=== PATIENT | male | born 1955 | race American Indian/Alaskan Native ===

== ENCOUNTER 2016-09-28 16:30 | Outpatient (CLI) | payer MEDICARE ==
[2016-09-28 16:58] LABS: BUN/Creatinine Ratio 14.61; Calcium 8.3 mg/dL (8.4-10.2); Chloride 103.4 mmol/L (98-107); Potassium 5.7 mmol/L (3.6-5.0)
== END 2016-09-28 16:31 | disposition home or self-care (01) ==
LOC: LAB 16:30
PROVIDERS: ATTEND Internal Medicine Nephrology
DX: I12.9 Hypertensive chronic kidney disease with stage 1 through stage 4 chronic kidney disease, or unspecified chronic kidney disease (principal); N18.3 Chronic kidney disease, stage 3 (moderate); E08.29 Diabetes mellitus due to underlying condition with other diabetic kidney complication; I50.9 Heart failure, unspecified; R94.4 Abnormal results of kidney function studies; R60.9 Edema, unspecified; R80.9 Proteinuria, unspecified
CPT/HCPCS: 36415; 80048

== ENCOUNTER 2016-10-05 16:53 | Outpatient (CLI) | payer MEDICARE ==
[2016-10-05 17:39] LABS: Bilirubin,Urine NEG (Negative); Blood,Urine NEG (Negative); Ketones,Urine NEG (Negative); Leukocyte Esterase,Urine NEG (Negative); Nitrite,Urine NEG (Negative); Protein,Urine >500 mg/dL (Negative); Urobilinogen,Urine < 2.0 mg/dL (<2.0)
[2016-10-05 17:50] LABS: Potassium, Urine 49.92 mEq/L
[2016-10-05 17:51] LABS: Albumin 3.6 g/dL (3.9-5); BUN/Creatinine Ratio 16.52; Calcium 8.6 mg/dL (8.4-10.2); Chloride 104.8 mmol/L (98-107); Phosphorous 3.9 mg/dL (2.5-4.5); Potassium 5.4 mmol/L (3.6-5.0)
== END 2016-10-05 16:54 | disposition home or self-care (01) ==
LOC: LAB 16:53
PROVIDERS: ATTEND Internal Medicine Nephrology
DX: N18.3 Chronic kidney disease, stage 3 (moderate) (principal)
CPT/HCPCS: 36415; 80048; 81001; 82040; 82436; 83930; 83935; 84100; 84133; 84300

== ENCOUNTER 2017-12-21 13:23 | Outpatient (CLI) | payer MEDICARE ==
[2017-12-21 13:01] LABS: Calcium 8.2 mg/dL (8.4-10.2)
== END 2017-12-21 13:24 | disposition home or self-care (01) ==
LOC: LAB 13:23
PROVIDERS: ATTEND Internal Medicine Nephrology
DX: I12.9 Hypertensive chronic kidney disease with stage 1 through stage 4 chronic kidney disease, or unspecified chronic kidney disease (principal); N18.4 Chronic kidney disease, stage 4 (severe); E11.22 Type 2 diabetes mellitus with diabetic chronic kidney disease; D63.1 Anemia in chronic kidney disease; E87.5 Hyperkalemia; I73.9 Peripheral vascular disease, unspecified; E87.2 Acidosis; Z79.899 Other long term (current) drug therapy
CPT/HCPCS: 36415; 80048

== ENCOUNTER 2019-03-11 17:28 | Inpatient (IN) | payer MEDICARE ==
[2019-03-11] MEDS ORDERED: PROTONIX IV ONE (17:53)
[2019-03-11] MEDS ORDERED: NACL 0.9% 500 ML 500 ML IV ONE (17:53)
[2019-03-11] MEDS ORDERED: ZOFRAN IV ONE (17:53)
--- NOTE | 2019-03-11 17:55 | Emergency Department Report ---
ED GI Bleed HPI - General Chief complaint: GI Bleed Stated complaint: GI BLEED Time Seen by Provider: 03/11/19 17:36 Source: patient, EMS (ems notes not available at time of chart dictation. Verbal report received from EMS), RN notes reviewed, old records reviewed Mode of arrival: Stretcher Limitations: Physical Limitation - History of Present Illness Initial comments: This is a pleasant 63-year-old gentleman. The patient is not known to this provider previously. Nephrology: Dr. Ez Reddy medical history: End-stage renal disease, on dialysis, reportedly Sunday, Sunday, Sunday, peripheral artery disease, left lower extremity below-knee a mputation, type 2 diabetes and hypertension. Patient takes heparin while receiving dialysis, otherwise, does not receive anticoagulation. Patient presents to the emergency room today with a complaint of nausea, vomiting 3, dark bloody stools, and 2 episodes of bloody emesis. Nausea started a few days ago, but he emesis and dark stool started today. Positive abdominal cramping, but no pain. Symptoms are constant, did not radiate anywhere, and worsens when he attempts to eat or drink. MD complaint: gross hematemesis, melena -: Gradual, days(s) Quality: cramping Consistency: intermittent Improves with: other Worsens with: other Context: blood thinners, other - Related Data Home Medications Medication Instructions Recorded Confirmed Last Taken B Complex W-C No.20/Folic Acid 1 mg PO QDAY 03/11/19 03/11/19 Unknown [Virt-Caps Softgel] Calcium Acetate [Phoslo] 667 mg PO TID 03/11/19 03/11/19 Unknown Furosemide [Lasix TAB] 80 mg PO QAM 03/11/19 03/11/19 Unknown Sevelamer Carbonate [Renvela] 800 mg PO TIDWM 03/11/19 03/11/19 Unknown cloNIDine [Catapres] 0.1 mg PO TID 03/11/19 03/11/19 Unknown Previous Rx's Medication Instructions Recorded Last Taken Type amLODIPine [Norvasc] 10 mg PO DAILY #30 tablet 02/14/17 Unknown Rx Allergies Allergy/AdvReac Type Severity Reaction Status Date / Time No Known Allergies Allergy Verified 02/09/17 17:59 ED Review of Systems ROS: Stated complaint: GI BLEED Other details as noted in HPI Constitutional: malaise. denies: fever Eyes: denies: eye discharge ENT: denies: epistaxis Respiratory: denies: cough Cardiovascular: denies: chest pain Gastrointestinal: nausea, hematemesis, melena. denies: hematochezia Genitourinary: as per HPI. denies: dysuria Musculoskeletal: denies: arthralgia Skin: denies: lesions Neurological: weakness Psychiatric: anxiety Hematological/Lymphatic: denies: easy bleeding ED Past Medical Hx - Past Medical History Previous Medical History?: Yes Hx Hypertension: Yes Hx Heart Attack/AMI: No Hx Congestive Heart Failure: No Hx Diabetes: Yes Hx Renal Disease: Yes (HD MWF) Hx Seizures: No Hx Asthma: No Hx COPD: No Additional medical history: NEUROPATHY - Surgical History Past Surgical History?: Yes Hx Appendectomy: Yes Additional Surgical History: LEFT BKA. TONSILLECTOMY - Social History Smoking Status: Never Smoker Substance Use Type: None - Medications Home Medications: Home Medications Medication Instructions Recorded Confirmed Last Taken Type amLODIPine [Norvasc] 10 mg PO DAILY #30 tablet 02/14/17 03/11/19 Unknown Rx B Complex W-C No.20/Folic Acid 1 mg PO QDAY 03/11/19 03/11/19 Unknown History [Virt-Caps Softgel] Calcium Acetate [Phoslo] 667 mg PO TID 03/11/19 03/11/19 Unknown History Furosemide [Lasix TAB] 80 mg PO QAM 03/11/19 03/11/19 Unknown History Sevelamer Carbonate [Renvela] 800 mg PO TIDWM 03/11/19 03/11/19 Unknown History cloNIDine [Catapres] 0.1 mg PO TID 03/11/19 03/11/19 Unknown History ED Physical Exam - General Limitations: Physical Limitation General appearance: alert, anxious - Head Head exam: Present: atraumatic, normocephalic - Eye Eye exam: Present: normal appearance, EOMI. Absent: nystagmus - ENT ENT exam: Present: normal orophraynx, mucous membranes moist, normal external ear exam - Neck Neck exam: Present: normal inspection, full ROM. Absent: tenderness, meningism us - Respiratory Respiratory exam: Present: normal lung sounds bilaterally. Absent: respiratory distress - Cardiovascular Cardiovascular Exam: Present: regular rate, normal rhythm, normal heart sounds. Absent: bradycardia, tachycardia, irregular rhythm, systolic murmur, diastolic murmur, rubs, gallop - GI/Abdominal GI/Abdominal exam: Present: soft. Absent: distended, tenderness, guarding, rebound, rigid, pulsatile mass - Rectal Rectal exam: Present: normal inspection, heme (+) stool, bloody stool, other (chaperoned by nurse Aziza Mccallum) - Extremities Exam Extremities exam: Present: normal inspection, full ROM, other (left lower extremity status post below-knee amputation, prosthesis is in place. 2+ pulses noted in the bilateral upper extremity. There is no point bony tenderness.) - Back Exam Back exam: Present: normal inspection, full ROM. Absent: tenderness, CVA tenderness (R), CVA tenderness (L), paraspinal tenderness, vertebral tenderness - Neurological Exam Neurological exam: Present: alert, oriented X3, other (Extraocular movements intact. Tongue midline. No facial droop. Facial sensation intact to light touch in the V1, V2, V3 distribution bilaterally. 5 and 5 strength in 4 extremities.. Sensation is intact to light touch in 4 extremities.). Absent: motor sensory deficit - Psychiatric Psychiatric exam: Present: normal affect, normal mood, anxious - Skin Skin exam: Present: warm, dry, intact, normal color, other (permacath noted to right hemithorax, with no redness, pus or streaking.). Absent: rash ED Course Vital Signs 03/11/19 03/11/19 03/11/19 17:38 17:40 17:46 Temperature 98.2 F Pulse Rate 89 88 88 Respiratory 18 15 17 Rate Blood Pressure 117/60 117/60 Blood Pressure [Right] O2 Sat by Pulse 100 100 97 Oximetry 03/11/19 03/11/19 03/11/19 18:00 18:10 18:20 Temperature Pulse Rate 88 79 84 Respiratory 17 12 14 Rate Blood Pressure 112/55 108/40 128/51 Blood Pressure [Right] O2 Sat by Pulse 97 89 98 Oximetry 03/11/19 03/11/19 03/11/19 18:30 18:40 18:50 Temperature Pulse Rate 87 84 82 Respiratory 15 12 13 Rate Blood Pressure 128/51 128/51 138/70 Blood Pressure [Right] O2 Sat by Pulse 98 95 95 Oximetry 03/11/19 03/11/19 03/11/19 18:52 19:00 19:10 Temperature Pulse Rate 92 H 92 H Respiratory 15 18 14 Rate Blood Pressure 135/63 135/63 Blood Pressure [Right] O2 Sat by Pulse 100 99 100 Oximetry 03/11/19 03/11/19 03/11/19 19:20 19:30 19:40 Temperature Pulse Rate 92 H 89 89 Respiratory 20 14 13 Rate Blood Pressure 133/64 133/64 113/52 Blood Pressure [Right] O2 Sat by Pulse 100 98 96 Oximetry 03/11/19 03/11/19 03/11/19 19:44 19:50 20:00 Temperature Pulse Rate 88 89 85 Respiratory 19 17 13 Rate Blood Pressure 135/63 125/53 Blood Pressure 113/52 [Right] O2 Sat by Pulse 99 99 98 Oximetry 03/11/19 03/11/19 03/11/19 20:10 20:20 20:30 Temperature Pulse Rate 85 86 91 H Respiratory 19 13 14 Rate Blood Pressure 125/53 117/48 117/48 Blood Pressure [Right] O2 Sat by Pulse 96 98 100 Oximetry 03/11/19 03/11/19 03/11/19 20:40 20:50 21:00 Temperature Pulse Rate 88 88 91 H Respiratory 14 17 20 Rate Blood Pressure 117/48 117/48 125/53 Blood Pressure [Right] O2 Sat by Pulse 99 98 100 Oximetry 03/11/19 03/11/19 03/11/19 21:10 21:20 21:30 Temperature Pulse Rate 89 88 88 Respiratory 19 14 14 Rate Blood Pressure 125/53 125/53 125/53 Blood Pressure [Right] O2 Sat by Pulse 99 96 97 Oximetry 03/11/19 03/11/19 03/11/19 21:40 21:50 22:00 Temperature Pulse Rate 87 88 90 Respiratory 12 14 14 Rate Blood Pressure 125/53 125/53 125/53 Blood Pressure [Right] O2 Sat by Pulse 98 97 97 Oximetry 03/11/19 03/11/19 03/11/19 22:01 22:10 22:20 Temperature Pulse Rate 88 87 87 Respiratory 16 13 13 Rate Blood Pressure 148/57 138/54 Blood Pressure 148/57 [Right] O2 Sat by Pulse 98 97 96 Oximetry 03/11/19 03/11/19 03/11/19 22:30 22:40 22:41 Temperature Pulse Rate 95 H 100 H 94 H Respiratory 24 23 20 Rate Blood Pressure 138/54 141/62 Blood Pressure 142/62 [Right] O2 Sat by Pulse 98 97 98 Oximetry 03/11/19 03/11/19 03/11/19 22:50 23:00 23:10 Temperature Pulse Rate 91 H 89 89 Respiratory 15 16 19 Rate Blood Pressure 163/67 168/70 168/70 Blood Pressure [Right] O2 Sat by Pulse 98 96 99 Oximetry 03/11/19 03/11/19 03/11/19 23:20 23:30 23:40 Temperature Pulse Rate 87 86 89 Respiratory 14 13 19 Rate Blood Pressure 168/58 164/53 142/58 Blood Pressure 142/58 [Right] O2 Sat by Pulse 99 98 99 Oximetry 03/11/19 03/12/19 23:50 00:00 Temperature Pulse Rate 94 H 89 Respiratory 25 H 14 Rate Blood Pressure 143/66 164/53 Blood Pressure [Right] O2 Sat by Pulse 98 97 Oximetry - Reevaluation(s) Reevaluation #1: 03/11/19 18:29 Differential diagnosis, including not limited to: GERD, gastritis, hiatal hernia, upper GI bleed, anemia, electrolyte derangement Assessment and plan: 63-year-old gentleman with probable upper GI bleed. He is afebrile with reassuring vital signs. He is adamant that he does not want it packed red blood cell transfusion. He is amenable to IV placement, laboratory studies, and medical management. He is amenable to hospitalization. We will treat him with intravenous desmopressin, proton pump inhibitor, and consult gastroenterology. Contacted his covering vehicle dynamics engineer, Dr. Avelar, who agrees to follow in consultation. Reevaluation #2: 03/11/19 18:58 Discussed with gastroenterology, Dr. Baldomero Vee, he agrees with plan for admission and agrees with management plan Reevaluation #3: 03/11/19 19:09 X-ray of the chest unremarkable. Multiple discussions had with family regarding desmopressin. Family is amenable to desmopressin, fluids, and Protonix. Hospital physician, Dr. Rha Elaine to admit patient Reevaluation #4: 03/11/19 19:54 Laboratory studies have been checked by myself repeatedly. So far, potassium has not resulted. I will defer to the inpatient team to follow this up. - EJ/Peripheral Line Neck L Time Out Performed: Yes Indications: nurses unable to establis Skin Cleansed in Sterile Fashion: Yes Size: 20 Dressing Placed: Tegaderm Patient Tolerated Procedure: well ED Medical Decision Making - Lab Data Result diagrams: 03/12/19 05:24 03/12/19 05:24 Vital Signs 03/11/19 17:40 Temperature 98.2 F Pulse Rate 88 Respiratory 15 Rate Blood Pressure 117/60 O2 Sat by Pulse 100 Oximetry - EKG Data -: EKG Interpreted by Me EKG shows normal: sinus rhythm Rate: normal - EKG Data 03/11/19 18:44 This is a sinus rhythm, 82 beats per minute, rightward axis, QTC is prolonged, interventricular conduction delay, right bundle branch block, low voltage, abnormal EKG, not consistent with ST elevation myocardial infarction, unchanged from prior EKG from 2015. - Radiology Data Radiology results: pending Critical Care Time: Yes Critical care time in (mins) excluding proc time.: 35 Critical care attestation.: If time is entered above; I have spent that time in minutes in the direct care of this critically ill patient, excluding procedure time. ED Disposition Clinical Impression: GI bleed, ESRD (end stage renal disease) Disposition: DC-[id number] OP ADMIT IP TO THIS HOSP Is pt being admited?: Yes Condition: Serious
[2019-03-11] MEDS ORDERED: DDAVP 30 MCG in NACL 0.9% 50 ML IV ONE (18:30)
[2019-03-11 19:05] LABS: Basophils % (Auto) 0.6 % (0.0-1.8); Eosinophils # (Auto) 0.1 K/mm3 (0.0-0.4); Eosinophils % (Auto) 0.8 % (0.0-4.3); Hematocrit 26.5 % (35.5-45.6); Hemoglobin 9.3 gm/dl (11.8-15.2); Lymphocytes # (Auto) 0.6 K/mm3 (1.2-5.4); Lymphocytes % (Auto) 9.1 % (13.4-35.0); Mean Corpuscular HGB Conc 35 % (32-34); Mean Corpuscular Volume 87 fl (84-94); Monocytes # (Auto) 0.5 K/mm3 (0.0-0.8); Monocytes % (Auto) 6.8 % (0.0-7.3); Platelet Count 161 K/mm3 (140-440); Red Blood Count 3.05 M/mm3 (3.65-5.03); Red Cell Distribution Width 15.8 % (13.2-15.2)
--- NOTE | 2019-03-11 19:13 | XRay Report ---
CHEST 1 VIEW 6:36 PM INDICATION / CLINICAL INFORMATION: GI Bleed. Weakness for 3 days. COMPARISON: None available. FINDINGS: SUPPORT DEVICES: There is a right jugular permacath with the tip overlying the upper right atrium. HEART / MEDIASTINUM: The heart size and pulmonary vasculature are normal. LUNGS / PLEURA: No significant pulmonary or pleural abnormality. No pneumothorax. ADDITIONAL FINDINGS: No significant additional findings. IMPRESSION: No acute findings. Signer Name: Vito Richard MD Signed: 03/11/2019 6:08 PM Workstation Name: [id number]
[2019-03-11 19:17] LABS: INR 1.2 (0.87-1.13)
[2019-03-11 19:18] LABS: Calcium 10.6 mg/dL (8.4-10.2)
[2019-03-11] MEDS ORDERED: ZOFRAN IV PRN (19:41)
[2019-03-11] MEDS ORDERED: SODIUM CHLORIDE FLUSH SYRINGE 10 ML IV PRN (19:41)
[2019-03-11] MEDS ORDERED: TYLENOL PO PRN (19:41)
[2019-03-11] MEDS ORDERED: D50W (25GM) Syringe IV PRN (19:44)
[2019-03-11] MEDS ORDERED: NACL 0.9% IV SCH (20:00)
[2019-03-11] MEDS ORDERED: NACL 0.9% 1000 ML 1,000 ML IV SCH (20:00)
[2019-03-11] MEDS ORDERED: DDAVP IV SCH (20:00)
[2019-03-11] MEDS: PROTONIX 80 MG in NACL 0.9% 100 ML IV SCH (20:05)
--- NOTE | 2019-03-11 20:10 | History and Physical Report ---
<YUNIOR WILLSON - Last Filed: 03/11/19 21:24> History of Present Illness Date of examination: 03/11/19 Date of admission: 03/11/19 19:10 Chief complaint: Nausea, emesis, dark bloody stools History of present illness: 63-year-old -Vietnamese male with history of ESRD on HD M/W/F, DM2 with neuropathy, HTN, left BKA presents to [facility] ED with complaints of nausea, vomiting, hematemesis, and dark bloody stools. Patient states that he has been experiencing nausea and vomiting for the past 2 days. He developed dark bloody stools and hematemesis one day ago. His last HD was yesterday and he received heparin during the HD session. Patient states that he took ibuprofen 1600mg daily x4 days for pain associated with diabetic neuropathy. He is unsure whether the ibuprofen is contributing to his current symptoms. He admits to dif fuse abdominal cramping but denies pain. Past History Past Medical History: diabetes (DM2), ESRD (on HD M/W/F), hypertension, other Past Surgical History: appendectomy, tonsillectomy, Other (left BKA). denies: total hip replacement (neuropathy) Social history: Family history: no significant family history Medications and Allergies Allergies Allergy/AdvReac Type Severity Reaction Status Date / Time No Known Allergies Allergy Verified 02/09/17 17:59 Home Medications Medication Instructions Recorded Confirmed Last Taken Type amLODIPine [Norvasc] 10 mg PO DAILY #30 tablet 02/14/17 03/11/19 Unknown Rx B Complex W-C No.20/Folic Acid 1 mg PO QDAY 03/11/19 03/11/19 Unknown History [Virt-Caps Softgel] Calcium Acetate [Phoslo] 667 mg PO TID 03/11/19 03/11/19 Unknown History Furosemide [Lasix TAB] 80 mg PO QAM 03/11/19 03/11/19 Unknown History Sevelamer Carbonate [Renvela] 800 mg PO TIDWM 03/11/19 03/11/19 Unknown History cloNIDine [Catapres] 0.1 mg PO TID 03/11/19 03/11/19 Unknown History Active Meds: Active Medications Acetaminophen (Tylenol) 650 mg PO Q4H PRN PRN Reason: Pain MILD(1-3)/Fever >100.5/RUIZ Dextrose (D50w (25gm) Syringe) 50 ml IV PRN PRN PRN Reason: Hypoglycemia Pantoprazole Sodium 80 mg/ (Sodium Chloride) 100 mls @ 10 mls/hr IV DIRECT [place] Sodium Chloride (Nacl 0.9% 1000 Ml) 1,000 mls @ 42 mls/hr IV DIRECT [place] Desmopressin Acetate 8.1 mcg/ (Sodium Chloride) 52.025 mls @ 100 mls/hr IV Q8H [place] Stop: 03/12/19 04:32 Insulin Human Regular (Humulin R) 0 units SUB-Q Q6HR [place]; Protocol Ondansetron HCl (Zofran) 4 mg IV Q8H PRN PRN Reason: Nausea And Vomiting Sodium Chloride (Sodium Chloride Flush Syringe 10 Ml) 10 ml IV BID [place] Sodium Chloride (Sodium Chloride Flush Syringe 10 Ml) 10 ml IV PRN PRN PRN Reason: LINE FLUSH Review of Systems All systems: negative (reviewed and no additional multiple complaints except as noted below) Gastrointestinal: nausea, vomiting, hematochezia Exam - Physical Exam Narrative exam: Physical exam General appearance: Present: No acute distress, alert and oriented 3, pleasant, well-developed -Vietnamese male - EENT Eyes: Present: PERRL, EOM intact ENT: hearing intact, normal dentition - Neck Neck: Present: supple, normal ROM - Respiratory Respiratory effort: Non-labored Respiratory: bilateral: diminished (bases) - Cardiovascular Heart rate: 88 (bpm) Rhythm: Sinus rhythm Heart Sounds: Present: S1 & S2. Absent: rub, click - Extremities Extremities: no ischemia, pulses intact, abnormal (BKA, right foot: second toe and fourth toe wound) - Peripheral Assessment Peripheral Pulses: within normal limits - Abdominal General gastrointestinal: soft, non-tender, normal bowel sounds - Integumentary Integumentary: Present: warm, dry - Musculoskeletal Musculoskeletal: Able to move all extremities -Neurological Neurological: CN II-XII intact - Psychiatric Psychiatric: cooperative - Constitutional Vitals: Temp Pulse Resp BP Pulse Ox 98.2 F 88 19 113/52 99 03/11/19 17:40 03/11/19 19:44 03/11/19 19:44 03/11/19 19:44 03/11/19 19:44 Results - Labs CBC & Chem 7: 07/02/19 18:23 03/11/19 18:23 Labs: Laboratory Last Values WBC 6.9 K/mm3 (4.5-11.0) 03/11/19 18:23 RBC 3.05 M/mm3 (3.65-5.03) L 03/11/19 18:23 Hgb 9.3 gm/dl (11.8-15.2) L 03/11/19 18:23 Hct 26.5 % (35.5-45.6) L 03/11/19 18:23 MCV 87 fl (84-94) 03/11/19 18:23 MCH 31 pg (28-32) 03/11/19 18: MCHC 35 % (32-34) H 03/11/19 18: RDW 15.8 % (13.2-15.2) H 03/11/19 18:23 Plt Count 161 K/mm3 (140-440) 03/11/19 18:23 Lymph % (Auto) 9.1 % (13.4-35.0) L 03/11/19 18:23 [place] % (Auto) 6.8 % (0.0-7.3) 03/11/19 18:23 Eos % (Auto) 0.8 % (0.0-4.3) 03/11/19 18:23 Baso % (Auto) 0.6 % (0.0-1.8) 03/11/19 18:23 Lymph # 0.6 K/mm3 (1.2-5.4) L 03/11/19 18:23 [place] # 0.5 K/mm3 (0.0-0.8) 03/11/19 18:23 Eos # 0.1 K/mm3 (0.0-0.4) 03/11/19 18:23 Baso # 0.0 K/mm3 (0.0-0.1) 03/11/19 18:23 Seg Neutrophils % 82.7 % (40.0-70.0) H 03/11/19 18:23 Seg Neutrophils # 5.7 K/mm3 (1.8-7.7) 03/11/19 18:23 PT 14.9 Sec. (12.2-14.9) 03/11/19 18:23 INR 1.20 (0.87-1.13) H 03/11/19 18:23 Sodium 135 mmol/L (137-145) L 03/11/19 18:23 Chloride 91.0 mmol/L (98-107) L 03/11/19 18:23 Carbon Dioxide 25 mmol/L (22-30) 03/11/19 18:23 25 mmol/L 03/11/19 18:23 BUN 76 mg/dL (9-20) H 03/11/19 18:23 11.4 mg/dL (0.8-1.5) H 03/11/19 18:23 Estimated GFR 6 ml/min 03/11/19 18:23 7 % 03/11/19 18:23 Glucose 319 mg/dL (75-100) H 03/11/19 18:23 Calcium 10.6 mg/dL (8.4-10.2) H 03/11/19 18:23 Magnesium 2.70 mg/dL (1.7-2.3) H 03/11/19 18:23 Magnesium 2.70 mg/dL (1.7-2.3) H 03/11/19 18:23 62 units/L (55-170) 03/11/19 18:23 42 units/L (13-60) 03/11/19 18:23 Blood Type O POSITIVE 03/11/19 18:23 - Imaging and Cardiology Chest x-ray: report reviewed (No significant pulmonary or pleural abnormality. No pneumothorax. ), image reviewed Assessment and Plan Assessment and plan: 63-year-old -Vietnamese male with history of ESRD on HD M/W/F, DM2 with neuropathy, HTN, left BKA presents to [facility] ED with complaints of nausea, vomiting, hematemesis, and dark bloody stools. CXR did not show any acute cardiopulmonary abnormalities. He was found to be anemic with hemoglobin of 9.3. Will admit to surgical floor. Upper GI Bleed ESRD on HD M/W/F Acute on chronic Anemia Hyperkalemia Mild hyponatremia HTN Right foot ( 2nd and 4th toe) wound Plan: Continue supportive care Nothing by mouth Start Protonix gtt Gentle hydration with NS @ 42ml/hr Monitor hemoglobin; patient is Restorationist and refuses transfusion IV Desmopressin 0.3mcg/kg q 8hrs x2 Monitor electrolytes Potassium on admission 6.2 kg, Order:1 amp D50, 6 units regular insulin, 1 amp of sodium bicarbonate, calcium gluconate 2 g Nephrology following for HD mgmt GI consulted GI consult for right foot wound, patient follows [place] [facility] as outpatient DVT PPX SCD hold off of systemic AC Advance Directives: No VTE prophylaxis?: Mechanical Plan of care discussed with patient/family: Yes <RAMILA PIZARRO - Last Filed: 03/12/19 05:02> History of Present Illness Date of admission: 03/11/19 19:10 Medications and Allergies Active Meds: Active Medications Acetaminophen (Tylenol) 650 mg PO Q4H PRN PRN Reason: Pain MILD(1-3)/Fever >100.5/RUIZ Dextrose (D50w (25gm) Syringe) 50 ml IV PRN PRN PRN Reason: Hypoglycemia Pantoprazole Sodium 80 mg/ (Sodium Chloride) 100 mls @ 10 mls/hr IV DIRECT [place] Last Admin: 03/11/19 20:05 Dose: 8 mg/hr, 10 mls/hr Documented by: Sodium Chloride (Nacl 0.9% 1000 Ml) 1,000 mls @ 42 mls/hr IV DIRECT [place] Last Admin: 03/11/19 21:00 Dose: 42 mls/hr Documented by: Insulin Human Regular (Humulin R) 0 units SUB-Q Q6HR [facility]; Protocol Last Admin: 03/12/19 01:40 Dose: 3 units Documented by: Ondansetron HCl (Zofran) 4 mg IV Q8H PRN PRN Reason: Nausea And Vomiting Sodium Chloride (Sodium Chloride Flush Syringe 10 Ml) 10 ml IV BID [facility] Last Admin: 03/11/19 21:59 Dose: 10 ml Documented by: Sodium Chloride (Sodium Chloride Flush Syringe 10 Ml) 10 ml IV PRN PRN PRN Reason: LINE FLUSH Exam - Constitutional Vitals: Temp Pulse Resp BP Pulse Ox 98.9 F 89 16 148/55 98 03/12/19 04:02 03/12/19 04:50 03/12/19 04:50 03/12/19 04:50 03/12/19 04:50 Results - Labs CBC & Chem 7: 03/11/19 18:23 03/11/19 18:23 Labs: Laboratory Last Values WBC 6.9 K/mm3 (4.5-11.0) 03/11/19 18:23 RBC 3.05 M/mm3 (3.65-5.03) L 03/11/19 18:23 Hgb 9.3 gm/dl (11.8-15.2) L 03/11/19 18:23 Hct 26.5 % (35.5-45.6) L 03/11/19 18:23 MCV 87 fl (84-94) 03/11/19 18:23 MCH 31 pg (28-32) 03/11/19 18: MCHC 35 % (32-34) H 03/11/19 18:23 RDW 15.8 % (13.2-15.2) H 03/11/19 18: Plt Count 161 K/mm3 (140-440) 03/11/19 18:23 Lymph % (Auto) 9.1 % (13.4-35.0) L 03/11/19 18:23 [place] % (Auto) 6.8 % (0.0-7.3) 03/11/19 18:23 Eos % (Auto) 0.8 % (0.0-4.3) 03/11/19 18:23 Baso % (Auto) 0.6 % (0.0-1.8) 03/11/19 18:23 Lymph # 0.6 K/mm3 (1.2-5.4) L 03/11/19 18:23 [place] # 0.5 K/mm3 (0.0-0.8) 03/11/19 18:23 Eos # 0.1 K/mm3 (0.0-0.4) 03/11/19 18:23 Baso # 0.0 K/mm3 (0.0-0.1) 03/11/19 18:23 Seg Neutrophils % 82.7 % (40.0-70.0) H 03/11/19 18: Seg Neutrophils # 5.7 K/mm3 (1.8-7.7) 03/11/19 18:23 PT 14.9 Sec. (12.2-14.9) 03/11/19 18:23 INR 1.20 (0.87-1.13) H 03/11/19 18:23 Sodium 135 mmol/L (137-145) L 03/11/19 18:23 Potassium 6.2 mmol/L (3.6-5.0) H* 03/11/19 18:23 Chloride 91.0 mmol/L (98-107) L 03/11/19 18:23 Carbon Dioxide 25 mmol/L (22-30) 03/11/19 18:23 25 mmol/L 03/11/19 18:23 BUN 76 mg/dL (9-20) H 03/11/19 18:23 11.4 mg/dL (0.8-1.5) H 03/11/19 18:23 Estimated GFR 6 ml/min 03/11/19 18:23 7 % 03/11/19 18:23 Glucose 319 mg/dL (75-100) H 03/11/19 18:23 POC Glucose 238 (70-105) H 03/12/19 00:22 8.0 % (4-6) H 03/11/19 Unknown Calcium 10.6 mg/dL (8.4-10.2) H 03/11/19 18:23 Magnesium 2.70 mg/dL (1.7-2.3) H 03/11/19 18:23 Magnesium 2.70 mg/dL (1.7-2.3) H 03/11/19 18:23 62 units/L (55-170) 03/11/19 18:23 42 units/L (13-60) 03/11/19 18:23 Blood Type O POSITIVE 03/11/19 18:23 Antibody Screen Negative 03/11/19 18:23 Assessment and Plan Assessment and plan: Wound care consult for Rt foot wound---Typo GI consult corrected
[2019-03-11] MEDS ORDERED: D50W (25GM) Syringe IV ONE (20:25)
[2019-03-11] MEDS ORDERED: HumuLIN R SUB-Q ONE (20:30)
[2019-03-11] MEDS ORDERED: CALCIUM GLUCONATE 2,000 MG in NACL 0.9% 100 ML IV ONE (20:37)
[2019-03-11] MEDS ORDERED: HumuLIN R ONE (21:23)
[2019-03-11] MEDS ORDERED: NACL 0.9% 1000 ML 1,000 ML ONE (21:39)
[2019-03-11] MEDS: SODIUM CHLORIDE FLUSH SYRINGE 10 ML IV SCH (21:59)
[2019-03-12] MEDS: HumuLIN R SUB-Q SCH ×4 (01:40→18:39)
[2019-03-12] MEDS ORDERED: DDAVP 30 MCG in NACL 0.9% 50 ML IV ONE (03:00)
[2019-03-12 05:39] LABS: Basophils % (Auto) 0.2 % (0.0-1.8); Eosinophils % (Auto) 0.4 % (0.0-4.3); Hematocrit 22.9 % (35.5-45.6); Hemoglobin 7.7 gm/dl (11.8-15.2); Lymphocytes # (Auto) 0.9 K/mm3 (1.2-5.4); Mean Corpuscular HGB Conc 34 % (32-34); Mean Corpuscular Volume 89 fl (84-94); Monocytes # (Auto) 0.9 K/mm3 (0.0-0.8); Monocytes % (Auto) 13.4 % (0.0-7.3); Platelet Count 138 K/mm3 (140-440); Red Blood Count 2.57 M/mm3 (3.65-5.03)
[2019-03-12 05:59] LABS: Calcium 10.9 mg/dL (8.4-10.2)
[2019-03-12] MEDS: PROTONIX 80 MG in NACL 0.9% 100 ML IV SCH ×2 (07:34→22:50)
[2019-03-12] MEDS ORDERED: NACL 0.9% 100 ML IV PRN (09:11)
--- NOTE | 2019-03-12 10:43 | Gastroenterology Consultation ---
History of Present Illness - Reason for Consult Consult date: 03/12/19 GI bleed Requesting physician: YARITZA SANDOVAL - History of Present Illness Patient is a 63 y/o male with PMH of ESRD on HD, DM with neuropathy, HTN, s/p left BKA, and chronic anemia who presented to ED with c/o vomiting blood and dark bloody stools to which GI has been consulted. This morning patient was resting in bed w/o acute distress. Reports N/V with dark black emesis and BM with dark stool yesterday. No hematemesis, hematochezia, or active signs of bleeding this am. No hx of previous GI bleeding, PUD, or liver disease. Admits to recent heavy use of Ibuprofen x past 4 days for lower extremity pain. No alcohol use. Denies fever, wt loss, CP, SOB, abdominal pain, diarrhea or constipation. Past History Past Medical History: diabetes (DM2), ESRD (on HD M/W/F), hypertension, other Past Surgical History: appendectomy, tonsillectomy, Other (left BKA). denies: total hip replacement (neuropathy) Social history: Family history: no significant family history Medications and Allergies Allergies Allergy/AdvReac Type Severity Reaction Status Date / Time No Known Allergies Allergy Verified 02/09/17 17:59 Home Medications Medication Instructions Recorded Confirmed Last Taken Type amLODIPine [Norvasc] 10 mg PO DAILY #30 tablet 02/14/17 03/11/19 Unknown Rx B Complex W-C No.20/Folic Acid 1 mg PO QDAY 03/11/19 03/11/19 Unknown History [Virt-Caps Softgel] Calcium Acetate [Phoslo] 667 mg PO TID 03/11/19 03/11/19 Unknown History Furosemide [Lasix TAB] 80 mg PO QAM 03/11/19 03/11/19 Unknown History Sevelamer Carbonate [Renvela] 800 mg PO TIDWM 03/11/19 03/11/19 Unknown History cloNIDine [Catapres] 0.1 mg PO TID 03/11/19 03/11/19 Unknown History Active Meds: Active Medications Acetaminophen (Tylenol) 650 mg PO Q4H PRN PRN Reason: Pain MILD(1-3)/Fever >100.5/RUIZ Dextrose (D50w (25gm) Syringe) 50 ml IV PRN PRN PRN Reason: Hypoglycemia Pantoprazole Sodium 80 mg/ (Sodium Chloride) 100 mls @ 10 mls/hr IV DIRECT WINSTON Last Admin: 03/12/19 07:34 Dose: 8 mg/hr, 10 mls/hr Documented by: Sodium Chloride (Nacl 0.9% 1000 Ml) 1,000 mls @ 42 mls/hr IV DIRECT WINSTON Last Admin: 03/11/19 21:00 Dose: 42 mls/hr Documented by: Sodium Chloride (Nacl 0.9%) 100 mls @ 999 mls/hr IV MANINDER PRN PRN Reason: Hypotension Insulin Human Regular (Humulin R) 0 units SUB-Q Q6HR WINSTON; Protocol Last Admin: 03/12/19 01:40 Dose: 3 units Documented by: Ondansetron HCl (Zofran) 4 mg IV Q8H PRN PRN Reason: Nausea And Vomiting Sodium Chloride (Sodium Chloride Flush Syringe 10 Ml) 10 ml IV BID WINSTON Last Admin: 03/11/19 21:59 Dose: 10 ml Documented by: Sodium Chloride (Sodium Chloride Flush Syringe 10 Ml) 10 ml IV PRN PRN PRN Reason: LINE FLUSH medications reviewed/updated as required Review of Systems - Review of Systems All systems: negative Gastrointestinal: coffee ground emesis, melena Exam - Constitutional Vital Signs: Temp Pulse Resp BP Pulse Ox 98.5 F 91 H 10 L 128/28 97 03/12/19 08:00 03/12/19 10:10 03/12/19 10:10 03/12/19 10:10 03/12/19 10:10 General appearance: no acute distress - EENT Eyes: PERRL, EOM intact ENT: hearing intact - Respiratory Respiratory effort: normal - Cardiovascular Rhythm: regular - Gastrointestinal General gastrointestinal: Present: soft, non-tender, non-distended, normal bowel sounds - Musculoskeletal Musculoskeletal: other (left BKA) - Neurologic Neurological: alert and oriented x3 - Labs CBC & Chem 7: 03/12/19 05:24 03/12/19 05:24 Lab Results: Laboratory Results - last 24 hr 03/11/19 03/11/19 03/11/19 18:23 18:23 18:23 WBC 6.9 RBC 3.05 L Hgb 9.3 L Hct 26.5 L MCV 87 MCH 31 MCHC 35 H RDW 15.8 H Plt Count 161 Lymph % (Auto) 9.1 L [place] % (Auto) 6.8 Eos % (Auto) 0.8 Baso % (Auto) 0.6 Lymph # 0.6 L [place] # 0.5 Eos # 0.1 Baso # 0.0 Seg Neutrophils % 82.7 H Seg Neutrophils # 5.7 PT 14.9 INR 1.20 H Sodium 135 L Potassium 6.2 H* Chloride 91.0 L Carbon Dioxide 25 Anion Gap 25 BUN 76 H Creatinine 11.4 H Estimated GFR 6 BUN/Creatinine Ratio 7 Glucose 319 H POC Glucose Hemoglobin A1c Calcium 10.6 H Magnesium 2.70 H Total Creatine Kinase Lipase 42 Blood Type Antibody Screen 03/11/19 03/11/19 03/11/19 18:23 18:23 Unknown WBC RBC Hgb Hct MCV MCH MCHC RDW Plt Count Lymph % (Auto) [place] % (Auto) Eos % (Auto) Baso % (Auto) Lymph # T[place] # Eos # Baso # Seg Neutrophils % Seg Neutrophils # PT INR Sodium Potassium Chloride Carbon Dioxide Anion Gap BUN Creatinine Estimated GFR BUN/Creatinine Ratio Glucose POC Glucose Hemoglobin A1c 8.0 H Calcium Magnesium 2.70 H Total Creatine Kinase 62 Lipase Blood Type O POSITIVE Antibody Screen Negative 03/12/19 03/12/19 03/12/19 00:22 05:24 05:24 WBC 6.7 RBC 2.57 L Hgb 7.7 L Hct 22.9 L MCV 89 MCH 30 MCHC 34 RDW 16.0 H Plt Count 138 L Lymph % (Auto) 13.0 L [place] % (Auto) 13.4 H Eos % (Auto) 0.4 Baso % (Auto) 0.2 Lymph # 0.9 L [place]itus # 0.9 H Eos # 0.0 Baso # 0.0 Seg Neutrophils % 73.0 H Seg Neutrophils # 4.9 PT INR Sodium 140 Potassium 5.4 H Chloride 95.4 L Carbon Dioxide 24 Anion Gap 26 BUN 90 H Creatinine 12.6 H Estimated GFR 5 BUN/Creatinine Ratio 7 Glucose 180 H POC Glucose 238 H Hemoglobin A1c Calcium 10.9 H Magnesium Total Creatine Kinase Lipase Blood Type Antibody Screen 03/12/19 05:56 WBC RBC Hgb Hct MCV MCH MCHC RDW Plt Count Lymph % (Auto) [place] % (Auto) Eos % (Auto) Baso % (Auto) Lymph # [place] # Eos # Baso # Seg Neutrophils % Seg Neutrophils # PT INR Sodium Potassium Chloride Carbon Dioxide Anion Gap BUN Creatinine Estimated GFR BUN/Creatinine Ratio Glucose POC Glucose 211 H Hemoglobin A1c Calcium Magnesium Total Creatine Kinase Lipase Blood Type Antibody Screen Assessment and Plan 1.UGIB 2.coffee-ground emesis 3.melena 4.acute on chronic anemia 5.ESRD on HD -H/H 7./.-trending down- hold blood thinning medications -continue to monitor H/H- patient is a Denominational and refuses transfusion- risks discussed with patient with understanding confirmed -no active signs of bleeding this am- currently HD stable -etiology- possible ulcer given recent heavy NSAID use vs other -will schedule for EGD today for further evaluation -Keep NPO -continue protonix drip -continue supportive care -will follow
--- NOTE | 2019-03-12 14:19 | Progress Note ---
Assessment and Plan Assessment and plan: Patient is 63-year-old -[place] man who is a Jehovah Witness with a history of ESRD on HD M/W/F, DM2 with neuropathy, HTN and left BKA who presents to [facility] ED with nausea, vomiting, hematemesis, and dark bloody stools. CXR did not show any acute cardiopulmonary abnormalities. He was found to be anemic with hemoglobin of 9.3. Acute GI hemorrhage, with drop in HCT: EGD pending, treat with protonix IV ESRD on HD M/W/F: Nephrology consulted, input noted Acute on chronic Anemia Hyperkalemia: need HD Mild hyponatremia HTN Right foot ( 2nd and 4th toe) wound: wound care consulted, 2nd right toe looks like dry gangrene Jehovah Witness, refuses blood transfusion. History Interval history: Patient was seen and examined. Follow-up on current diagnosis AGIB. No overnight events reported to me. Patient denies any chest pain, shortness breath, or severe headaches. Imaging, nursing note, chart, labs and old chart reviewed. Di scussed with patient. at bedside. Hospitalist Physical - Physical exam Narrative exam: Gen: WDWN, NAD, Awake, Alert, Orientated HEENT: NCAT, EOMI, PERRL, OP Clear Neck: supple, no adenopathy, no thyromegaly, no JVD CVS/Heart: RRR, normal S1S2, pulses present bilaterally Chest/Lungs: CTA B, Symmetrical chest expansion, good air entry bilaterally GI/Abdomen: soft, NTND, good bowel sounds, no guarding or rebound /Bladder: no suprapubic tenderness, no CVA or paraspinal tenderness Extermity/Skin: no c/c/e, no obvious rash MSK: FROM x 4 Neuro: CN 2-12 grossly intact, no new focal deficits Psych: calm - Constitutional Vitals: Temp Pulse Resp BP Pulse Ox 98.5 F 89 16 160/70 96 03/12/19 08:00 03/12/19 10:30 03/12/19 10:30 03/12/19 11:10 03/12/19 11:10 Results - Labs CBC & Chem 7: 03/12/19 05:24 03/12/19 05:24 Labs: Laboratory Last Values WBC 6.7 K/mm3 (4.5-11.0) 03/12/19 05:24 RBC 2.57 M/mm3 (3.65-5.03) L 03/12/19 05:24 Hgb 7.7 gm/dl (11.8-15.2) L 03/12/19 05:24 Hct 22.9 % (35.5-45.6) L 03/12/19 05:24 MCV 89 fl (84-94) 03/12/19 05:24 MCH 30 pg (28-32) 03/12/19 05:24 MCHC 34 % (32-34) 03/12/19 05:24 RDW 16.0 % (13.2-15.2) H 03/12/19 05:24 Plt Count 138 K/mm3 (140-440) L 03/12/19 05:24 Lymph % (Auto) 13.0 % (13.4-35.0) L 03/12/19 05:24 [place] % (Auto) 13.4 % (0.0-7.3) H 03/12/19 05:24 Eos % (Auto) 0.4 % (0.0-4.3) 03/12/19 05:24 Baso % (Auto) 0.2 % (0.0-1.8) 03/12/19 05:24 Lymph # 0.9 K/mm3 (1.2-5.4) L 03/12/19 05:24 [place] # 0.9 K/mm3 (0.0-0.8) H 03/12/19 05:24 Eos # 0.0 K/mm3 (0.0-0.4) 03/12/19 05:24 Baso # 0.0 K/mm3 (0.0-0.1) 03/12/19 05:24 Seg Neutrophils % 73.0 % (40.0-70.0) H 03/12/19 05:24 Seg Neutrophils # 4.9 K/mm3 (1.8-7.7) 03/12/19 05:24 PT 14.9 Sec. (12.2-14.9) 03/11/19 18:23 INR 1.20 (0.87-1.13) H 03/11/19 18:23 Sodium 140 mmol/L (137-145) 03/12/19 05:24 Potassium 5.4 mmol/L (3.6-5.0) H 03/12/19 05:24 Chloride 95.4 mmol/L (98-107) L 03/12/19 05:24 Carbon Dioxide 24 mmol/L (22-30) 03/12/19 05:24 26 mmol/L 03/12/19 05:24 BUN 90 mg/dL (9-20) H 03/12/19 05:24 12.6 mg/dL (0.8-1.5) H 03/12/19 05:24 Estimated GFR 5 ml/min 03/12/19 05:24 7 % 03/12/19 05:24 Glucose 180 mg/dL (75-100) H 03/12/19 05:24 POC Glucose 214 (70-105) H 03/12/19 12:53 8.0 % (4-6) H 03/11/19 Unknown Calcium 10.9 mg/dL (8.4-10.2) H 03/12/19 05:24 Magnesium 2.70 mg/dL (1.7-2.3) H 03/11/19 18:23 Magnesium 2.70 mg/dL (1.7-2.3) H 03/11/19 18:23 62 units/L (55-170) 03/11/19 18:23 42 units/L (13-60) 03/11/19 18:23 Blood Type O POSITIVE 03/11/19 18:23 Antibody Screen Negative 03/11/19 18:23 Active Medications - Current Medications Current Medications: Generic Name Dose Route Start Last Admin Trade Name Chery PRN Reason Stop Dose Admin Acetaminophen 650 mg 03/11/19 19:41 Tylenol PO Q4H PRN Pain MILD(1-3)/Fever >100.5/RUIZ Dextrose 50 ml 03/11/19 19:44 D50w (25gm) Syringe IV PRN PRN Hypoglycemia Pantoprazole Sodium 80 mg/ 100 mls @ 10 mls/hr 03/11/19 20:00 03/12/19 07:34 Sodium Chloride IV 8 mg/hr DIRECT WINSTON 10 mls/hr Administration 8 MG/HR Sodium Chloride 100 mls @ 999 mls/hr 03/12/19 09:11 Nacl 0.9% IV MANINDER PRN Hypotension Sodium Chloride 1,000 mls @ 50 mls/hr 03/12/19 13:00 Nacl 0.9% 1000 Ml IV DIRECT WINSTON Insulin Human Regular 0 units 03/12/19 00:00 03/12/19 13:04 Humulin R SUB-Q 3 units Q6HR WINSTON Administration Protocol Ondansetron HCl 4 mg 03/11/19 19:41 Zofran IV Q8H PRN Nausea And Vomiting Sodium Chloride 10 ml 03/11/19 22:00 03/11/19 21:59 Sodium Chloride Flush Syringe 10 Ml IV 10 ml BID WINSTON Administration Sodium Chloride 10 ml 03/11/19 19:41 Sodium Chloride Flush Syringe 10 Ml IV PRN PRN LINE FLUSH
[2019-03-12] MEDS ORDERED: XYLOCAINE MPF 2% ONE (15:00)
[2019-03-12] MEDS ORDERED: DIPRIVAN 10 MG/ML IV ONE ×2 (15:44)
[2019-03-12] MEDS ORDERED: VERSED ONE (15:51)
[2019-03-12] MEDS ORDERED: SUBLIMAZE ONE (15:51)
[2019-03-12] MEDS ORDERED: ADRENALIN INTRAOSSEO ONE (15:59)
[2019-03-12] MEDS ORDERED: ADRENALIN ONE (15:59)
[2019-03-12] MEDS ORDERED: ADRENALINE P/F ONE (16:00)
--- NOTE | 2019-03-12 16:16 | Operative Report ---
Operative Report Operative Report: Date of procedure: 03/12/2019 Procedure: EGD Preprocedure diagnosis: melena, hematemesis, Post procedure diagnosis: gastric antral ulcers Endoscopist: Dr. Jaycob Moreno Anesthesia: Monitored anesthesia care per anesthesia department Medications: MAC, per anesthesia records Estimated blood loss: minimal After careful discussion of the nature and purpose of the procedure as well as details the technique risks benefits and alternatives consent was obtained. The patient was placed in the left lateral decubitus position and medicated per anesthesia. The tip of the Olympus video scope was passed per orum under direct vision into the esophagus and advanced into the stomach and descending duodenum. The descending duodenum the duodenal bulb and pylorus were symmetrical and normal. The scope was withdrawn into the stomach and the stomach then gently insufflated with air. The antrum showed two nonbleeding ulcers. One larger ulcer about 1 cm showed a red spot. A mixture of epinephrine 1:10,000 was injected around the ulcer and red spot treated with gold probe. The stomach was further insufflated and the scope was then retroflexed and partially withdrawn. The cardia, fundus, and body of the stomach were examined and showed gastritis in the upper body but no other findings for bleeding. The scope was then withdrawn in the forward position. The esophagogastric junction was at 45 cm. The esophageal body was normal throughout. The procedure was was well tolerated and the patient was observed in recovery. Impressions: 1. Two nonbleeding gastric antral ulcer. One of them had a red spot and treated with epinephrine injection and gold probe. 2. Gastritis in the gastric body. 3. No signs of active bleeding. Plan: 1. Resume clear liquid diet. 2. Monitor H/H serially and for signs of recurrent bleeding. 3. Continue with PPI IV. 4. Will follow. Electronically signed: Jaycob Moreno MD
[2019-03-12] MEDS ORDERED: NACL 0.9% 1000 ML 1,000 ML IV SCH (18:00)
--- NOTE | 2019-03-12 20:46 | Consultation ---
History of Present Illness - Reason for Consult Consult date: 03/12/19 end stage renal disease, hyperkalemia - History of Present Illness Mr. Hays is a 63yo with ESRD on HD MWF who presented to the ED w/ c/o hemetemesis. He reports that he was in usual state of health until yesterday when he began experiencing abominal pain, hemetemesis and dark stools. He reports over the past 4-5 days, he has been taking Ibuprofen 800mg (two at a time) for stump pain. He denies SOB. He reports generalized weakness. Past History Past Medical History: diabetes (DM2), ESRD (on HD M/W/F), hypertension, other Past Surgical History: appendectomy, tonsillectomy, Other (left BKA). denies: total hip replacement (neuropathy) Social history: Family history: no significant family history Medications and Allergies Allergies Allergy/AdvReac Type Severity Reaction Status Date / Time No Known Allergies Allergy Verified 02/09/17 17:59 Home Medications Medication Instructions Recorded Confirmed Last Taken Type amLODIPine [Norvasc] 10 mg PO DAILY #30 tablet 02/14/17 03/11/19 Unknown Rx B Complex W-C No.20/Folic Acid 1 mg PO QDAY 03/11/19 03/11/19 Unknown History [Virt-Caps Softgel] Calcium Acetate [Phoslo] 667 mg PO TID 03/11/19 03/11/19 Unknown History Furosemide [Lasix TAB] 80 mg PO QAM 03/11/19 03/11/19 Unknown History Sevelamer Carbonate [Renvela] 800 mg PO TIDWM 03/11/19 03/11/19 Unknown History cloNIDine [Catapres] 0.1 mg PO TID 03/11/19 03/11/19 Unknown History Active Meds: Active Medications Acetaminophen (Tylenol) 650 mg PO Q4H PRN PRN Reason: Pain MILD(1-3)/Fever >100.5/RUIZ Dextrose (D50w (25gm) Syringe) 50 ml IV PRN PRN PRN Reason: Hypoglycemia Pantoprazole Sodium 80 mg/ (Sodium Chloride) 100 mls @ 10 mls/hr IV DIRECT WINSTON Last Admin: 03/12/19 07:34 Dose: 8 mg/hr, 10 mls/hr Documented by: Sodium Chloride (Nacl 0.9%) 100 mls @ 999 mls/hr IV MANINDER PRN PRN Reason: Hypotension Sodium Chloride (Nacl 0.9% 1000 Ml) 1,000 mls @ 50 mls/hr IV DIRECT WINSTON Sodium Chloride (Nacl 0.9% 1000 Ml) 1,000 mls @ 50 mls/hr IV DIRECT WINSTON Insulin Human Regular (Humulin R) 0 units SUB-Q Q6HR WINSTON; Protocol Last Admin: 03/12/19 18:39 Dose: 3 units Documented by: Ondansetron HCl (Zofran) 4 mg IV Q8H PRN PRN Reason: Nausea And Vomiting Sodium Chloride (Sodium Chloride Flush Syringe 10 Ml) 10 ml IV BID WINSTON Last Admin: 03/11/19 21:59 Dose: 10 ml Documented by: Sodium Chloride (Sodium Chloride Flush Syringe 10 Ml) 10 ml IV PRN PRN PRN Reason: LINE FLUSH Review of Systems All systems: negative Exam - Vital Signs Vital signs: Vital Signs Pulse Resp Pulse Ox 89 18 100 03/11/19 17:38 03/11/19 17:38 03/11/19 17:38 - General Appearance General appearance: well-developed, well-nourished EENT: ATNC Respiratory: Clear to Ascultation Heart: regular, S1S2 Gastrointestinal: Absent: tenderness Integumentary: no rash, warm and dry Neurologic: no focal deficit, alert and oriented x3 Musculoskeletal: Present: other (Left BKA) Psychiatric: mood/affect appropriate, cooperative Results - Lab Results 03/12/19 05:24 03/12/19 05:24 Most recent lab results Calcium 10.9 mg/dL (8.4-10.2) H 03/12/19 05:24 Magnesium 2.70 mg/dL (1.7-2.3) H 03/11/19 18:23 Magnesium 2.70 mg/dL (1.7-2.3) H 03/11/19 18:23 Assessment and Plan Impression: * End stage renal disease * GI bleed * Anemia secondary to ABL * Hyperkalemia * Hypertension Plan: * Hemodiaysis today; continue outpatient MWF schedule * UF as tolerated * Transfuse pRBC prn * GI consultation pending * Diet per GI
[2019-03-12 21:44] LABS: Hepatitis C Virus Antibody Non-Reactive (NonReactive)
[2019-03-12 22:20] LABS: Hepatitis B Surface Antigen Nonreactive (Negative)
[2019-03-12] MEDS: SODIUM CHLORIDE FLUSH SYRINGE 10 ML IV SCH (22:51)
[2019-03-12] MEDS: NACL 0.9% 1000 ML 1,000 ML IV SCH (22:52)
[2019-03-12 23:54] LABS: Hematocrit 20.3 % (35.5-45.6); Hemoglobin 7.1 gm/dl (11.8-15.2)
[2019-03-13] MEDS: HumuLIN R SUB-Q SCH ×3 (06:00→18:14)
--- NOTE | 2019-03-13 09:19 | Progress Note ---
Assessment and Plan Assessment and plan: Patient is 63-year-old -[place]og[place] man who is a Jehovah Witness with a history of ESRD on HD M/W/, DM2 with neuropathy, HTN and left BKA who presents to [facility] ED with nausea, vomiting, hematemesis, and dark bloody stools. CXR did not show any acute cardiopulmonary abnormalities. He was found to be anemic with hemoglobin of 9.3. Acute GI hemorrhage, with drop in HCT: EGD done and revealed gastric ulcers, treated with Epiephrine injection, continue PPI, GI is following, advance diet per GI Gastric Ulcers s/p epi: treat with PPI ESRD on HD M/W/F: Nephrology consulted, input noted Acute on chronic Anemia: monitor H/H closely, possibly EPO with Hemodialysis Hyperkalemia: need HD, monitor BMP closely Mild hyponatremia, resolved HTN stable: monitor sodium intake Right foot ( 2nd and 4th toe) wound: wound care consulted, 2nd right toe looks like dry gangrene Jehovah Witness, refuses blood transfusion. possibly transfer out of ICU if H/H stable I ordered stat CBC and BMP, called lab and spoke with Kristen Anderson, and she will call someone to come History Interval history: Patient was seen and examined. Follow-up on current diagnosis AGIB. No overnight events reported to me. Patient denies any chest pain, shortness breath, or severe headaches. Imaging, nursing note, chart, labs and old chart reviewed. Discussed with patient. at bedside. Hospitalist Physical - Physical exam Narrative exam: Gen: WDWN, NAD, Awake, Alert, Orientated HEENT: NCAT, EOMI, PERRL, OP Clear Neck: supple, no adenopathy, no thyromegaly, no JVD CVS/Heart: RRR, normal S1S2, pulses present bilaterally Chest/Lungs: CTA B, Symmetrical chest expansion, good air entry bilaterally GI/Abdomen: soft, NTND, good bowel sounds, no guarding or rebound /Bladder: no suprapubic tenderness, no CVA or paraspinal tenderness Extermity/Skin: no c/c/e, no obvious rash MSK: FROM x 4 Neuro: CN 2-12 grossly intact, no new focal deficits Psych: calm - Constitutional Vitals: Temp Pulse Resp BP Pulse Ox 98.2 F 88 14 128/51 99 07/04/19 08:00 03/13/19 08:00 03/13/19 08:00 03/13/19 08:00 03/13/19 08:00 Results - Labs CBC & Chem 7: 03/12/19 23:25 03/12/19 05:24 Labs: Laboratory Last Values WBC 6.7 K/mm3 (4.5-11.0) 03/12/19 05:24 RBC 2.57 M/mm3 (3.65-5.03) L 03/12/19 05:24 Hgb 7.1 gm/dl (11.8-15.2) L 03/12/19 23:25 Hct 20.3 % (35.5-45.6) L 03/12/19 23:25 MCV 89 fl (84-94) 03/12/19 05:24 MCH 30 pg (28-32) 03/12/19 05:24 MCHC 34 % (32-34) 03/12/19 05:24 RDW 16.0 % (13.2-15.2) H 03/12/19 05:24 Plt Count 138 K/mm3 (140-440) L 03/12/19 05:24 Lymph % (Auto) 13.0 % (13.4-35.0) L 03/12/19 05:24 [place] % (Auto) 13.4 % (0.0-7.3) H 03/12/19 05:24 Eos % (Auto) 0.4 % (0.0-4.3) 03/12/19 05:24 Baso % (Auto) 0.2 % (0.0-1.8) 03/12/19 05:24 Lymph # 0.9 K/mm3 (1.2-5.4) L 03/12/19 05:24 [place] # 0.9 K/mm3 (0.0-0.8) H 03/12/19 05:24 Eos # 0.0 K/mm3 (0.0-0.4) 03/12/19 05:24 Baso # 0.0 K/mm3 (0.0-0.1) 03/12/19 05:24 Seg Neutrophils % 73.0 % (40.0-70.0) H 03/12/19 05:24 Seg Neutrophils # 4.9 K/mm3 (1.8-7.7) 03/12/19 05:24 PT 14.9 Sec. (12.2-14.9) 03/11/19 18:23 INR 1.20 (0.87-1.13) H 03/11/19 18:23 Sodium 140 mmol/L (137-145) 03/12/19 05:24 Potassium 5.4 mmol/L (3.6-5.0) H 03/12/19 05:24 Chloride 95.4 mmol/L (98-107) L 03/12/19 05:24 Carbon Dioxide 24 mmol/L (22-30) 03/12/19 05:24 26 mmol/L 03/12/19 05:24 BUN 90 mg/dL (9-20) H 03/12/19 05:24 12.6 mg/dL (0.8-1.5) H 03/12/19 05:24 Estimated GFR 5 ml/min 03/12/19 05:24 7 % 03/12/19 05:24 Glucose 180 mg/dL (75-100) H 03/12/19 05:24 POC Glucose 155 (70-105) H 03/13/19 06:47 8.0 % (4-6) H 03/11/19 Unknown Calcium 10.9 mg/dL (8.4-10.2) H 03/12/19 05:24 Magnesium 2.70 mg/dL (1.7-2.3) H 03/11/19 18:23 Magnesium 2.70 mg/dL (1.7-2.3) H 03/11/19 18:23 62 units/L (55-170) 03/11/19 18:23 42 units/L (13-60) 03/11/19 18:23 Hepatitis A IgM Ab Non-reactive (NonReactive) 03/12/19 20:07 Hep Bs Antigen Non-reactive (Negative) 03/12/19 20:07 Hep Bs Antigen Nonreactive (Negative) 03/12/19 20:07 Hep B Core IgM Ab Non-reactive (NonReactive) 03/12/19 20:07 Non-reactive (NonReactive) 03/12/19 20:07 Non-reactive (NonReactive) 03/12/19 20:07 Blood Type O POSITIVE 03/11/19 18:23 Antibody Screen Negative 03/11/19 18:23 Active Medications - Current Medications Current Medications: Generic Name Dose Route Start Last Admin Trade Name Gavinq PRN Reason Stop Dose Admin Acetaminophen 650 mg 03/11/19 19:41 Tylenol PO Q4H PRN Pain MILD(1-3)/Fever >100.5/RUIZ Dextrose 50 ml 03/11/19 19:44 D50w (25gm) Syringe IV PRN PRN Hypoglycemia Pantoprazole Sodium 80 mg/ 100 mls @ 10 mls/hr 03/11/19 20:00 03/12/19 22:50 Sodium Chloride IV 8 mg/hr DIRECT WINSTON 10 mls/hr Administration 8 MG/HR Sodium Chloride 100 mls @ 999 mls/hr 03/12/19 09:11 Nacl 0.9% IV MANINDER PRN Hypotension Sodium Chloride 1,000 mls @ 50 mls/hr 03/12/19 13:00 03/12/19 22:52 Nacl 0.9% 1000 Ml IV 50 mls/hr DIRECT WINSTON Administration Sodium Chloride 1,000 mls @ 50 mls/hr 03/12/19 18:00 Nacl 0.9% 1000 Ml IV DIRECT WINSTON Insulin Human Regular 0 units 03/12/19 00:00 03/13/19 06:00 Humulin R SUB-Q 2 units Q6HR WINSTON Administration Protocol Ondansetron HCl 4 mg 03/11/19 19:41 Zofran IV Q8H PRN Nausea And Vomiting Sodium Chloride 10 ml 03/11/19 22:00 03/12/19 22:51 Sodium Chloride Flush Syringe 10 Ml IV 10 ml BID WINSTON Administration Sodium Chloride 10 ml 03/11/19 19:41 Sodium Chloride Flush Syringe 10 Ml IV PRN PRN LINE FLUSH
[2019-03-13] MEDS: PROTONIX 80 MG in NACL 0.9% 100 ML IV SCH ×2 (10:06→23:01)
[2019-03-13] MEDS: SODIUM CHLORIDE FLUSH SYRINGE 10 ML IV SCH ×2 (10:06→21:35)
[2019-03-13] MEDS ORDERED: NACL 0.9% 100 ML IV PRN (11:32)
[2019-03-13] MEDS ORDERED: FERRLECIT 250 MG in NACL 0.9% 100 ML IV ONE (11:33)
--- NOTE | 2019-03-13 11:34 | Progress Note ---
Subjective Interval history: Patient was seen today for follow-up on multiple renal related issues Events of this hospitalization noted His his ear at the bedside Patient is a Jehovah witness He was taking ibuprofen in outpatient setting resulting in GI bleed Patient denies having any chest pain pressure or shortness of breath Vitals labs intake output medications were reviewed Social history: Reviewed Allergies: Reviewed Family history: Reviewed Physical examination HEENT: Oral mucosa moist no pallor or icterus Neck: Supple no JVD Chest: Clear to auscultation anteriorly CVS: Regular rate and rhythm S1 and S2 heard Abdomen: Soft nontender no suprapubic masses no organomegaly appreciable Extremity: Dry skin less than 1+ peripheral edema Musculoskeletal: No joint effusion noted in knees and ankle Status post amputation one leg Neurological: Alert awake Dermatology: No petechial rashes Psychiatry: No evidence of any agitation and aggression noted Assessment and plan; End-stage renal disease: Patient will continue with hemodialysis on Sunday and Sunday schedule while here, 3 hour 45 minutes Patient was adequately [place] educated regarding dialysis time Peptic ulcer disease: Patient needs to avoid any binders such as Renvela or Renagel altogether He was taking ibuprofen and instructed him to avoid NSAIDs altogether Secondary hyperparathyroidism: Monitor phosphorus and PTH level Anemia: Patient is a Jehovah witness, complicated by GI bleed Secondary hyperparathyroidism periodically check phosphorus and PTH level, goal phosphorus less than 5.5 PTH less than 600, educated about renal osteodystrophy Hypertension and volume: , Adjust medications as needed, ultrafiltration as tolerated keep systolic blood pressure above 100 Malnutrition risk: High please consider high protein diet as well as nutrition follow-up, patient needs at least 1.5 g protein per KG body weight Dialysis access: Currently working well, discussed about monitoring Dietary counseling and education: Done at length to improve outcome with end- stage renal disease Patient was also educated about the hospital related comorbidities Overall prognosis appears to be guarded due to end-stage renal disease, dialysis status and other comorbidities Patient was adequately counseled and educated regarding multiple renal related issues Pertinent lab findings were discussed with patient and patient does exhibit good understanding of renal issues. We'll continue to follow and make recommendation from renal standpoint Objective - Vital Signs Vital signs: Vital Signs - 12hr 03/12/19 03/13/19 03/13/19 23:46 00:00 00:16 Temperature 98.2 F Pulse Rate 85 77 75 Respiratory 20 Rate Blood Pressure 117/44 130/48 130/48 O2 Sat by Pulse 98 96 95 Oximetry 03/13/19 03/13/19 03/13/19 00:18 00:30 00:46 Temperature Pulse Rate 76 75 76 Respiratory Rate Blood Pressure 130/48 116/43 116/43 O2 Sat by Pulse 96 96 96 Oximetry 03/13/19 03/13/19 03/13/19 01:00 01:16 01:30 Temperature Pulse Rate 74 86 78 Respiratory 14 Rate Blood Pressure 114/41 114/41 121/51 O2 Sat by Pulse 97 98 99 Oximetry 03/13/19 03/13/19 03/13/19 01:46 02:00 02:16 Temperature Pulse Rate 82 81 80 Respiratory 14 19 17 Rate Blood Pressure 121/51 125/46 125/46 O2 Sat by Pulse 98 97 96 Oximetry 03/13/19 03/13/19 03/13/19 02:30 02:46 03:00 Temperature Pulse Rate 86 80 80 Respiratory 14 15 22 Rate Blood Pressure 122/54 125/46 121/47 O2 Sat by Pulse 96 95 97 Oximetry 03/13/19 03/13/19 03/13/19 03:16 03:30 03:46 Temperature Pulse Rate 79 91 H 78 Respiratory 19 9 L 22 Rate Blood Pressure 122/54 115/52 121/47 O2 Sat by Pulse 96 96 93 Oximetry 03/13/19 03/13/19 03/13/19 04:00 04:16 04:30 Temperature 98.7 F Pulse Rate 84 85 84 Respiratory 17 12 8 L Rate Blood Pressure 107/36 107/36 122/49 O2 Sat by Pulse 96 95 98 Oximetry 03/13/19 03/13/19 03/13/19 04:46 05:00 05:16 Temperature Pulse Rate 86 88 87 Respiratory 13 15 12 Rate Blood Pressure 107/36 107/36 122/49 O2 Sat by Pulse 97 98 98 Oximetry 03/13/19 03/13/19 03/13/19 05:30 05:46 06:00 Temperature Pulse Rate 86 86 88 Respiratory 17 13 13 Rate Blood Pressure 122/50 122/50 122/50 O2 Sat by Pulse 95 96 99 Oximetry 03/13/19 03/13/19 03/13/19 07:00 08:00 09:00 Temperature 98.2 F Pulse Rate 88 86 Respiratory 13 12 Rate Blood Pressure 137/63 128/51 113/59 O2 Sat by Pulse 95 97 98 Oximetry 03/13/19 03/13/19 10:00 11:00 Temperature Pulse Rate 85 84 Respiratory 10 L 20 Rate Blood Pressure 120/86 133/50 O2 Sat by Pulse 98 97 Oximetry - Lab 03/15/19 04:33 03/15/19 04:33 Most recent lab results Calcium 10.9 mg/dL (8.4-10.2) H 03/12/19 05:24 Magnesium 2.70 mg/dL (1.7-2.3) H 03/11/19 18:23 Magnesium 2.70 mg/dL (1.7-2.3) H 03/11/19 18:23 Medications & Allergies - Medications Allergies/Adverse Reactions: Allergies No Known Allergies Allergy (Verified 02/09/17 17:59) Home Medications: Home Medications Medication Instructions Recorded Confirmed Last Taken Type amLODIPine [Norvasc] 10 mg PO DAILY #30 tablet 02/14/17 03/11/19 Unknown Rx B Complex W-C No.20/Folic Acid 1 mg PO QDAY 03/11/19 03/11/19 Unknown History [Virt-Caps Softgel] Calcium Acetate [Phoslo] 667 mg PO TID 03/11/19 03/11/19 Unknown History Furosemide [Lasix TAB] 80 mg PO QAM 03/11/19 03/11/19 Unknown History Sevelamer Carbonate [Renvela] 800 mg PO TIDWM 03/11/19 03/11/19 Unknown History cloNIDine [Catapres] 0.1 mg PO TID 03/11/19 03/11/19 Unknown History Active Medications: Generic Name Dose Route Start Last Admin Trade Name Freq PRN Reason Stop Dose Admin Acetaminophen 650 mg 03/11/19 19:41 Tylenol PO Q4H PRN Pain MILD(1-3)/Fever >100.5/RUIZ Dextrose 50 ml 03/11/19 19:44 D50w (25gm) Syringe IV PRN PRN Hypoglycemia Pantoprazole Sodium 80 mg/ 100 mls @ 10 mls/hr 03/11/19 20:00 03/13/19 10:06 Sodium Chloride IV 8 mg/hr DIRECT WINSTON 10 mls/hr Administration 8 MG/HR Sodium Chloride 100 mls @ 999 mls/hr 03/12/19 09:11 Nacl 0.9% IV MANINDER PRN Hypotension Sodium Chloride 1,000 mls @ 50 mls/hr 03/12/19 13:00 03/12/19 22:52 Nacl 0.9% 1000 Ml IV 50 mls/hr DIRECT WINSTON Administration Sodium Chloride 1,000 mls @ 50 mls/hr 03/12/19 18:00 Nacl 0.9% 1000 Ml IV DIRECT WINSTON Insulin Human Regular 0 units 03/12/19 00:00 03/13/19 06:00 Humulin R SUB-Q 2 units Q6HR WINSTON Administration Protocol Ondansetron HCl 4 mg 03/11/19 19:41 Zofran IV Q8H PRN Nausea And Vomiting Sodium Chloride 10 ml 03/11/19 22:00 03/13/19 10:06 Sodium Chloride Flush Syringe 10 Ml IV 10 ml BID WINSTON Administration Sodium Chloride 10 ml 03/11/19 19:41 Sodium Chloride Flush Syringe 10 Ml IV PRN PRN LINE FLUSH
[2019-03-13] MEDS ORDERED: PROCRIT IV ONE ×2 (12:00)
[2019-03-13] MEDS ORDERED: PROCRIT SUB-Q ONE ×2 (12:00)
[2019-03-13 13:22] LABS: Hemoglobin 6.2 gm/dl (11.8-15.2); Mean Corpuscular HGB Conc 34 % (32-34); Mean Corpuscular Volume 88 fl (84-94); Platelet Count 104 K/mm3 (140-440); Red Blood Count 2.07 M/mm3 (3.65-5.03); Red Cell Distribution Width 16.2 % (13.2-15.2)
[2019-03-13 13:27] LABS: Hematocrit 18.2 % (35.5-45.6)
[2019-03-13 13:35] LABS: Calcium 9.2 mg/dL (8.4-10.2)
--- NOTE | 2019-03-13 18:00 | Progress Note ---
Assessment and Plan 1. Anemia - acute blood loss, due to PUD. Pt has underlying chronic anemia, with baseline Hgb from 8-9, likely contributed to by ESRD. Hgb today down to 6.2, likely dilutional. No evidence of active ongoing GI bleed. - please note that pt is a [employer] - continue PPI - adv diet in AM - if H/H stable in AM, can D/C home - if H/H declines further, may need Hematology input for EPO and IV iron 2. PUD - due to NSAIDs. S/p EGD/cautery for stigmata. - continue PPI Subjective Date of service: 03/13/19 Interval history: Pt feels great. No BMs. No abd pain, N/V. No GI bleed. Objective - Constitutional Vitals: Vital Signs - 12hr 03/13/19 03/13/19 03/13/19 06:00 07:00 08:00 Temperature 98.2 F Pulse Rate 88 88 Respiratory 13 13 Rate Blood Pressure 122/50 137/63 128/51 O2 Sat by Pulse 99 95 97 Oximetry 03/13/19 03/13/19 03/13/19 09:00 10:00 11:00 Temperature Pulse Rate 86 85 84 Respiratory 12 10 L 20 Rate Blood Pressure 113/59 120/86 133/50 O2 Sat by Pulse 98 98 97 Oximetry 03/13/19 03/13/19 03/13/19 12:00 13:00 14:00 Temperature 98.7 F Pulse Rate 87 81 82 Respiratory 15 12 12 Rate Blood Pressure 126/49 121/44 103/43 O2 Sat by Pulse 98 98 98 Oximetry 03/13/19 03/13/19 03/13/19 15:00 16:00 17:00 Temperature 98.4 F Pulse Rate 78 81 89 Respiratory 11 L 21 11 L Rate Blood Pressure 102/50 104/52 108/49 O2 Sat by Pulse 99 98 94 Oximetry General appearance: Present: no acute distress - EENT Eyes: PERRL, EOM intact ENT: hearing intact - Respiratory Respiratory effort: normal - Gastrointestinal General gastrointestinal: Present: soft, non-tender - Labs CBC & Chem 7: 03/13/19 12:59 03/13/19 12:59 Labs: Abnormal lab results 07/03/19 07/03/19 07/03/19 Range/Units 18:11 23:25 23:32 WBC (4.5-11.0) K/mm3 RBC (3.65-5.03) M/mm3 Hgb 7.1 L (11.8-15.2) gm/dl Hct 20.3 L (35.5-45.6) % RDW (13.2-15.2) % Plt Count (140-440) K/mm3 BUN (9-20) mg/dL Creatinine (0.8-1.5) mg/dL Glucose (75-100) mg/dL POC Glucose 220 H 260 H (70-105) 03/13/19 03/13/19 03/13/19 Range/Units 06:47 11:43 12:59 WBC 3.6 L (4.5-11.0) K/mm3 RBC 2.07 L (3.65-5.03) M/mm3 Hgb 6.2 L (11.8-15.2) gm/dl Hct 18.2 L* (35.5-45.6) % RDW 16.2 H (13.2-15.2) % Plt Count 104 L (140-440) K/mm3 BUN (9-20) mg/dL Creatinine (0.8-1.5) mg/dL Glucose (75-100) mg/dL POC Glucose 155 H 237 H (70-105) 03/13/19 03/13/19 Range/Units 12:59 17:09 WBC (4.5-11.0) K/mm3 RBC (3.65-5.03) M/mm3 Hgb (11.8-15.2) gm/dl Hct (35.5-45.6) % RDW (13.2-15.2) % Plt Count (140-440) K/mm3 BUN 51 H (9-20) mg/dL Creatinine 8.9 H (0.8-1.5) mg/dL Glucose 264 H (75-100) mg/dL POC Glucose 208 H (70-105) Medications & Allergies - Medications Allergies/Adverse Reactions: Allergies No Known Allergies Allergy (Verified 02/09/17 17:59) Home Medications: Home Medications Medication Instructions Recorded Confirmed Last Taken Type amLODIPine [Norvasc] 10 mg PO DAILY #30 tablet 02/14/17 03/11/19 Unknown Rx B Complex W-C No.20/Folic Acid 1 mg PO QDAY 03/11/19 03/11/19 Unknown History [Virt-Caps Softgel] Calcium Acetate [Phoslo] 667 mg PO TID 03/11/19 03/11/19 Unknown History Furosemide [Lasix TAB] 80 mg PO QAM 03/11/19 03/11/19 Unknown History Sevelamer Carbonate [Renvela] 800 mg PO TIDWM 03/11/19 03/11/19 Unknown History cloNIDine [Catapres] 0.1 mg PO TID 03/11/19 03/11/19 Unknown History Active Medications: Generic Name Dose Route Start Last Admin Trade Name Freq PRN Reason Stop Dose Admin Acetaminophen 650 mg 03/11/19 19:41 Tylenol PO Q4H PRN Pain MILD(1-3)/Fever >100.5/RUIZ Dextrose 50 ml 03/11/19 19:44 D50w (25gm) Syringe IV PRN PRN Hypoglycemia Pantoprazole Sodium 80 mg/ 100 mls @ 10 mls/hr 03/11/19 20:00 03/13/19 10:06 Sodium Chloride IV 8 mg/hr DIRECT WINSTON 10 mls/hr Administration 8 MG/HR Sodium Chloride 100 mls @ 999 mls/hr 03/12/19 09:11 Nacl 0.9% IV MANINDER PRN Hypotension Sodium Chloride 1,000 mls @ 50 mls/hr 03/12/19 13:00 03/12/19 22:52 Nacl 0.9% 1000 Ml IV 50 mls/hr DIRECT WINSTON Administration Sodium Chloride 1,000 mls @ 50 mls/hr 03/12/19 18:00 Nacl 0.9% 1000 Ml IV DIRECT WINSTON Sodium Chloride 100 mls @ 999 mls/hr 03/13/19 11:32 Nacl 0.9% IV MANINDER PRN Hypotension Insulin Human Regular 0 units 03/12/19 00:00 03/13/19 06:00 Humulin R SUB-Q 2 units Q6HR WINSTON Administration Protocol Ondansetron HCl 4 mg 03/11/19 19:41 Zofran IV Q8H PRN Nausea And Vomiting Sodium Chloride 10 ml 03/11/19 22:00 03/13/19 10:06 Sodium Chloride Flush Syringe 10 Ml IV 10 ml BID WINSTON Administration Sodium Chloride 10 ml 03/11/19 19:41 Sodium Chloride Flush Syringe 10 Ml IV PRN PRN LINE FLUSH
[2019-03-13] MEDS: NACL 0.9% 1000 ML 1,000 ML IV SCH (21:31)
[2019-03-13] MEDS ORDERED: NACL 0.9% 1000 ML 1,000 ML ONE (21:32)
[2019-03-13] MEDS ORDERED: NACL 0.9 (PRIMING MACHINE ONLY DIALYSIS) MC ONE (23:41)
[2019-03-14 05:51] LABS: Calcium 8.7 mg/dL (8.4-10.2)
[2019-03-14 06:00] LABS: Hemoglobin 6.3 gm/dl (11.8-15.2); Mean Corpuscular HGB Conc 33 % (32-34); Mean Corpuscular Volume 91 fl (84-94); Platelet Count 114 K/mm3 (140-440); Red Blood Count 2.13 M/mm3 (3.65-5.03); Red Cell Distribution Width 16.2 % (13.2-15.2)
[2019-03-14] MEDS ORDERED: NACL 0.9 (PRIMING MACHINE ONLY DIALYSIS) MC ONE (06:38)
[2019-03-14] MEDS: HumuLIN R SUB-Q SCH ×5 (06:40→21:54)
--- NOTE | 2019-03-14 07:51 | Progress Note ---
Assessment and Plan Assessment and plan: Patient is 63-year-old -[place] man who is a Jehovah Witness with a history of ESRD on HD M/W/, DM2 with neuropathy, HTN and left BKA who presents to [facility] ED with nausea, vomiting, hematemesis, and dark bloody stools. CXR did not show any acute cardiopulmonary abnormalities. He was found to be anemic with hemoglobin of 9.3. Drop in Hemoglobin from 9.3 on admission to 6.2, treated with iron infusion and EPO, now hemoglobin 6.3: continue to monitor h/h closely, consulted Heme/Onc Acute GI hemorrhage: EGD done and revealed gastric ulcers, treated with Epiephrine injection, continue PPI, GI is following, advance diet per GI Gastric Ulcers s/p epi: treat with PPI ESRD on HD M/W/F: Nephrology consulted, input noted Acute on chronic Anemia: monitor H/H closely, possibly EPO with Hemodialysis Hyperkalemia: need HD, monitor BMP closely Mild hyponatremia, resolved HTN stable: monitor sodium intake Decubitus ulcers, poa with Right 2nd and 3th toe, dry gangrene : wound care consulted, input noted Jehovah Witness, refuses blood transfusion. possibly transfer out of ICU History Interval history: Patient was seen and examined. Follow-up on current diagnosis AGIB. No overnight events reported to me. Patient denies any chest pain, shortness breath, or severe headaches. Imaging, nursing note, chart, labs and old chart reviewed. Discussed with patient. at bedside. Hospitalist Physical - Physical exam Narrative exam: Gen: WDWN, NAD, Awake, Alert, Orientated HEENT: NCAT, EOMI, PERRL, OP Clear Neck: supple, no adenopathy, no thyromegaly, no JVD CVS/Heart: RRR, normal S1S2, pulses present bilaterally Chest/Lungs: CTA B, Symmetrical chest expansion, good air entry bilaterally GI/Abdomen: soft, NTND, good bowel sounds, no guarding or rebound /Bladder: no suprapubic tenderness, no CVA or paraspinal tenderness Extermity/Skin: right 2nd and 3rd toe dry gangrene and dry pressure ulcer on left stump MSK: FROM x 3,s/p old left BKA Neuro: CN 2-12 grossly intact, no new focal deficits Psych: calm - Constitutional Vitals: Temp Pulse Resp BP Pulse Ox 99.3 F 84 15 144/60 97 03/14/19 04:00 03/14/19 07:00 03/14/19 07:00 03/14/19 07:00 03/14/19 07:00 General appearance: Present: no acute distress Results - Labs CBC & Chem 7: 03/14/19 04:35 03/14/19 04:35 Labs: Laboratory Last Values WBC 4.4 K/mm3 (4.5-11.0) L 03/14/19 04:35 RBC 2.13 M/mm3 (3.65-5.03) L 03/14/19 04:35 Hgb 6.3 gm/dl (11.8-15.2) L 03/14/19 04:35 Hct 18.2 % (35.5-45.6) L* 03/13/19 12:59 MCV 91 fl (84-94) 03/14/19 04:35 MCH 30 pg (28-32) 03/14/19 04:35 MCHC 33 % (32-34) 03/14/19 04:35 RDW 16.2 % (13.2-15.2) H 03/14/19 04:35 Plt Count 114 K/mm3 (140-440) L 03/14/19 04:35 Lymph % (Auto) 13.0 % (13.4-35.0) L 03/12/19 05:24 Barber % (Auto) 13.4 % (0.0-7.3) H 03/12/19 05:24 Eos % (Auto) 0.4 % (0.0-4.3) 03/12/19 05:24 Baso % (Auto) 0.2 % (0.0-1.8) 03/12/19 05:24 Lymph # 0.9 K/mm3 (1.2-5.4) L 03/12/19 05:24 Barber # 0.9 K/mm3 (0.0-0.8) H 03/12/19 05:24 Eos # 0.0 K/mm3 (0.0-0.4) 03/12/19 05:24 Baso # 0.0 K/mm3 (0.0-0.1) 03/12/19 05:24 Seg Neutrophils % 73.0 % (40.0-70.0) H 03/12/19 05:24 Seg Neutrophils # 4.9 K/mm3 (1.8-7.7) 03/12/19 05:24 PT 14.9 Sec. (12.2-14.9) 03/11/19 18:23 INR 1.20 (0.87-1.13) H 03/11/19 18:23 Sodium 138 mmol/L (137-145) 03/14/19 04:35 Potassium 4.6 mmol/L (3.6-5.0) 03/14/19 04:35 Chloride 102.4 mmol/L (98-107) 03/14/19 04:35 Carbon Dioxide 24 mmol/L (22-30) 03/14/19 04:35 16 mmol/L 03/14/19 04:35 BUN 34 mg/dL (9-20) H 03/14/19 04:35 8.1 mg/dL (0.8-1.5) H 03/14/19 04:35 Estimated GFR 8 ml/min 03/14/19 04:35 4 % 03/14/19 04:35 Glucose 101 mg/dL (75-100) H 03/14/19 04:35 POC Glucose 135 (70-105) H 03/14/19 06:25 8.0 % (4-6) H 03/11/19 Unknown Calcium 8.7 mg/dL (8.4-10.2) 03/14/19 04:35 Magnesium 2.70 mg/dL (1.7-2.3) H 03/11/19 18:23 Magnesium 2.70 mg/dL (1.7-2.3) H 03/11/19 18:23 62 units/L (55-170) 03/11/19 18:23 42 units/L (13-60) 03/11/19 18:23 Vitamin B12 886.3 pg/mL (211-911) 03/13/19 12:59 19.22 ng/mL (7.3-26.0) 03/13/19 12:59 Hepatitis A IgM Ab Non-reactive (NonReactive) 03/12/19 20:07 Hep Bs Antigen Non-reactive (Negative) 03/12/19 20:07 Hep Bs Antigen Nonreactive (Negative) 03/12/19 20:07 Hep B Core IgM Ab Non-reactive (NonReactive) 03/12/19 20:07 Non-reactive (NonReactive) 03/12/19 20:07 Non-reactive (NonReactive) 03/12/19 20:07 Blood Type O POSITIVE 03/11/19 18:23 Antibody Screen Negative 03/11/19 18:23 Active Medications - Current Medications Current Medications: Generic Name Dose Route Start Last Admin Trade Name Freq PRN Reason Stop Dose Admin Acetaminophen 650 mg 03/11/19 19:41 Tylenol PO Q4H PRN Pain MILD(1-3)/Fever >100.5/RUIZ Dextrose 50 ml 03/11/19 19:44 D50w (25gm) Syringe IV PRN PRN Hypoglycemia Pantoprazole Sodium 80 mg/ 100 mls @ 10 mls/hr 03/11/19 20:00 03/13/19 23:01 Sodium Chloride IV 8 mg/hr DIRECT WINSTON 10 mls/hr Administration 8 MG/HR Sodium Chloride 100 mls @ 999 mls/hr 03/12/19 09:11 Nacl 0.9% IV MANINDER PRN Hypotension Sodium Chloride 1,000 mls @ 50 mls/hr 03/12/19 13:00 03/13/19 21:31 Nacl 0.9% 1000 Ml IV 50 mls/hr DIRECT WINSTON Administration Sodium Chloride 1,000 mls @ 50 mls/hr 03/12/19 18:00 Nacl 0.9% 1000 Ml IV DIRECT WINSTON Sodium Chloride 100 mls @ 999 mls/hr 03/13/19 11:32 Nacl 0.9% IV MANINDER PRN Hypotension Insulin Human Regular 0 units 03/12/19 00:00 03/14/19 06:40 Humulin R SUB-Q Not Given Q6HR WINSTON Protocol Ondansetron HCl 4 mg 03/11/19 19:41 Zofran IV Q8H PRN Nausea And Vomiting Sodium Chloride 10 ml 03/11/19 22:00 03/13/19 21:35 Sodium Chloride Flush Syringe 10 Ml IV 10 ml BID WINSTON Administration Sodium Chloride 10 ml 03/11/19 19:41 Sodium Chloride Flush Syringe 10 Ml IV PRN PRN LINE FLUSH
[2019-03-14 08:02] LABS: Hematocrit 19.3 % (35.5-45.6)
[2019-03-14 09:02] LABS: Iron 59 ug/dL (49-181); Total Iron Binding Capacity 155 mcg/dL (250-450)
[2019-03-14 09:07] LABS: Anisocytosis 1+; Basophils % (Manual) 0 % (0.0-1.8); Total Cells Counted 100
[2019-03-14 09:08] LABS: Hypochromasia Few; Macrocytosis Few; Ovalocytes Few; Platelet Estimate Consistent w Auto
[2019-03-14 09:09] LABS: Large Platelets Few
[2019-03-14] MEDS: PROTONIX 80 MG in NACL 0.9% 100 ML IV SCH ×2 (09:39→19:30)
[2019-03-14] MEDS: SODIUM CHLORIDE FLUSH SYRINGE 10 ML IV SCH ×2 (09:39→21:50)
--- NOTE | 2019-03-14 10:20 | Gastroenterology Progress Note ---
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- risks discussed with patient with understanding confirmed -no active signs of bleeding overnight or this am-currently HD stable -s/p EGD that showed two non-bleeding gastric antral ulcer (one with red spot- treated with epi and gold probe), and gastritis -advance diet to GI soft -continue PPI -avoid NSAIDs -continue supportive care -hematology consult pending for recommendations on anemia (input for EPO and iv iron) -patient will need to be d/c on PPI with f/u in clinic -no further GI recommendations at this time -will sign off, please call if needed Subjective Date of service: 03/14/19 Principal diagnosis: GI bleed Interval history: Patient resting in bed w/o acute distress and at bedside. No active signs of bleeding overnight or this am. Denies abd pain or N/V. Tolerating clears. Requesting to eat solid food. Reports last BM yesterday was with brown stool. Objective - Constitutional Vitals: Temp Pulse Resp BP Pulse Ox 98.6 F 84 11 L 144/54 98 03/14/19 08:00 03/14/19 09:00 03/14/19 09:00 03/14/19 09:00 03/14/19 09:00 General appearance: no acute distress - Respiratory Respiratory effort: normal - Cardiovascular Rhythm: regular - Gastrointestinal General gastrointestinal: Present: soft, non-tender, non-distended, normal bowel sounds - Neurologic Neurological: alert and oriented x3 - Labs CBC & Chem 7: 03/14/19 04:35 03/14/19 04:35 Labs: Laboratory Results - last 24 hr 03/12/19 03/13/19 03/13/19 23:32 11:43 12:59 WBC 3.6 L RBC 2.07 L Hgb 6.2 L Hct 18.2 L* MCV 88 MCH 30 MCHC 34 RDW 16.2 H Plt Count 104 L Total Counted Seg Neuts % (Manual) Band Neutrophils % Lymphocytes % (Manual) Reactive Lymphs % (Man) Monocytes % (Manual) Eosinophils % (Manual) Basophils % (Manual) Metamyelocytes % Myelocytes % Promyelocytes % Blast Cells % Nucleated RBC % Seg Neutrophils # Man Band Neutrophils # Lymphocytes # (Manual) Abs React Lymphs (Man) Monocytes # (Manual) Eosinophils # (Manual) Basophils # (Manual) Metamyelocytes # Myelocytes # Promyelocytes # Blast Cells # WBC Morphology Hypersegmented Neuts Hyposegmented Neuts Hypogranular Neuts Smudge Cells Toxic Granulation Toxic Vacuolation Dohle Bodies Pelger-Huet Anomaly Adolfo Rods Platelet Estimate Clumped Platelets Plt Clumps, EDTA Large Platelets Giant Platelets Platelet Satelliting Plt Morphology Comment RBC Morphology Dimorphic RBCs Polychromasia Hypochromasia Poikilocytosis Anisocytosis Microcytosis Macrocytosis Spherocytes Pappenheimer Bodies Sickle Cells Target Cells Tear Drop Cells Ovalocytes Helmet Cells [place] Bodies [place] Rings Hilary Cells Bite Cells Crenated Cell Elliptocytes Acanthocytes (Spur) Rouleaux Hemoglobin C Crystals Schistocytes Malaria parasites Yohannes Bodies Hem Pathologist Commnt Sodium Potassium Chloride Carbon Dioxide Anion Gap BUN Creatinine Estimated GFR BUN/Creatinine Ratio Glucose POC Glucose 260 H 237 H Calcium Iron TIBC Ferritin Vitamin B12 Folate 03/13/19 03/13/19 03/13/19 12:59 12:59 12:59 WBC RBC Hgb Hct MCV MCH MCHC RDW Plt Count Total Counted Seg Neuts % (Manual) Band Neutrophils % Lymphocytes % (Manual) Reactive Lymphs % (Man) Monocytes % (Manual) Eosinophils % (Manual) Basophils % (Manual) Metamyelocytes % Myelocytes % Promyelocytes % Blast Cells % Nucleated RBC % Seg Neutrophils # Man Band Neutrophils # Lymphocytes # (Manual) Abs React Lymphs (Man) Monocytes # (Manual) Eosinophils # (Manual) Basophils # (Manual) Metamyelocytes # Myelocytes # Promyelocytes # Blast Cells # WBC Morphology Hypersegmented Neuts Hyposegmented Neuts Hypogranular Neuts Smudge Cells Toxic Granulation Toxic Vacuolation Dohle Bodies Pelger-Huet Anomaly Adolfo Rods Platelet Estimate Clumped Platelets Plt Clumps, EDTA Large Platelets Giant Platelets Platelet Satelliting Plt Morphology Comment RBC Morphology Dimorphic RBCs Polychromasia Hypochromasia Poikilocytosis Anisocytosis Microcytosis Macrocytosis Spherocytes Pappenheimer Bodies Sickle Cells Target Cells Tear Drop Cells Ovalocytes Helmet Cells [place] Bodies [place] Rings [place] Cells Bite Cells Crenated Cell Elliptocytes Acanthocytes (Spur) Rouleaux Hemoglobin C Crystals Schistocytes Malaria parasites Yohannes Bodies Hem Pathologist Commnt Sodium 138 Potassium 4.4 Chloride 98.9 Carbon Dioxide 26 Anion Gap 18 BUN 51 H Creatinine 8.9 H Estimated GFR 7 BUN/Creatinine Ratio 6 Glucose 264 H POC Glucose Calcium 9.2 D Iron TIBC Ferritin Vitamin B12 886.3 Folate 19.22 03/13/19 03/13/19 03/14/19 17:09 23:30 04:32 WBC RBC Hgb Hct MCV MCH MCHC RDW Plt Count Total Counted Seg Neuts % (Manual) Band Neutrophils % Lymphocytes % (Manual) Reactive Lymphs % (Man) Monocytes % (Manual) Eosinophils % (Manual) Basophils % (Manual) Metamyelocytes % Myelocytes % Promyelocytes % Blast Cells % Nucleated RBC % Seg Neutrophils # Man Band Neutrophils # Lymphocytes # (Manual) Abs React Lymphs (Man) Monocytes # (Manual) Eosinophils # (Manual) Basophils # (Manual) Metamyelocytes # Myelocytes # Promyelocytes # Blast Cells # WBC Morphology Hypersegmented Neuts Hyposegmented Neuts Hypogranular Neuts Smudge Cells Toxic Granulation Toxic Vacuolation Dohle Bodies Pelger-Huet Anomaly Adolfo Rods Platelet Estimate Clumped Platelets Plt Clumps, EDTA Large Platelets Giant Platelets Platelet Satelliting Plt Morphology Comment RBC Morphology Dimorphic RBCs Polychromasia Hypochromasia Poikilocytosis Anisocytosis Microcytosis Macrocytosis Spherocytes Pappenheimer Bodies Sickle Cells Target Cells Tear Drop Cells Ovalocytes Helmet Cells [place] Bodies [place] Rings [place] Cells Bite Cells Crenated Cell Elliptocytes Acanthocytes (Spur) Rouleaux Hemoglobin C Crystals Schistocytes Malaria parasites Yohannes Bodies Hem Pathologist Commnt Sodium Potassium Chloride Carbon Dioxide Anion Gap BUN Creatinine Estimated GFR BUN/Creatinine Ratio Glucose POC Glucose 208 H 99 Calcium Iron 59 TIBC 155 L Ferritin Vitamin B12 Folate 03/14/19 03/14/19 03/14/19 04:35 04:35 04:35 WBC 4.4 L RBC 2.13 L Hgb 6.3 L Hct 19.3 L* MCV 91 MCH 30 MCHC 33 RDW 16.2 H Plt Count 114 L Total Counted 100 Seg Neuts % (Manual) 70.0 Band Neutrophils % 0 Lymphocytes % (Manual) 13.0 L Reactive Lymphs % (Man) 0 Monocytes % (Manual) 9.0 H Eosinophils % (Manual) 8.0 H Basophils % (Manual) 0 Metamyelocytes % 0 Myelocytes % 0 Promyelocytes % 0 Blast Cells % 0 Nucleated RBC % Not Reportable Seg Neutrophils # Man 0.0 L Band Neutrophils # 0.0 Lymphocytes # (Manual) 0.0 L Abs React Lymphs (Man) 0.0 Monocytes # (Manual) 0.0 Eosinophils # (Manual) 0.0 Basophils # (Manual) 0.0 Metamyelocytes # 0.0 Myelocytes # 0.0 Promyelocytes # 0.0 Blast Cells # 0.0 WBC Morphology Not Reportable Hypersegmented Neuts Not Reportable Hyposegmented Neuts Not Reportable Hypogranular Neuts Not Reportable Smudge Cells Not Reportable Toxic Granulation Not Reportable Toxic Vacuolation Not Reportable Dohle Bodies Not Reportable Pelger-Huet Anomaly Not Reportable Adolfo Rods Not Reportable Platelet Estimate Consistent w auto Clumped Platelets Not Reportable Plt Clumps, EDTA Not Reportable Large Platelets Few Giant Platelets Not Reportable Platelet Satelliting Not Reportable Plt Morphology Comment Not Reportable RBC Morphology Not Reportable Dimorphic RBCs Not Reportable Polychromasia Not Reportable Hypochromasia Few Poikilocytosis Not Reportable Anisocytosis 1+ Microcytosis 1+ Macrocytosis Few Spherocytes Not Reportable Pappenheimer Bodies Not Reportable Sickle Cells Not Reportable Target Cells Not Reportable Tear Drop Cells Not Reportable Ovalocytes Few Helmet Cells Not Reportable Cast[place] Bodies Not Reportable [place] Rings Not Reportable Hilary Cells Not Reportable Bite Cells Not Reportable Crenated Cell Not Reportable Elliptocytes Not Reportable Acanthocytes (Spur) Not Reportable Rouleaux Not Reportable Hemoglobin C Crystals Not Reportable Schistocytes Not Reportable Malaria parasites Not Reportable Yohannes Bodies Not Reportable Hem Pathologist Commnt No Sodium 138 Potassium 4.6 Chloride 102.4 Carbon Dioxide 24 Anion Gap 16 BUN 34 H Creatinine 8.1 H Estimated GFR 8 BUN/Creatinine Ratio 4 Glucose 101 H POC Glucose Calcium 8.7 Iron TIBC Ferritin Vitamin B12 Folate 03/14/19 03/14/19 06:25 08:45 WBC RBC Hgb Hct MCV MCH MCHC RDW Plt Count Total Counted Seg Neuts % (Manual) Band Neutrophils % Lymphocytes % (Manual) Reactive Lymphs % (Man) Monocytes % (Manual) Eosinophils % (Manual) Basophils % (Manual) Metamyelocytes % Myelocytes % Promyelocytes % Blast Cells % Nucleated RBC % Seg Neutrophils # Man Band Neutrophils # Lymphocytes # (Manual) Abs React Lymphs (Man) Monocytes # (Manual) Eosinophils # (Manual) Basophils # (Manual) Metamyelocytes # Myelocytes # Promyelocytes # Blast Cells # WBC Morphology Hypersegmented Neuts Hyposegmented Neuts Hypogranular Neuts Smudge Cells Toxic Granulation Toxic Vacuolation Dohle Bodies Pelger-Huet Anomaly Adolfo Rods Platelet Estimate Clumped Platelets Plt Clumps, EDTA Large Platelets Giant Platelets Platelet Satelliting Plt Morphology Comment RBC Morphology Dimorphic RBCs Polychromasia Hypochromasia Poikilocytosis Anisocytosis Microcytosis Macrocytosis Spherocytes Pappenheimer Bodies Sickle Cells Target Cells Tear Drop Cells Ovalocytes Helmet Cells [place] Bodies [place] Rings [place] Cells Bite Cells Crenated Cell Elliptocytes Acanthocytes (Spur) Rouleaux Hemoglobin C Crystals Schistocytes Malaria parasites Yohannes Bodies Hem Pathologist Commnt Sodium Potassium Chloride Carbon Dioxide Anion Gap BUN Creatinine Estimated GFR BUN/Creatinine Ratio Glucose POC Glucose 135 H Calcium Iron TIBC Ferritin 563.3 H Vitamin B12 Folate
--- NOTE | 2019-03-14 11:24 | Progress Note ---
Assessment and Plan Impression: * End stage renal disease * GI bleed * Anemia secondary to ABL * Hyperkalemia * Hypertension Plan: * Hemodiaysis per outpatient MWF schedule * UF as tolerated * GI recommendations noted * Diet per GI * Dose medications from a renal standpoint * Epogen TIW prn - he is s/p 40k unit subcut injection yesterday Subjective Date of service: 03/14/19 Principal diagnosis: GI bleed Interval history: Patient has no complaints. Objective - Vital Signs Vital signs: Vital Signs - 12hr 03/14/19 03/14/19 03/14/19 00:00 01:00 02:00 Temperature 99.4 F Pulse Rate 94 H 85 Respiratory 14 19 Rate Blood Pressure 143/64 132/72 115/48 O2 Sat by Pulse 96 100 96 Oximetry 03/14/19 03/14/19 03/14/19 03:00 04:00 05:00 Temperature 99.3 F Pulse Rate 84 80 85 Respiratory 13 13 24 Rate Blood Pressure 123/48 109/41 109/41 O2 Sat by Pulse 98 96 100 Oximetry 03/14/19 03/14/19 03/14/19 06:00 07:00 08:00 Temperature 98.6 F Pulse Rate 79 84 73 Respiratory 14 15 12 Rate Blood Pressure 144/60 117/40 O2 Sat by Pulse 98 97 96 Oximetry 03/14/19 03/14/19 03/14/19 09:00 10:00 11:00 Temperature Pulse Rate 84 92 H 81 Respiratory 11 L 20 17 Rate Blood Pressure 144/54 144/54 146/54 O2 Sat by Pulse 98 99 98 Oximetry - General Appearance General appearance: well-developed, well-nourished EENT: ATNC Respiratory: Present: Clear to Ascultation Cardiology: regular, S1S2 Gastrointestinal: normal, no tenderness, no distended Integumentary: no rash, warm and dry Musculoskeletal: other (no edema) Psychiatric: cooperative - Lab 03/14/19 04:35 03/14/19 04:35 Most recent lab results Calcium 8.7 mg/dL (8.4-10.2) 03/14/19 04:35 Magnesium 2.70 mg/dL (1.7-2.3) H 03/11/19 18:23 Magnesium 2.70 mg/dL (1.7-2.3) H 03/11/19 18:23 Medications & Allergies - Medications Allergies/Adverse Reactions: Allergies No Known Allergies Allergy (Verified 02/09/17 17:59) Home Medications: Home Medications Medication Instructions Recorded Confirmed Last Taken Type amLODIPine [Norvasc] 10 mg PO DAILY #30 tablet 02/14/17 03/11/19 Unknown Rx B Complex W-C No.20/Folic Acid 1 mg PO QDAY 03/11/19 03/11/19 Unknown History [Virt-Caps Softgel] Calcium Acetate [Phoslo] 667 mg PO TID 03/11/19 03/11/19 Unknown History Furosemide [Lasix TAB] 80 mg PO QAM 03/11/19 03/11/19 Unknown History Sevelamer Carbonate [Renvela] 800 mg PO TIDWM 03/11/19 03/11/19 Unknown History cloNIDine [Catapres] 0.1 mg PO TID 03/11/19 03/11/19 Unknown History Active Medications: Generic Name Dose Route Start Last Admin Trade Name Freq PRN Reason Stop Dose Admin Acetaminophen 650 mg 03/11/19 19:41 Tylenol PO Q4H PRN Pain MILD(1-3)/Fever >100.5/RUIZ Dextrose 50 ml 03/11/19 19:44 D50w (25gm) Syringe IV PRN PRN Hypoglycemia Pantoprazole Sodium 80 mg/ 100 mls @ 10 mls/hr 03/11/19 20:00 03/14/19 09:39 Sodium Chloride IV 8 mg/hr DIRECT WINSTON 10 mls/hr Administration 8 MG/HR Sodium Chloride 100 mls @ 999 mls/hr 03/12/19 09:11 Nacl 0.9% IV MANINDER PRN Hypotension Sodium Chloride 1,000 mls @ 50 mls/hr 03/12/19 13:00 03/13/19 21:31 Nacl 0.9% 1000 Ml IV 50 mls/hr DIRECT WINSTON Administration Sodium Chloride 1,000 mls @ 50 mls/hr 03/12/19 18:00 Nacl 0.9% 1000 Ml IV DIRECT WINSTON Sodium Chloride 100 mls @ 999 mls/hr 03/13/19 11:32 Nacl 0.9% IV MANINDER PRN Hypotension Insulin Human Regular 0 units 03/14/19 11:30 Humulin R SUB-Q ACHS WINSTON Protocol Ondansetron HCl 4 mg 03/11/19 19:41 Zofran IV Q8H PRN Nausea And Vomiting Sodium Chloride 10 ml 03/11/19 22:00 03/14/19 09:39 Sodium Chloride Flush Syringe 10 Ml IV 10 ml BID WINSTON Administration Sodium Chloride 10 ml 03/11/19 19:41 Sodium Chloride Flush Syringe 10 Ml IV PRN PRN LINE FLUSH
--- NOTE | 2019-03-14 19:34 | Event Note ---
Date: 03/14/19 [id number]
[2019-03-14] MEDS: NACL 0.9% 1000 ML 1,000 ML IV SCH (21:50)
--- NOTE | 2019-03-15 04:52 | Consultation ---
REFERRED BY: Dr. Johnson REASON FOR CONSULTATION: Anemia, renal impairment, thrombocytopenia. HISTORY OF PRESENT ILLNESS: I saw the patient, a 63-year-old -Filipino male in the medical floor. The patient has a history of end-stage renal disease. The patient has been on dialysis since 04/2018. He has dialysis on Sunday, Sunday, and Sunday. He has diabetes, high blood pressure, left below knee amputation, came to the hospital because of nausea, vomiting, hematemesis and dark stools. He has been having nausea for a few days. The patient thinks that this is secondary to a nonsteroidal which he took. He had hematemesis and dark stools. He received dialysis. He stopped it because as he developed other symptoms and he came to the hospital. Later, I spoke to Dr. Hui who mentioned that iron infusions have been given to him. I have been asked to evaluate the patient in view of the anemia, thrombocytopenia and normal MCV. PAST MEDICAL HISTORY: Diabetes, end-stage renal disease, hypertension. PAST SURGICAL HISTORY: Appendix surgery, tonsil surgery, left BKA. SOCIAL HISTORY: . FAMILY HISTORY: Not contributory. ALLERGIES: None. HOME MEDICATIONS: Include amlodipine, calcium, Lasix, clonidine. PHYSICAL EXAMINATION: VITAL SIGNS: Temperature 98, pulse 85, respirations 15, BP 129/64. HEENT: Pallor present. No icterus. NECK: No neck lymph nodes. HEART: S1, S2. LUNGS: Clear to auscultation anteriorly. ABDOMEN: Soft. EXTREMITIES: No calf tenderness. The patient has dialysis catheter in chest. NEUROLOGIC: Alert, awake, oriented. LABORATORY DATA: White cell 4.4, hemoglobin 6.3, MCV 91, platelet 114. On smear, no blasts are seen; microcytosis and hypochromasia. No platelet clumping. Potassium 4.6, creatinine 8.1. Serum iron 59, ferritin 563, B12 800, folate 19. RADIOLOGY: Chest x-ray was done. ASSESSMENT AND PLAN: 1. Normocytic anemia. The patient while on dialysis, usually gets erythropoietin support and iron with dialysis because of history of hematemesis. Iron has already been given. 2. The patient's platelet counts are also low. This needs to be pursued. This may be a marrow issue. 3. End-stage renal disease, on dialysis. 4. Gastrointestinal bleed. 5. Electrolyte issue. 6. History of hypertension. 7. History of below knee amputation. 8. The patient is Buddhism and refuses transfusion support. Desmopressin has been given for platelet dysfunction and end-stage renal disease. 9. The patient took nonsteroidal medication. 10. Smear evaluation shows microcytosis. I will follow the patient during inpatient stay. I will liaise with other physicians. The patient is on dialysis, usually gets Epogen and IV iron with dialysis. JOB# [id number] NM/NTS
[2019-03-15 05:01] LABS: Hemoglobin 6.2 gm/dl (11.8-15.2); Mean Corpuscular HGB Conc 35 % (32-34); Mean Corpuscular Volume 89 fl (84-94); Platelet Count 104 K/mm3 (140-440); Red Cell Distribution Width 16.8 % (13.2-15.2)
[2019-03-15 05:05] LABS: Hematocrit 17.9 % (35.5-45.6)
[2019-03-15 06:01] LABS: Albumin 3.2 g/dL (3.9-5); Calcium 8.6 mg/dL (8.4-10.2)
[2019-03-15] MEDS: PROTONIX 80 MG in NACL 0.9% 100 ML IV SCH ×2 (06:19→17:27)
--- NOTE | 2019-03-15 07:13 | Hem/Onc Progress Note ---
Assessment and Plan 1. Normocytic anemia. The patient while on dialysis, usually gets erythropoietin support and iron with dialysis because of history of hematemesis. Iron has already been given. 2. The patient's platelet counts are also low. This needs to be pursued. This may be a marrow issue. 3. End-stage renal disease, on dialysis. 4. Gastrointestinal bleed. 5. Electrolyte issue. 6. History of hypertension. 7. History of below knee amputation. 8. The patient is Anglican and refuses transfusion support. Desmopressin has been given for platelet dysfunction and end-stage renal disease. 9. The patient took nonsteroidal medication. 10. Smear evaluation shows microcytosis. I will follow the patient during inpatient stay. I will liaise with other physicians. The patient is on dialysis, usually gets Epogen and IV iron with dialysis. - Patient Problems (1) Anemia Current Visit: Yes Status: Acute Subjective Date of service: 03/15/19 Principal diagnosis: anemia - low plt Interval history: low hb Objective - Exam Narrative Exam: Pain - none General appearance no acute distress Performance status limited self care Eyes - no icterus ENT no thrush LNs cervical not palpable Neck - normal ROM Respiratory Normal Breath sounds - CTA CVS S1 S2 + Extremities normal temperature General GI Soft Rectal deferred male - deferred Skin warm Musculoskeletal moving normal Neurologically no focal deficit - Constitutional Vitals: Last Vital Signs Temp 98.5 F 03/15/19 03:25 Pulse 118 H 03/15/19 03:00 Resp 13 03/15/19 03:00 BP 126/60 03/15/19 03:00 Pulse Ox 97 03/15/19 03:00 - Labs Lab Results: Laboratory Results - last 24 hr 03/14/19 03/14/19 03/14/19 04:32 04:35 04:35 WBC 4.4 L RBC 2.13 L Hgb 6.3 L Hct 19.3 L* MCV 91 MCH 30 MCHC 33 RDW 16.2 H Plt Count 114 L Total Counted 100 Seg Neuts % (Manual) 70.0 Band Neutrophils % 0 Lymphocytes % (Manual) 13.0 L Reactive Lymphs % (Man) 0 Monocytes % (Manual) 9.0 H Eosinophils % (Manual) 8.0 H Basophils % (Manual) 0 Metamyelocytes % 0 Myelocytes % 0 Promyelocytes % 0 Blast Cells % 0 Nucleated RBC % Not Reportable Seg Neutrophils # Man 0.0 L Band Neutrophils # 0.0 Lymphocytes # (Manual) 0.0 L Abs React Lymphs (Man) 0.0 Monocytes # (Manual) 0.0 Eosinophils # (Manual) 0.0 Basophils # (Manual) 0.0 Metamyelocytes # 0.0 Myelocytes # 0.0 Promyelocytes # 0.0 Blast Cells # 0.0 Pathologist Review WBC Morphology Not Reportable Hypersegmented Neuts Not Reportable Hyposegmented Neuts Not Reportable Hypogranular Neuts Not Reportable Smudge Cells Not Reportable Toxic Granulation Not Reportable Toxic Vacuolation Not Reportable Dohle Bodies Not Reportable Pelger-Huet Anomaly Not Reportable Adolfo Rods Not Reportable Platelet Estimate Consistent w auto Clumped Platelets Not Reportable Plt Clumps, EDTA Not Reportable Large Platelets Few Giant Platelets Not Reportable Platelet Satelliting Not Reportable Plt Morphology Comment Not Reportable RBC Morphology Not Reportable Dimorphic RBCs Not Reportable Polychromasia Not Reportable Hypochromasia Few Poikilocytosis Not Reportable Anisocytosis 1+ Microcytosis 1+ Macrocytosis Few Spherocytes Not Reportable Pappenheimer Bodies Not Reportable Sickle Cells Not Reportable Target Cells Not Reportable Tear Drop Cells Not Reportable Ovalocytes Few Helmet Cells Not Reportable Castañeda-Cannon Afb Bodies Not Reportable Ten Sleep Rings Not Reportable [place] Cells Not Reportable Bite Cells Not Reportable Crenated Cell Not Reportable Elliptocytes Not Reportable Acanthocytes (Spur) Not Reportable Rouleaux Not Reportable Hemoglobin C Crystals Not Reportable Schistocytes Not Reportable Malaria parasites Not Reportable Yohannes Bodies Not Reportable Hem Pathologist Commnt No Sodium Potassium Chloride Carbon Dioxide Anion Gap BUN Creatinine Estimated GFR BUN/Creatinine Ratio Glucose POC Glucose Calcium Iron 59 TIBC 155 L Ferritin Total Bilirubin AST ALT Alkaline Phosphatase Total Protein Albumin Albumin/Globulin Ratio 03/14/19 03/14/19 03/14/19 08:45 11:50 16:16 WBC RBC Hgb Hct MCV MCH MCHC RDW Plt Count Total Counted Seg Neuts % (Manual) Band Neutrophils % Lymphocytes % (Manual) Reactive Lymphs % (Man) Monocytes % (Manual) Eosinophils % (Manual) Basophils % (Manual) Metamyelocytes % Myelocytes % Promyelocytes % Blast Cells % Nucleated RBC % Seg Neutrophils # Man Band Neutrophils # Lymphocytes # (Manual) Abs React Lymphs (Man) Monocytes # (Manual) Eosinophils # (Manual) Basophils # (Manual) Metamyelocytes # Myelocytes # Promyelocytes # Blast Cells # Pathologist Review WBC Morphology Hypersegmented Neuts Hyposegmented Neuts Hypogranular Neuts Smudge Cells Toxic Granulation Toxic Vacuolation Dohle Bodies Pelger-Huet Anomaly Adolfo Rods Platelet Estimate Clumped Platelets Plt Clumps, EDTA Large Platelets Giant Platelets Platelet Satelliting Plt Morphology Comment RBC Morphology Dimorphic RBCs Polychromasia Hypochromasia Poikilocytosis Anisocytosis Microcytosis Macrocytosis Spherocytes Pappenheimer Bodies Sickle Cells Target Cells Tear Drop Cells Ovalocytes Helmet Cells Castañeda-Cannon Afb Bodies Ten Sleep Rings [place] Cells Bite Cells Crenated Cell Elliptocytes Acanthocytes (Spur) Rouleaux Hemoglobin C Crystals Schistocytes Malaria parasites Yohannes Bodies Hem Pathologist Commnt Sodium Potassium Chloride Carbon Dioxide Anion Gap BUN Creatinine Estimated GFR BUN/Creatinine Ratio Glucose POC Glucose 259 H 301 H Calcium Iron TIBC Ferritin 563.3 H Total Bilirubin AST ALT Alkaline Phosphatase Total Protein Albumin Albumin/Globulin Ratio 03/14/19 03/15/19 03/15/19 21:31 04:33 04:33 WBC 3.6 L RBC 2.00 L Hgb 6.2 L Hct 17.9 L* MCV 89 MCH 31 MCHC 35 H RDW 16.8 H Plt Count 104 L Total Counted Seg Neuts % (Manual) Band Neutrophils % Lymphocytes % (Manual) Reactive Lymphs % (Man) Monocytes % (Manual) Eosinophils % (Manual) Basophils % (Manual) Metamyelocytes % Myelocytes % Promyelocytes % Blast Cells % Nucleated RBC % Seg Neutrophils # Man Band Neutrophils # Lymphocytes # (Manual) Abs React Lymphs (Man) Monocytes # (Manual) Eosinophils # (Manual) Basophils # (Manual) Metamyelocytes # Myelocytes # Promyelocytes # Blast Cells # Pathologist Review WBC Morphology Hypersegmented Neuts Hyposegmented Neuts Hypogranular Neuts Smudge Cells Toxic Granulation Toxic Vacuolation Dohle Bodies Pelger-Huet Anomaly Adolfo Rods Platelet Estimate Clumped Platelets Plt Clumps, EDTA Large Platelets Giant Platelets Platelet Satelliting Plt Morphology Comment RBC Morphology Dimorphic RBCs Polychromasia Hypochromasia Poikilocytosis Anisocytosis Microcytosis Macrocytosis Spherocytes Pappenheimer Bodies Sickle Cells Target Cells Tear Drop Cells Ovalocytes Helmet Cells Castañeda-Cannon Afb Bodies Ten Sleep Rings Hilary Cells Bite Cells Crenated Cell Elliptocytes Acanthocytes (Spur) Rouleaux Hemoglobin C Crystals Schistocytes Malaria parasites Yohannes Bodies Hem Pathologist Commnt Sodium 136 L Potassium 4.7 Chloride 100.5 Carbon Dioxide 25 Anion Gap 15 BUN 40 H Creatinine 10.5 H Estimated GFR 6 BUN/Creatinine Ratio 4 Glucose 186 H POC Glucose 130 H Calcium 8.6 Iron TIBC Ferritin Total Bilirubin 0.30 AST 40 ALT 22 Alkaline Phosphatase 69 Total Protein 6.1 L Albumin 3.2 L Albumin/Globulin Ratio 1.1 Medications & Allergies - Medications Allergies/Adverse Reactions: Allergies No Known Allergies Allergy (Verified 02/09/17 17:59) Home Medications: Home Medications Medication Instructions Recorded Confirmed Last Taken Type amLODIPine [Norvasc] 10 mg PO DAILY #30 tablet 02/14/17 03/11/19 Unknown Rx B Complex W-C No.20/Folic Acid 1 mg PO QDAY 03/11/19 03/11/19 Unknown History [Virt-Caps Softgel] Calcium Acetate [Phoslo] 667 mg PO TID 03/11/19 03/11/19 Unknown History Furosemide [Lasix TAB] 80 mg PO QAM 03/11/19 03/11/19 Unknown History Sevelamer Carbonate [Renvela] 800 mg PO TIDWM 03/11/19 03/11/19 Unknown History cloNIDine [Catapres] 0.1 mg PO TID 03/11/19 03/11/19 Unknown History Active Medications: Generic Name Dose Route Start Last Admin Trade Name Chery PRN Reason Stop Dose Admin Acetaminophen 650 mg 03/11/19 19:41 Tylenol PO Q4H PRN Pain MILD(1-3)/Fever >100.5/RUIZ Dextrose 50 ml 03/11/19 19:44 D50w (25gm) Syringe IV PRN PRN Hypoglycemia Pantoprazole Sodium 80 mg/ 100 mls @ 10 mls/hr 03/11/19 20:00 03/15/19 06:19 Sodium Chloride IV 8 mg/hr DIRECT WINST[place] 10 mls/hr Administration 8 MG/HR Sodium Chloride 100 mls @ 999 mls/hr 03/12/19 09:11 Nacl 0.9% IV MANINDER PRN Hypotension Sodium Chloride 1,000 mls @ 50 mls/hr 03/12/19 13:00 03/14/19 21:50 Nacl 0.9% 1000 Ml IV 50 mls/hr DIRECT W[place] Administration Sodium Chloride 1,000 mls @ 50 mls/hr 03/12/19 18:00 Nacl 0.9% 1000 Ml IV DIRECT WINST[place] Sodium Chloride 100 mls @ 999 mls/hr 03/13/19 11:32 Nacl 0.9% IV MANINDER PRN Hypotension Insulin Human Regular 0 units 03/14/19 11:30 03/14/19 21:54 Humulin R SUB-Q Not Given ACHS [facility] Protocol Ondansetron HCl 4 mg 03/11/19 19:41 Zofran IV Q8H PRN Nausea And Vomiting Sodium Chloride 10 ml 03/11/19 22:00 03/14/19 21:50 Sodium Chloride Flush Syringe 10 Ml IV 10 ml BID [place] Administration Sodium Chloride 10 ml 03/11/19 19:41 Sodium Chloride Flush Syringe 10 Ml IV PRN PRN LINE FLUSH
[2019-03-15] MEDS: HumuLIN R SUB-Q SCH ×4 (08:30→22:30)
--- NOTE | 2019-03-15 10:01 | Progress Note ---
Subjective Principal diagnosis: GI bleed Interval history: Patient was seen today for follow-up on multiple renal related issues Events of this hospitalization noted His his ear at the bedside Patient is a Jehovah witness He was taking ibuprofen in outpatient setting resulting in GI bleed Patient denies having any chest pain pressure or shortness of breath Vitals labs intake output medications were reviewed Social history: Reviewed Allergies: Reviewed Family history: Reviewed Physical examination HEENT: Oral mucosa moist no pallor or icterus Neck: Supple no JVD Chest: Clear to auscultation anteriorly CVS: Regular rate and rhythm S1 and S2 heard Abdomen: Soft nontender no suprapubic masses no organomegaly appreciable Extremity: Dry skin less than 1+ peripheral edema Musculoskeletal: No joint effusion noted in knees and ankle Status post amputation one leg Neurological: Alert awake Dermatology: No petechial rashes Psychiatry: No evidence of any agitation and aggression noted Assessment and plan; End-stage renal disease: Patient will continue with hemodialysis on Sunday and Sunday schedule while here, 3 hour 45 minutes Anemia: Currently being followed by hematology oncology Patient is a [employer] was taking nonsteroidal drugs resulting in bleeding Adequately counseled and educated regarding all the renal related issues Noted to have peptic ulcer disease, GI to follow We'll continue to follow and make recommendation from renal standpoint Objective - Vital Signs Vital signs: Vital Signs - 12hr 03/14/19 03/14/19 03/15/19 23:00 23:15 00:00 Temperature 99.8 F H Pulse Rate 83 Pulse Rate [ 89 From Monitor] Respiratory 17 13 Rate Blood Pressure 122/63 110/29 O2 Sat by Pulse 98 99 Oximetry 03/15/19 03/15/19 03/15/19 01:00 02:01 03:00 Temperature Pulse Rate 81 118 H Pulse Rate [ From Monitor] Respiratory 25 H 11 L 13 Rate Blood Pressure 134/51 139/59 126/60 O2 Sat by Pulse 97 99 97 Oximetry 03/15/19 03/15/19 03/15/19 03:25 04:00 05:00 Temperature 98.5 F Pulse Rate 76 67 Pulse Rate [ 70 From Monitor] Respiratory 16 Rate Blood Pressure 122/44 137/64 O2 Sat by Pulse 95 97 Oximetry 03/15/19 03/15/19 06:00 07:00 Temperature Pulse Rate Pulse Rate [ From Monitor] Respiratory Rate Blood Pressure 114/47 127/62 O2 Sat by Pulse 95 100 Oximetry - Lab 03/15/19 04:33 03/15/19 04:33 Most recent lab results Calcium 8.6 mg/dL (8.4-10.2) 03/15/19 04:33 Magnesium 2.70 mg/dL (1.7-2.3) H 03/11/19 18:23 Magnesium 2.70 mg/dL (1.7-2.3) H 03/11/19 18:23 Medications & Allergies - Medications Allergies/Adverse Reactions: Allergies No Known Allergies Allergy (Verified 02/09/17 17:59) Home Medications: Home Medications Medication Instructions Recorded Confirmed Last Taken Type amLODIPine [Norvasc] 10 mg PO DAILY #30 tablet 02/14/17 03/11/19 Unknown Rx B Complex W-C No.20/Folic Acid 1 mg PO QDAY 03/11/19 03/11/19 Unknown History [Virt-Caps Softgel] Calcium Acetate [Phoslo] 667 mg PO TID 03/11/19 03/11/19 Unknown History Furosemide [Lasix TAB] 80 mg PO QAM 03/11/19 03/11/19 Unknown History Sevelamer Carbonate [Renvela] 800 mg PO TIDWM 03/11/19 03/11/19 Unknown History cloNIDine [Catapres] 0.1 mg PO TID 03/11/19 03/11/19 Unknown History Active Medications: Generic Name Dose Route Start Last Admin Trade Name Freq PRN Reason Stop Dose Admin Acetaminophen 650 mg 03/11/19 19:41 Tylenol PO Q4H PRN Pain MILD(1-3)/Fever >100.5/RUIZ Dextrose 50 ml 03/11/19 19:44 D50w (25gm) Syringe IV PRN PRN Hypoglycemia Pantoprazole Sodium 80 mg/ 100 mls @ 10 mls/hr 03/11/19 20:00 03/15/19 06:19 Sodium Chloride IV 8 mg/hr DIRECT W[place] 10 mls/hr Administration 8 MG/HR Sodium Chloride 100 mls @ 999 mls/hr 03/12/19 09:11 Nacl 0.9% IV MANINDER PRN Hypotension Sodium Chloride 1,000 mls @ 50 mls/hr 03/12/19 13:00 03/14/19 21:50 Nacl 0.9% 1000 Ml IV 50 mls/hr DIRECT W[place] Administration Sodium Chloride 1,000 mls @ 50 mls/hr 03/12/19 18:00 Nacl 0.9% 1000 Ml IV DIRECT W[place] Sodium Chloride 100 mls @ 999 mls/hr 03/13/19 11:32 Nacl 0.9% IV MANINDER PRN Hypotension Insulin Human Regular 0 units 03/14/19 11:30 03/14/19 21:54 Humulin R SUB-Q Not Given ACHS [facility] Protocol Ondansetron HCl 4 mg 03/11/19 19:41 Zofran IV Q8H PRN Nausea And Vomiting Sodium Chloride 10 ml 03/11/19 22:00 03/14/19 21:50 Sodium Chloride Flush Syringe 10 Ml IV 10 ml BID [place] Administration Sodium Chloride 10 ml 03/11/19 19:41 Sodium Chloride Flush Syringe 10 Ml IV PRN PRN LINE FLUSH
--- NOTE | 2019-03-15 10:10 | Progress Note ---
Assessment and Plan Assessment and plan: Patient is 63-year-old -[place]aced[place] man who is a Jehovah Witness with a history of ESRD on HD M/W/, DM2 with neuropathy, HTN and left BKA who presents to [facility] ED with nausea, vomiting, hematemesis, and dark bloody stools. CXR did not show any acute cardiopulmonary abnormalities. He was found to be anemic with hemoglobin of 9.3. Drop in Hemoglobin from 9.3 on admission to 6.2, treated with iron infusion and EPO: continue to monitor h/h closely, consulted Heme/Onc Acute GI hemorrhage: EGD done and revealed gastric ulcers, treated with Epiephri ne injection, continue PPI, GI is following, advance diet per GI Gastric Ulcers s/p epi: treat with PPI ESRD on HD M/W/F: Nephrology consulted, input noted Acute on chronic Anemia: monitor H/H closely, possibly EPO with Hemodialysis Hyperkalemia: need HD, monitor BMP closely Mild hyponatremia, resolved HTN stable: monitor sodium intake Decubitus ulcers, poa with Right 2nd and 3th toe, dry gangrene : wound care consulted, input noted Jehovah Witness, refuses blood transfusion. History Interval history: Patient was seen and examined. Follow-up on current diagnosis AGIB. No overnight events reported to me. Patient denies any chest pain, shortness breath, or severe headaches. Imaging, nursing note, chart, labs and old chart reviewed. Discussed with patient. at bedside. Hospitalist Physical - Physical exam Narrative exam: Gen: WDWN, NAD, Awake, Alert, Orientated HEENT: NCAT, EOMI, PERRL, OP Clear Neck: supple, no adenopathy, no thyromegaly, no JVD CVS/Heart: RRR, normal S1S2, pulses present bilaterally Chest/Lungs: CTA B, Symmetrical chest expansion, good air entry bilaterally GI/Abdomen: soft, NTND, good bowel sounds, no guarding or rebound /Bladder: no suprapubic tenderness, no CVA or paraspinal tenderness Extermity/Skin: right 2nd and 3rd toe dry gangrene and dry pressure ulcer on left stump MSK: FROM x 3,s/p old left BKA Neuro: CN 2-12 grossly intact, no new focal deficits Psych: calm - Constitutional Vitals: Temp Pulse Resp BP Pulse Ox 98.5 F 67 16 127/62 100 03/15/19 03:25 03/15/19 05:00 03/15/19 04:00 03/15/19 07:00 03/15/19 07:00 General appearance: Present: no acute distress Results - Labs CBC & Chem 7: 03/15/19 04:33 03/15/19 04:33 Labs: Laboratory Last Values WBC 3.6 K/mm3 (4.5-11.0) L 03/15/19 04:33 RBC 2.00 M/mm3 (3.65-5.03) L 03/15/19 04:33 Hgb 6.2 gm/dl (11.8-15.2) L 03/15/19 04:33 Hct 17.9 % (35.5-45.6) L* 03/15/19 04:33 MCV 89 fl (84-94) 03/15/19 04:33 MCH 31 pg (28-32) 03/15/19 04:33 MCHC 35 % (32-34) H 03/15/19 04:33 RDW 16.8 % (13.2-15.2) H 03/15/19 04:33 Plt Count 104 K/mm3 (140-440) L 03/15/19 04:33 Lymph % (Auto) 13.0 % (13.4-35.0) L 03/12/19 05:24 Rankin % (Auto) 13.4 % (0.0-7.3) H 03/12/19 05:24 Eos % (Auto) 0.4 % (0.0-4.3) 03/12/19 05:24 Baso % (Auto) 0.2 % (0.0-1.8) 03/12/19 05:24 Lymph # 0.9 K/mm3 (1.2-5.4) L 03/12/19 05:24 Rankin # 0.9 K/mm3 (0.0-0.8) H 03/12/19 05:24 Eos # 0.0 K/mm3 (0.0-0.4) 03/12/19 05:24 Baso # 0.0 K/mm3 (0.0-0.1) 03/12/19 05:24 Total Counted 100 03/14/19 04:35 Seg Neutrophils % 73.0 % (40.0-70.0) H 03/12/19 05:24 Seg Neuts % (Manual) 70.0 % (40.0-70.0) 03/14/19 04:35 0 % 03/14/19 04:35 13.0 % (13.4-35.0) L 03/14/19 04:35 Reactive Lymphs % (Man) 0 % 03/14/19 04:35 9.0 % (0.0-7.3) H 03/14/19 04:35 8.0 % (0.0-4.3) H 03/14/19 04:35 0 % (0.0-1.8) 03/14/19 04:35 0 % 03/14/19 04:35 0 % 03/14/19 04:35 0 % 03/14/19 04:35 0 % 03/14/19 04:35 Nucleated RBC % Not Reportable 03/14/19 04:35 Seg Neutrophils # 4.9 K/mm3 (1.8-7.7) 03/12/19 05:24 Seg Neutrophils # Man 0.0 K/mm3 (1.8-7.7) L 03/14/19 04:35 Band Neutrophils # 0.0 K/mm3 03/14/19 04:35 0.0 K/mm3 (1.2-5.4) L 03/14/19 04:35 Abs React Lymphs (Man) 0.0 K/mm3 03/14/19 04:35 0.0 K/mm3 (0.0-0.8) 03/14/19 04:35 0.0 K/mm3 (0.0-0.4) 03/14/19 04:35 0.0 K/mm3 (0.0-0.1) 03/14/19 04:35 0.0 K/mm3 03/14/19 04:35 0.0 K/mm3 03/14/19 04:35 0.0 K/mm3 03/14/19 04:35 Blast Cells # 0.0 K/mm3 03/14/19 04:35 Pathologist Review 03/14/19 04:35 WBC Morphology Not Reportable 03/14/19 04:35 Hypersegmented Neuts Not Reportable 03/14/19 04:35 Hyposegmented Neuts Not Reportable 03/14/19 04:35 Hypogranular Neuts Not Reportable 03/14/19 04:35 Not Reportable 03/14/19 04:35 Not Reportable 03/14/19 04:35 Not Reportable 03/14/19 04:35 Not Reportable 03/14/19 04:35 Not Reportable 03/14/19 04:35 Not Reportable 03/14/19 04:35 Consistent w auto 03/14/19 04:35 Not Reportable 03/14/19 04:35 Plt Clumps, EDTA Not Reportable 03/14/19 04:35 Few 03/14/19 04:35 Not Reportable 03/14/19 04:35 Not Reportable 03/14/19 04:35 Plt Morphology Comment Not Reportable 03/14/19 04:35 RBC Morphology Not Reportable 03/14/19 04:35 Dimorphic RBCs Not Reportable 03/14/19 04:35 Not Reportable 03/14/19 04:35 Few 03/14/19 04:35 Not Reportable 03/14/19 04:35 1+ 03/14/19 04:35 1+ 03/14/19 04:35 Few 03/14/19 04:35 Not Reportable 03/14/19 04:35 Not Reportable 03/14/19 04:35 Not Reportable 03/14/19 04:35 Not Reportable 03/14/19 04:35 Not Reportable 03/14/19 04:35 Few 03/14/19 04:35 Not Reportable 03/14/19 04:35 Not Reportable 03/14/19 04:35 Not Reportable 03/14/19 04:35 Not Reportable 03/14/19 04:35 Not Reportable 03/14/19 04:35 Not Reportable 03/14/19 04:35 Not Reportable 03/14/19 04:35 Acanthocytes (Spur) Not Reportable 03/14/19 04:35 Rouleaux Not Reportable 03/14/19 04:35 Not Reportable 03/14/19 04:35 Not Reportable 03/14/19 04:35 Not Reportable 03/14/19 04:35 Not Reportable 03/14/19 04:35 Hem Pathologist Commnt No 03/14/19 04:35 PT 14.9 Sec. (12.2-14.9) 03/11/19 18:23 INR 1.20 (0.87-1.13) H 03/11/19 18:23 Sodium 136 mmol/L (137-145) L 03/15/19 04:33 Potassium 4.7 mmol/L (3.6-5.0) 03/15/19 04:33 Chloride 100.5 mmol/L (98-107) 03/15/19 04:33 Carbon Dioxide 25 mmol/L (22-30) 03/15/19 04:33 15 mmol/L 03/15/19 04:33 BUN 40 mg/dL (9-20) H 03/15/19 04:33 10.5 mg/dL (0.8-1.5) H 03/15/19 04:33 Estimated GFR 6 ml/min 03/15/19 04:33 4 % 03/15/19 04:33 Glucose 186 mg/dL (75-100) H 03/15/19 04:33 POC Glucose 188 (70-105) H 03/15/19 08:47 8.0 % (4-6) H 03/11/19 Unknown Calcium 8.6 mg/dL (8.4-10.2) 03/15/19 04:33 Magnesium 2.70 mg/dL (1.7-2.3) H 03/11/19 18:23 Magnesium 2.70 mg/dL (1.7-2.3) H 03/11/19 18:23 Iron 59 ug/dL (49-181) 03/14/19 04:32 TIBC 155 mcg/dL (250-450) L 03/14/19 04:32 563.3 ng/mL (13.0-400.0) H 03/14/19 08:45 0.30 mg/dL (0.1-1.2) 03/15/19 04:33 AST 40 units/L (5-40) 03/15/19 04:33 ALT 22 units/L (7-56) 03/15/19 04:33 69 units/L (35-129) 03/15/19 04:33 62 units/L (55-170) 03/11/19 18:23 6.1 g/dL (6.3-8.2) L 03/15/19 04:33 3.2 g/dL (3.9-5) L 03/15/19 04:33 1.1 % 03/15/19 04:33 42 units/L (13-60) 03/11/19 18:23 Vitamin B12 886.3 pg/mL (211-911) 03/13/19 12:59 19.22 ng/mL (7.3-26.0) 03/13/19 12:59 Hepatitis A IgM Ab Non-reactive (NonReactive) 03/12/19 20:07 Hep Bs Antigen Non-reactive (Negative) 03/12/19 20:07 Hep Bs Antigen Nonreactive (Negative) 03/12/19 20:07 Hep B Core IgM Ab Non-reactive (NonReactive) 03/12/19 20:07 Non-reactive (NonReactive) 03/12/19 20:07 Non-reactive (NonReactive) 03/12/19 20:07 Blood Type O POSITIVE 03/11/19 18:23 Antibody Screen Negative 03/11/19 18:23 Active Medications - Current Medications Current Medications: Generic Name Dose Route Start Last Admin Trade Name Freq PRN Reason Stop Dose Admin Acetaminophen 650 mg 03/11/19 19:41 Tylenol PO Q4H PRN Pain MILD(1-3)/Fever >100.5/RUIZ Dextrose 50 ml 03/11/19 19:44 D50w (25gm) Syringe IV PRN PRN Hypoglycemia Pantoprazole Sodium 80 mg/ 100 mls @ 10 mls/hr 03/11/19 20:00 03/15/19 06:19 Sodium Chloride IV 8 mg/hr DIRECT W[place] 10 mls/hr Administration 8 MG/HR Sodium Chloride 100 mls @ 999 mls/hr 03/12/19 09:11 Nacl 0.9% IV MANINDER PRN Hypotension Sodium Chloride 1,000 mls @ 50 mls/hr 03/12/19 13:00 03/14/19 21:50 Nacl 0.9% 1000 Ml IV 50 mls/hr DIRECT [place] Administration Sodium Chloride 1,000 mls @ 50 mls/hr 03/12/19 18:00 Nacl 0.9% 1000 Ml IV DIRECT [place] Sodium Chloride 100 mls @ 999 mls/hr 03/13/19 11:32 Nacl 0.9% IV MANINDER PRN Hypotension Insulin Human Regular 0 units 03/14/19 11:30 03/14/19 21:54 Humulin R SUB-Q Not Given ACHS [facility] Protocol Ondansetron HCl 4 mg 03/11/19 19:41 Zofran IV Q8H PRN Nausea And Vomiting Sodium Chloride 10 ml 03/11/19 22:00 03/14/19 21:50 Sodium Chloride Flush Syringe 10 Ml IV 10 ml BID [place] Administration Sodium Chloride 10 ml 03/11/19 19:41 Sodium Chloride Flush Syringe 10 Ml IV PRN PRN LINE FLUSH
[2019-03-15] MEDS: SODIUM CHLORIDE FLUSH SYRINGE 10 ML IV SCH ×2 (10:30→22:29)
[2019-03-15] MEDS ORDERED: NACL 0.9 (PRIMING MACHINE ONLY DIALYSIS) MC ONE (10:51)
[2019-03-15] MEDS ORDERED: FERRLECIT 125 MG in NACL 0.9% 100 ML IV ONE (12:00)
[2019-03-15] MEDS ORDERED: HumuLIN R ONE (17:25)
[2019-03-16 04:51] LABS: Hemoglobin 6.4 gm/dl (11.8-15.2); Mean Corpuscular HGB Conc 35 % (32-34); Mean Corpuscular Volume 91 fl (84-94); Red Blood Count 2.03 M/mm3 (3.65-5.03); Red Cell Distribution Width 16.8 % (13.2-15.2)
[2019-03-16 04:55] LABS: Hematocrit 18.5 % (35.5-45.6)
[2019-03-16 04:57] LABS: Calcium 8.2 mg/dL (8.4-10.2)
--- NOTE | 2019-03-16 06:00 | Hem/Onc Progress Note ---
Assessment and Plan 1. Normocytic anemia. The patient while on dialysis, usually gets erythropoietin support and iron with dialysis because of history of hematemesis. Iron has already been given. 2. The patient's platelet counts are also low. This needs to be pursued. This may be a marrow issue. 3. End-stage renal disease, on dialysis. 4. Gastrointestinal bleed. 5. Electrolyte issue. 6. History of hypertension. 7. History of below knee amputation. 8. The patient is Congregation and refuses transfusion support. Desmopressin has been given for platelet dysfunction and end-stage renal disease. 9. The patient took nonsteroidal medication. 10. Smear evaluation shows microcytosis. I will follow the patient during inpatient stay. I will liaise with other physicians. The patient is on dialysis, usually gets Epogen and IV iron with dialysis. SQ procrit infed ? need for more Ix - Patient Problems (1) Anemia Current Visit: Yes Status: Acute Subjective Date of service: 03/16/19 Principal diagnosis: anemia Interval history: no pain Objective - Exam Narrative Exam: Pain - none General appearance no acute distress Performance status limited self care Eyes - no icterus ENT no thrush LNs cervical not palpable Neck - normal ROM Respiratory Normal Breath sounds - CTA CVS S1 S2 + Extremities normal temperature General GI Soft Rectal deferred male - deferred Skin warm Musculoskeletal moving normal Neurologically no focal deficit - Constitutional Vitals: Last Vital Signs Temp 98.8 F 03/16/19 03:35 Pulse 87 03/16/19 02:01 Resp 18 03/16/19 02:01 BP 130/45 03/16/19 02:01 Pulse Ox 97 03/16/19 00:00 - Labs Lab Results: Laboratory Results - last 24 hr 03/15/19 03/15/19 03/15/19 04:33 08:47 16:30 WBC RBC Hgb Hct MCV MCH MCHC RDW Sodium 136 L Potassium 4.7 Chloride 100.5 Carbon Dioxide 25 Anion Gap 15 BUN 40 H Creatinine 10.5 H Estimated GFR 6 BUN/Creatinine Ratio 4 Glucose 186 H POC Glucose 188 H 249 H Calcium 8.6 Total Bilirubin 0.30 AST 40 ALT 22 Alkaline Phosphatase 69 Total Protein 6.1 L Albumin 3.2 L Albumin/Globulin Ratio 1.1 03/15/19 03/16/19 03/16/19 20:49 04:01 04:01 WBC 4.6 RBC 2.03 L Hgb 6.4 L Hct 18.5 L* MCV 91 MCH 32 MCHC 35 H RDW 16.8 H Sodium 136 L Potassium 4.2 Chloride 97.8 L Carbon Dioxide 25 Anion Gap 17 BUN 21 H Creatinine 7.2 H Estimated GFR 9 BUN/Creatinine Ratio 3 Glucose 176 H POC Glucose 125 H Calcium 8.2 L Total Bilirubin AST ALT Alkaline Phosphatase Total Protein Albumin Albumin/Globulin Ratio Medications & Allergies - Medications Allergies/Adverse Reactions: Allergies No Known Allergies Allergy (Verified 02/09/17 17:59) Home Medications: Home Medications Medication Instructions Recorded Confirmed Last Taken Type amLODIPine [Norvasc] 10 mg PO DAILY #30 tablet 02/14/17 03/11/19 Unknown Rx B Complex W-C No.20/Folic Acid 1 mg PO QDAY 03/11/19 03/11/19 Unknown History [Virt-Caps Softgel] Calcium Acetate [Phoslo] 667 mg PO TID 03/11/19 03/11/19 Unknown History Furosemide [Lasix TAB] 80 mg PO QAM 03/11/19 03/11/19 Unknown History Sevelamer Carbonate [Renvela] 800 mg PO TIDWM 03/11/19 03/11/19 Unknown History cloNIDine [Catapres] 0.1 mg PO TID 03/11/19 03/11/19 Unknown History Active Medications: Generic Name Dose Route Start Last Admin Trade Name Freq PRN Reason Stop Dose Admin Acetaminophen 650 mg 03/11/19 19:41 Tylenol PO Q4H PRN Pain MILD(1-3)/Fever >100.5/RUIZ Dextrose 50 ml 03/11/19 19:44 D50w (25gm) Syringe IV PRN PRN Hypoglycemia Pantoprazole Sodium 80 mg/ 100 mls @ 10 mls/hr 03/11/19 20:00 03/15/19 17:27 Sodium Chloride IV 8 mg/hr DIRECT WINSTON 10 mls/hr Administration 8 MG/HR Sodium Chloride 100 mls @ 999 mls/hr 03/12/19 09:11 Nacl 0.9% IV MANINDER PRN Hypotension Sodium Chloride 1,000 mls @ 50 mls/hr 03/12/19 13:00 03/14/19 21:50 Nacl 0.9% 1000 Ml IV 50 mls/hr DIRECT [place] Administration Sodium Chloride 1,000 mls @ 50 mls/hr 03/12/19 18:00 Nacl 0.9% 1000 Ml IV DIRECT [place] Sodium Chloride 100 mls @ 999 mls/hr 03/13/19 11:32 Nacl 0.9% IV MANINDER PRN Hypotension Insulin Human Regular 0 units 03/14/19 11:30 03/15/19 22:30 Humulin R SUB-Q Not Given ACHS [facility] Protocol Ondansetron HCl 4 mg 03/11/19 19:41 Zofran IV Q8H PRN Nausea And Vomiting Sodium Chloride 10 ml 03/11/19 22:00 03/15/19 22:29 Sodium Chloride Flush Syringe 10 Ml IV 10 ml BID [facility] Administration Sodium Chloride 10 ml 03/11/19 19:41 Sodium Chloride Flush Syringe 10 Ml IV PRN PRN LINE FLUSH
[2019-03-16 07:02] LABS: Platelet Count 110 K/mm3 (140-440)
[2019-03-16] MEDS ORDERED: PROCRIT SUB-Q ONE (08:00)
[2019-03-16] MEDS: HumuLIN R SUB-Q SCH ×4 (08:35→21:21)
[2019-03-16] MEDS: PROTONIX 80 MG in NACL 0.9% 100 ML IV SCH (10:21)
--- NOTE | 2019-03-16 10:21 | Progress Note ---
Subjective Principal diagnosis: anemia - low plt Interval history: Patient was seen today for follow-up on multiple renal related issues Events of this hospitalization noted His his ear at the bedside Patient is a Jehovah witness He was taking ibuprofen in outpatient setting resulting in GI bleed Patient denies having any chest pain pressure or shortness of breath Vitals labs intake output medications were reviewed Social history: Reviewed Allergies: Reviewed Family history: Reviewed Physical examination HEENT: Oral mucosa moist no pallor or icterus Neck: Supple no JVD Chest: Clear to auscultation anteriorly CVS: Regular rate and rhythm S1 and S2 heard Abdomen: Soft nontender no suprapubic masses no organomegaly appreciable Extremity: Dry skin less than 1+ peripheral edema Musculoskeletal: No joint effusion noted in knees and ankle Status post amputation one leg Neurological: Alert awake Dermatology: No petechial rashes Psychiatry: No evidence of any agitation and aggression noted Assessment and plan; End-stage renal disease: Patient will continue with hemodialysis on Sunday and Sunday schedule while here, 3 hour 45 minutes Anemia: Currently being followed by hematology oncology Patient is a Gnosticist was taking nonsteroidal drugs resulting in bleeding Adequately counseled and educated regarding all the renal related issues Noted to have peptic ulcer disease, GI to follow We'll continue to follow and make recommendation from renal standpoint Objective - Vital Signs Vital signs: Vital Signs - 12hr 03/15/19 03/15/19 03/16/19 23:01 23:40 00:00 Temperature 99.3 F Pulse Rate Pulse Rate [ 88 From Monitor] Respiratory 13 Rate Blood Pressure 116/54 143/66 O2 Sat by Pulse 97 Oximetry 03/16/19 03/16/19 03/16/19 01:00 02:01 03:01 Temperature Pulse Rate 88 87 85 Pulse Rate [ From Monitor] Respiratory 13 18 14 Rate Blood Pressure 141/62 130/45 130/45 O2 Sat by Pulse Oximetry 03/16/19 03/16/19 03/16/19 03:35 04:00 04:01 Temperature 98.8 F Pulse Rate 87 Pulse Rate [ 88 From Monitor] Respiratory 13 24 Rate Blood Pressure 114/56 O2 Sat by Pulse 97 Oximetry 03/16/19 03/16/19 03/16/19 05:01 06:00 07:00 Temperature Pulse Rate 85 75 Pulse Rate [ From Monitor] Respiratory 12 13 Rate Blood Pressure 94/60 111/42 132/61 O2 Sat by Pulse Oximetry 03/16/19 03/16/19 08:00 09:01 Temperature 98.7 F Pulse Rate 80 183 H Pulse Rate [ 83 From Monitor] Respiratory 21 15 Rate Blood Pressure 118/54 191/164 O2 Sat by Pulse 98 Oximetry - Lab 03/16/19 04:01 03/16/19 04:01 Most recent lab results Calcium 8.2 mg/dL (8.4-10.2) L 03/16/19 04:01 Magnesium 2.70 mg/dL (1.7-2.3) H 03/11/19 18:23 Magnesium 2.70 mg/dL (1.7-2.3) H 03/11/19 18:23 Medications & Allergies - Medications Allergies/Adverse Reactions: Allergies No Known Allergies Allergy (Verified 02/09/17 17:59) Home Medications: Home Medications Medication Instructions Recorded Confirmed Last Taken Type amLODIPine [Norvasc] 10 mg PO DAILY #30 tablet 02/14/17 03/11/19 Unknown Rx B Complex W-C No.20/Folic Acid 1 mg PO QDAY 03/11/19 03/11/19 Unknown History [Virt-Caps Softgel] Calcium Acetate [Phoslo] 667 mg PO TID 03/11/19 03/11/19 Unknown History Furosemide [Lasix TAB] 80 mg PO QAM 03/11/19 03/11/19 Unknown History Sevelamer Carbonate [Renvela] 800 mg PO TIDWM 03/11/19 03/11/19 Unknown History cloNIDine [Catapres] 0.1 mg PO TID 03/11/19 03/11/19 Unknown History Active Medications: Generic Name Dose Route Start Last Admin Trade Name Freq PRN Reason Stop Dose Admin Acetaminophen 650 mg 03/11/19 19:41 Tylenol PO Q4H PRN Pain MILD(1-3)/Fever >100.5/RUIZ Dextrose 50 ml 03/11/19 19:44 D50w (25gm) Syringe IV PRN PRN Hypoglycemia Pantoprazole Sodium 80 mg/ 100 mls @ 10 mls/hr 03/11/19 20:00 03/15/19 17:27 Sodium Chloride IV 8 mg/hr DIRECT W[place] 10 mls/hr Administration 8 MG/HR Sodium Chloride 100 mls @ 999 mls/hr 03/12/19 09:11 Nacl 0.9% IV MANINDER PRN Hypotension Sodium Chloride 1,000 mls @ 50 mls/hr 03/12/19 13:00 03/14/19 21:50 Nacl 0.9% 1000 Ml IV 50 mls/hr DIRECT [place] Administration Sodium Chloride 1,000 mls @ 50 mls/hr 03/12/19 18:00 Nacl 0.9% 1000 Ml IV DIRECT [place] Sodium Chloride 100 mls @ 999 mls/hr 03/13/19 11:32 Nacl 0.9% IV MANINDER PRN Hypotension Insulin Human Regular 0 units 03/14/19 11:30 03/15/19 22:30 Humulin R SUB-Q Not Given ACHS [facility] Protocol Ondansetron HCl 4 mg 03/11/19 19:41 Zofran IV Q8H PRN Nausea And Vomiting Sodium Chloride 10 ml 03/11/19 22:00 03/15/19 22:29 Sodium Chloride Flush Syringe 10 Ml IV 10 ml BID [place] Administration Sodium Chloride 10 ml 03/11/19 19:41 Sodium Chloride Flush Syringe 10 Ml IV PRN PRN LINE FLUSH
[2019-03-16] MEDS: SODIUM CHLORIDE FLUSH SYRINGE 10 ML IV SCH ×3 (10:25→21:18)
--- NOTE | 2019-03-16 14:46 | Progress Note ---
Assessment and Plan Assessment and plan: Patient is 63-year-old -[place] man who is a Jehovah Witness with a history of ESRD on HD M/W/, DM2 with neuropathy, HTN and left BKA who presents to [facility] with nausea, vomiting, hematemesis, and dark bloody stools. CXR did not show any acute cardiopulmonary abnormalities. He was found to be anemic with hemoglobin of 9.3. Drop in Hemoglobin from 9.3 on admission to 6.2, treated with iron infusion and EPO: continue to monitor h/h closely, consulted Heme/Onc Acute GI hemorrhage: EGD done and revealed gastric ulcers, treated with Epinephr ine injection, continue PPI, GI input noted, advance diet per GI Gastric Ulcers s/p epi: treat with PPI ESRD on HD M/W/F: Nephrology consulted, input noted Acute on chronic Anemia: monitor H/H closely, possibly EPO with Hemodialysis Hyperkalemia: need HD, monitor BMP closely Mild hyponatremia, resolved HTN stable: monitor sodium intake Decubitus ulcers, poa with Right 2nd and 3th toe, dry gangrene : wound care consulted, input noted Jehovah Witness, refuses blood transfusion. History Interval history: Patient was seen and examined. Follow-up on current diagnosis AGIB. No overnight events reported to me. Patient denies any chest pain, shortness breath, or severe headaches. Imaging, nursing note, chart, labs and old chart reviewed. Discussed with patient. at bedside. Hospitalist Physical - Physical exam Narrative exam: Gen: WDWN, NAD, Awake, Alert, Orientated HEENT: NCAT, EOMI, PERRL, OP Clear Neck: supple, no adenopathy, no thyromegaly, no JVD CVS/Heart: RRR, normal S1S2, pulses present bilaterally Chest/Lungs: CTA B, Symmetrical chest expansion, good air entry bilaterally GI/Abdomen: soft, NTND, good bowel sounds, no guarding or rebound /Bladder: no suprapubic tenderness, no CVA or paraspinal tenderness Extermity/Skin: right 2nd and 3rd toe dry gangrene and dry pressure ulcer on left stump MSK: FROM x 3,s/p old left BKA Neuro: CN 2-12 grossly intact, no new focal deficits Psych: calm - Constitutional Vitals: Temp Pulse Resp BP Pulse Ox 98.5 F 74 15 143/62 98 03/16/19 12:00 03/16/19 14:00 03/16/19 12:00 03/16/19 14:00 03/16/19 14:00 General appearance: Present: no acute distress Results - Labs CBC & Chem 7: 03/16/19 04:01 03/16/19 04:01 Labs: Laboratory Last Values WBC 4.6 K/mm3 (4.5-11.0) 03/16/19 04:01 RBC 2.03 M/mm3 (3.65-5.03) L 03/16/19 04:01 Hgb 6.4 gm/dl (11.8-15.2) L 03/16/19 04:01 Hct 18.5 % (35.5-45.6) L* 03/16/19 04:01 MCV 91 fl (84-94) 03/16/19 04:01 MCH 32 pg (28-32) 03/16/19 04:01 MCHC 35 % (32-34) H 03/16/19 04:01 RDW 16.8 % (13.2-15.2) H 03/16/19 04:01 Plt Count 110 K/mm3 (140-440) L 03/16/19 04:01 Lymph % (Auto) 13.0 % (13.4-35.0) L 03/12/19 05:24 Nobles % (Auto) 13.4 % (0.0-7.3) H 03/12/19 05:24 Eos % (Auto) 0.4 % (0.0-4.3) 03/12/19 05:24 Baso % (Auto) 0.2 % (0.0-1.8) 03/12/19 05:24 Lymph # 0.9 K/mm3 (1.2-5.4) L 03/12/19 05:24 Nobles # 0.9 K/mm3 (0.0-0.8) H 03/12/19 05:24 Eos # 0.0 K/mm3 (0.0-0.4) 03/12/19 05:24 Baso # 0.0 K/mm3 (0.0-0.1) 03/12/19 05:24 Total Counted 100 03/14/19 04:35 Seg Neutrophils % 73.0 % (40.0-70.0) H 03/12/19 05:24 Seg Neuts % (Manual) 70.0 % (40.0-70.0) 03/14/19 04:35 0 % 03/14/19 04:35 13.0 % (13.4-35.0) L 03/14/19 04:35 Reactive Lymphs % (Man) 0 % 03/14/19 04:35 9.0 % (0.0-7.3) H 03/14/19 04:35 8.0 % (0.0-4.3) H 03/14/19 04:35 0 % (0.0-1.8) 03/14/19 04:35 0 % 03/14/19 04:35 0 % 03/14/19 04:35 0 % 03/14/19 04:35 0 % 03/14/19 04:35 Nucleated RBC % Not Reportable 03/14/19 04:35 Seg Neutrophils # 4.9 K/mm3 (1.8-7.7) 03/12/19 05:24 Seg Neutrophils # Man 0.0 K/mm3 (1.8-7.7) L 03/14/19 04:35 Band Neutrophils # 0.0 K/mm3 03/14/19 04:35 0.0 K/mm3 (1.2-5.4) L 03/14/19 04:35 Abs React Lymphs (Man) 0.0 K/mm3 03/14/19 04:35 0.0 K/mm3 (0.0-0.8) 03/14/19 04:35 0.0 K/mm3 (0.0-0.4) 03/14/19 04:35 0.0 K/mm3 (0.0-0.1) 03/14/19 04:35 0.0 K/mm3 03/14/19 04:35 0.0 K/mm3 03/14/19 04:35 0.0 K/mm3 03/14/19 04:35 Blast Cells # 0.0 K/mm3 03/14/19 04:35 Pathologist Review 03/14/19 04:35 WBC Morphology Not Reportable 03/14/19 04:35 Hypersegmented Neuts Not Reportable 03/14/19 04:35 Hyposegmented Neuts Not Reportable 03/14/19 04:35 Hypogranular Neuts Not Reportable 03/14/19 04:35 Not Reportable 03/14/19 04:35 Not Reportable 03/14/19 04:35 Not Reportable 03/14/19 04:35 Not Reportable 03/14/19 04:35 Not Reportable 03/14/19 04:35 Not Reportable 03/14/19 04:35 Consistent w auto 03/14/19 04:35 Not Reportable 03/14/19 04:35 Plt Clumps, EDTA Not Reportable 03/14/19 04:35 Few 03/14/19 04:35 Not Reportable 03/14/19 04:35 Not Reportable 03/14/19 04:35 Plt Morphology Comment Not Reportable 03/14/19 04:35 RBC Morphology Not Reportable 03/14/19 04:35 Dimorphic RBCs Not Reportable 03/14/19 04:35 Not Reportable 03/14/19 04:35 Few 03/14/19 04:35 Not Reportable 03/14/19 04:35 1+ 03/14/19 04:35 1+ 03/14/19 04:35 Few 03/14/19 04:35 Not Reportable 03/14/19 04:35 Not Reportable 03/14/19 04:35 Not Reportable 03/14/19 04:35 Not Reportable 03/14/19 04:35 Not Reportable 03/14/19 04:35 Few 03/14/19 04:35 Not Reportable 03/14/19 04:35 Not Reportable 03/14/19 04:35 Not Reportable 03/14/19 04:35 Not Reportable 03/14/19 04:35 Not Reportable 03/14/19 04:35 Not Reportable 03/14/19 04:35 Not Reportable 03/14/19 04:35 Acanthocytes (Spur) Not Reportable 03/14/19 04:35 Rouleaux Not Reportable 03/14/19 04:35 Not Reportable 03/14/19 04:35 Not Reportable 03/14/19 04:35 Not Reportable 03/14/19 04:35 Not Reportable 03/14/19 04:35 Hem Pathologist Commnt No 03/14/19 04:35 PT 14.9 Sec. (12.2-14.9) 03/11/19 18:23 INR 1.20 (0.87-1.13) H 03/11/19 18:23 Sodium 136 mmol/L (137-145) L 03/16/19 04:01 Potassium 4.2 mmol/L (3.6-5.0) 03/16/19 04:01 Chloride 97.8 mmol/L (98-107) L 03/16/19 04:01 Carbon Dioxide 25 mmol/L (22-30) 03/16/19 04:01 17 mmol/L 03/16/19 04:01 BUN 21 mg/dL (9-20) H 03/16/19 04:01 7.2 mg/dL (0.8-1.5) H 03/16/19 04:01 Estimated GFR 9 ml/min 03/16/19 04:01 3 % 03/16/19 04:01 Glucose 176 mg/dL (75-100) H 03/16/19 04:01 POC Glucose 201 (70-105) H 03/16/19 12:09 8.0 % (4-6) H 03/11/19 Unknown Calcium 8.2 mg/dL (8.4-10.2) L 03/16/19 04:01 Magnesium 2.70 mg/dL (1.7-2.3) H 03/11/19 18:23 Magnesium 2.70 mg/dL (1.7-2.3) H 03/11/19 18:23 Iron 59 ug/dL (49-181) 03/14/19 04:32 TIBC 155 mcg/dL (250-450) L 03/14/19 04:32 563.3 ng/mL (13.0-400.0) H 03/14/19 08:45 0.30 mg/dL (0.1-1.2) 03/15/19 04:33 AST 40 units/L (5-40) 03/15/19 04:33 ALT 22 units/L (7-56) 03/15/19 04:33 69 units/L (35-129) 03/15/19 04:33 62 units/L (55-170) 03/11/19 18:23 6.1 g/dL (6.3-8.2) L 03/15/19 04:33 3.2 g/dL (3.9-5) L 03/15/19 04:33 1.1 % 03/15/19 04:33 42 units/L (13-60) 03/11/19 18:23 Vitamin B12 886.3 pg/mL (211-911) 03/13/19 12:59 19.22 ng/mL (7.3-26.0) 03/13/19 12:59 Hepatitis A IgM Ab Non-reactive (NonReactive) 03/12/19 20:07 Hep Bs Antigen Non-reactive (Negative) 03/12/19 20:07 Hep Bs Antigen Nonreactive (Negative) 03/12/19 20:07 Hep B Core IgM Ab Non-reactive (NonReactive) 03/12/19 20:07 Non-reactive (NonReactive) 03/12/19 20:07 Non-reactive (NonReactive) 03/12/19 20:07 Blood Type O POSITIVE 03/11/19 18:23 Antibody Screen Negative 03/11/19 18:23 Active Medications - Current Medications Current Medications: Generic Name Dose Route Start Last Admin Trade Name Freq PRN Reason Stop Dose Admin Acetaminophen 650 mg 03/11/19 19:41 Tylenol PO Q4H PRN Pain MILD(1-3)/Fever >100.5/RUIZ Dextrose 50 ml 03/11/19 19:44 D50w (25gm) Syringe IV PRN PRN Hypoglycemia Sodium Chloride 100 mls @ 999 mls/hr 03/12/19 09:11 Nacl 0.9% IV MANINDER PRN Hypotension Sodium Chloride 1,000 mls @ 50 mls/hr 03/12/19 18:00 03/16/19 12:38 Nacl 0.9% 1000 Ml IV 50 mls/hr DIRECT [place] Administration Sodium Chloride 100 mls @ 999 mls/hr 03/13/19 11:32 Nacl 0.9% IV MANINDER PRN Hypotension Insulin Human Regular 0 units 03/14/19 11:30 03/16/19 12:39 Humulin R SUB-Q 3 units ACHS [facility] Administration Protocol Ondansetron HCl 4 mg 03/11/19 19:41 Zofran IV Q8H PRN Nausea And Vomiting Pantoprazole Sodium 40 mg 03/16/19 22:00 Protonix PO BID W[place]ON Sodium Chloride 10 ml 03/11/19 22:00 03/16/19 10:25 Sodium Chloride Flush Syringe 10 Ml IV 10 ml BID [place] Administration Sodium Chloride 10 ml 03/11/19 19:41 Sodium Chloride Flush Syringe 10 Ml IV PRN PRN LINE FLUSH
[2019-03-16] MEDS: PROTONIX PO SCH (21:13)
--- NOTE | 2019-03-17 07:09 | Hem/Onc Progress Note ---
Assessment and Plan 1. Normocytic anemia. The patient while on dialysis, usually gets erythropoietin support and iron with dialysis because of history of hematemesis. Iron has already been given. 2. The patient's platelet counts are also low. This needs to be pursued. This may be a marrow issue. 3. End-stage renal disease, on dialysis. 4. Gastrointestinal bleed. 5. Electrolyte issue. 6. History of hypertension. 7. History of below knee amputation. 8. The patient is Yazidi and refuses transfusion support. Desmopressin has been given for platelet dysfunction and end-stage renal disease. 9. The patient took nonsteroidal medication. 10. Smear evaluation shows microcytosis. I will follow the patient during inpatient stay. I will liaise with other physicians. The patient is on dialysis, usually gets Epogen and IV iron with dialysis. SQ procrit infed - 03/16 pt had GI bleed - as per info - hb 9 - became 6s s/p EGD and procedure by GI team for ulcer - if hb does not improve - ? if he is still bleeding??? once functional improvement and hb >7 - ok for D/c if other drs agree - Patient Problems (1) Anemia Current Visit: Yes Status: Acute Subjective Date of service: 03/17/19 Principal diagnosis: anemia - GI bleed and CKD Interval history: feeling ok - transferred to [facility] floor Objective - Exam Narrative Exam: Pain - none General appearance no acute distress Performance status limited self care Eyes - no icterus ENT no thrush LNs cervical not palpable Neck - normal ROM Respiratory Normal Breath sounds - CTA CVS S1 S2 + Extremities normal temperature General GI Soft Rectal deferred male - deferred Skin warm Musculoskeletal moving normal - left BKA Neurologically no focal deficit - Constitutional Vitals: Last Vital Signs Temp 97.4 F L 03/17/19 05:44 Pulse 86 03/17/19 05:44 Resp 18 03/17/19 05:44 BP 146/68 03/17/19 05:44 Pulse Ox 98 03/17/19 05:44 - Labs Lab Results: Laboratory Results - last 24 hr 03/16/19 03/16/19 03/16/19 08:33 12:09 16:48 POC Glucose 179 H 201 H 143 H 03/16/19 21:22 POC Glucose 319 H Medications & Allergies - Medications Allergies/Adverse Reactions: Allergies No Known Allergies Allergy (Verified 02/09/17 17:59) Home Medications: Home Medications Medication Instructions Recorded Confirmed Last Taken Type amLODIPine [Norvasc] 10 mg PO DAILY #30 tablet 02/14/17 03/11/19 Unknown Rx B Complex W-C No.20/Folic Acid 1 mg PO QDAY 03/11/19 03/11/19 Unknown History [Virt-Caps Softgel] Calcium Acetate [Phoslo] 667 mg PO TID 03/11/19 03/11/19 Unknown History Furosemide [Lasix TAB] 80 mg PO QAM 03/11/19 03/11/19 Unknown History Sevelamer Carbonate [Renvela] 800 mg PO TIDWM 03/11/19 03/11/19 Unknown History cloNIDine [Catapres] 0.1 mg PO TID 03/11/19 03/11/19 Unknown History Active Medications: Generic Name Dose Route Start Last Admin Trade Name Freq PRN Reason Stop Dose Admin Acetaminophen 650 mg 03/11/19 19:41 Tylenol PO Q4H PRN Pain MILD(1-3)/Fever >100.5/RUIZ Dextrose 50 ml 03/11/19 19:44 D50w (25gm) Syringe IV PRN PRN Hypoglycemia Sodium Chloride 100 mls @ 999 mls/hr 03/12/19 09:11 Nacl 0.9% IV MANINDER PRN Hypotension Sodium Chloride 100 mls @ 999 mls/hr 03/13/19 11:32 Nacl 0.9% IV MANINDER PRN Hypotension Insulin Human Regular 0 units 03/14/19 11:30 03/16/19 21:21 Humulin R SUB-Q 6 units ACHS [facility] Administration Protocol Ondansetron HCl 4 mg 03/11/19 19:41 Zofran IV Q8H PRN Nausea And Vomiting Pantoprazole Sodium 40 mg 03/16/19 22:00 03/16/19 21:13 Protonix PO 40 mg BID [facility] Administration Sodium Chloride 10 ml 03/11/19 22:00 03/16/19 21:18 Sodium Chloride Flush Syringe 10 Ml IV 10 ml BID [facility] Administration Sodium Chloride 10 ml 03/11/19 19:41 Sodium Chloride Flush Syringe 10 Ml IV PRN PRN LINE FLUSH
[2019-03-17] MEDS: HumuLIN R SUB-Q SCH ×4 (07:30→22:27)
[2019-03-17 08:18] LABS: Basophils % (Auto) 0.7 % (0.0-1.8); Eosinophils # (Auto) 0.3 K/mm3 (0.0-0.4); Eosinophils % (Auto) 4.4 % (0.0-4.3); Hemoglobin 6.5 gm/dl (11.8-15.2); Lymphocytes # (Auto) 0.7 K/mm3 (1.2-5.4); Lymphocytes % (Auto) 12.2 % (13.4-35.0); Mean Corpuscular HGB Conc 33 % (32-34); Mean Corpuscular Volume 92 fl (84-94); Monocytes # (Auto) 0.7 K/mm3 (0.0-0.8); Monocytes % (Auto) 12.5 % (0.0-7.3); Platelet Count 139 K/mm3 (140-440); Red Blood Count 2.16 M/mm3 (3.65-5.03); Red Cell Distribution Width 18.1 % (13.2-15.2)
[2019-03-17 08:26] LABS: Hematocrit 19.8 % (35.5-45.6)
[2019-03-17] MEDS: PROTONIX PO SCH ×2 (10:00→22:26)
[2019-03-17] MEDS: SODIUM CHLORIDE FLUSH SYRINGE 10 ML IV SCH ×2 (10:00→22:26)
--- NOTE | 2019-03-17 11:02 | Progress Note ---
Assessment and Plan Assessment and plan: Patient is 63-year-old -[place] man who is a Jehovah Witness with a history of ESRD on HD M/W/, DM2 with neuropathy, HTN and left BKA who presents to [facility] ED with nausea, vomiting, hematemesis, and dark bloody stools. CXR did not show any acute cardiopulmonary abnormalities. He was found to be anemic with hemoglobin of 9.3. Drop in Hemoglobin from 9.3 on admission to 6.2, treated with iron infusion and EPO: continue to monitor h/h closely, consulted Heme/Onc Acute GI hemorrhage: EGD done and revealed gastric ulcers, treated with Epinephr ine injection, continue PPI, GI input noted, advance diet per GI Gastric Ulcers s/p epi: treat with PPI ESRD on HD M/W/F: Nephrology consulted, input noted Acute on chronic Anemia: monitor H/H closely, possibly EPO with Hemodialysis Hyperkalemia: need HD, monitor BMP closely Mild hyponatremia, resolved HTN stable: monitor sodium intake Decubitus ulcers, poa with Right 2nd and 3th toe, dry gangrene : wound care consulted, input noted Jehovah Witness, refuses blood transfusion. History Interval history: Patient was seen and examined. Follow-up on current diagnosis AGIB. No overnight events reported to me. Patient denies any chest pain, shortness breath, or severe headaches. Imaging, nursing note, chart, labs and old chart reviewed. Discussed with patient. at bedside. Hospitalist Physical - Physical exam Narrative exam: Gen: WDWN, NAD, Awake, Alert, Orientated HEENT: NCAT, EOMI, PERRL, OP Clear Neck: supple, no adenopathy, no thyromegaly, no JVD CVS/Heart: RRR, normal S1S2, pulses present bilaterally Chest/Lungs: CTA B, Symmetrical chest expansion, good air entry bilaterally GI/Abdomen: soft, NTND, good bowel sounds, no guarding or rebound /Bladder: no suprapubic tenderness, no CVA or paraspinal tenderness Extermity/Skin: right 2nd and 3rd toe dry gangrene and dry pressure ulcer on left stump MSK: FROM x 3,s/p old left BKA Neuro: CN 2-12 grossly intact, no new focal deficits Psych: calm - Constitutional Vitals: Temp Pulse Resp BP Pulse Ox 97.4 F L 86 20 146/68 98 03/17/19 05:44 03/17/19 09:02 03/17/19 09:02 03/17/19 05:44 03/17/19 09:02 General appearance: Present: no acute distress Results - Labs CBC & Chem 7: 03/17/19 07:44 03/16/19 04:01 Labs: Laboratory Last Values WBC 5.8 K/mm3 (4.5-11.0) 03/17/19 07:44 RBC 2.16 M/mm3 (3.65-5.03) L 03/17/19 07:44 Hgb 6.5 gm/dl (11.8-15.2) L 03/17/19 07:44 Hct 19.8 % (35.5-45.6) L* 03/17/19 07:44 MCV 92 fl (84-94) 03/17/19 07:44 MCH 30 pg (28-32) 03/17/19 07:44 MCHC 33 % (32-34) 03/17/19 07:44 RDW 18.1 % (13.2-15.2) H 03/17/19 07:44 Plt Count 139 K/mm3 (140-440) L 03/17/19 07:44 Lymph % (Auto) 12.2 % (13.4-35.0) L 03/17/19 07:44 Wilkinson % (Auto) 12.5 % (0.0-7.3) H 03/17/19 07:44 Eos % (Auto) 4.4 % (0.0-4.3) H 03/17/19 07:44 Baso % (Auto) 0.7 % (0.0-1.8) 03/17/19 07:44 Lymph # 0.7 K/mm3 (1.2-5.4) L 03/17/19 07:44 Wilkinson # 0.7 K/mm3 (0.0-0.8) 03/17/19 07:44 Eos # 0.3 K/mm3 (0.0-0.4) 03/17/19 07:44 Baso # 0.0 K/mm3 (0.0-0.1) 03/17/19 07:44 Total Counted 100 03/14/19 04:35 Seg Neutrophils % 70.2 % (40.0-70.0) H 03/17/19 07:44 Seg Neuts % (Manual) 70.0 % (40.0-70.0) 03/14/19 04:35 0 % 03/14/19 04:35 13.0 % (13.4-35.0) L 03/14/19 04:35 Reactive Lymphs % (Man) 0 % 03/14/19 04:35 9.0 % (0.0-7.3) H 03/14/19 04:35 8.0 % (0.0-4.3) H 03/14/19 04:35 0 % (0.0-1.8) 03/14/19 04:35 0 % 03/14/19 04:35 0 % 03/14/19 04:35 0 % 03/14/19 04:35 0 % 03/14/19 04:35 Nucleated RBC % Not Reportable 03/14/19 04:35 Seg Neutrophils # 4.0 K/mm3 (1.8-7.7) 03/17/19 07:44 Seg Neutrophils # Man 0.0 K/mm3 (1.8-7.7) L 03/14/19 04:35 Band Neutrophils # 0.0 K/mm3 03/14/19 04:35 0.0 K/mm3 (1.2-5.4) L 03/14/19 04:35 Abs React Lymphs (Man) 0.0 K/mm3 03/14/19 04:35 0.0 K/mm3 (0.0-0.8) 03/14/19 04:35 0.0 K/mm3 (0.0-0.4) 03/14/19 04:35 0.0 K/mm3 (0.0-0.1) 03/14/19 04:35 0.0 K/mm3 03/14/19 04:35 0.0 K/mm3 03/14/19 04:35 0.0 K/mm3 03/14/19 04:35 Blast Cells # 0.0 K/mm3 03/14/19 04:35 Pathologist Review 03/14/19 04:35 WBC Morphology Not Reportable 03/14/19 04:35 Hypersegmented Neuts Not Reportable 03/14/19 04:35 Hyposegmented Neuts Not Reportable 03/14/19 04:35 Hypogranular Neuts Not Reportable 03/14/19 04:35 Not Reportable 03/14/19 04:35 Not Reportable 03/14/19 04:35 Not Reportable 03/14/19 04:35 Not Reportable 03/14/19 04:35 Not Reportable 03/14/19 04:35 Not Reportable 03/14/19 04:35 Consistent w auto 03/14/19 04:35 Not Reportable 03/14/19 04:35 Plt Clumps, EDTA Not Reportable 03/14/19 04:35 Few 03/14/19 04:35 Not Reportable 03/14/19 04:35 Not Reportable 03/14/19 04:35 Plt Morphology Comment Not Reportable 03/14/19 04:35 RBC Morphology Not Reportable 03/14/19 04:35 Dimorphic RBCs Not Reportable 03/14/19 04:35 Not Reportable 03/14/19 04:35 Few 03/14/19 04:35 Not Reportable 03/14/19 04:35 1+ 03/14/19 04:35 1+ 03/14/19 04:35 Few 03/14/19 04:35 Not Reportable 03/14/19 04:35 Not Reportable 03/14/19 04:35 Not Reportable 03/14/19 04:35 Not Reportable 03/14/19 04:35 Not Reportable 03/14/19 04:35 Few 03/14/19 04:35 Not Reportable 03/14/19 04:35 Not Reportable 03/14/19 04:35 Not Reportable 03/14/19 04:35 Not Reportable 03/14/19 04:35 Not Reportable 03/14/19 04:35 Not Reportable 03/14/19 04:35 Not Reportable 03/14/19 04:35 Acanthocytes (Spur) Not Reportable 03/14/19 04:35 Rouleaux Not Reportable 03/14/19 04:35 Not Reportable 03/14/19 04:35 Not Reportable 03/14/19 04:35 Not Reportable 03/14/19 04:35 Not Reportable 03/14/19 04:35 Hem Pathologist Commnt No 03/14/19 04:35 PT 14.9 Sec. (12.2-14.9) 03/11/19 18:23 INR 1.20 (0.87-1.13) H 03/11/19 18:23 Sodium 136 mmol/L (137-145) L 03/16/19 04:01 Potassium 4.2 mmol/L (3.6-5.0) 03/16/19 04:01 Chloride 97.8 mmol/L (98-107) L 03/16/19 04:01 Carbon Dioxide 25 mmol/L (22-30) 03/16/19 04:01 17 mmol/L 03/16/19 04:01 BUN 21 mg/dL (9-20) H 03/16/19 04:01 7.2 mg/dL (0.8-1.5) H 03/16/19 04:01 Estimated GFR 9 ml/min 03/16/19 04:01 3 % 03/16/19 04:01 Glucose 176 mg/dL (75-100) H 03/16/19 04:01 POC Glucose 163 (70-105) H 03/17/19 07:58 8.0 % (4-6) H 03/11/19 Unknown Calcium 8.2 mg/dL (8.4-10.2) L 03/16/19 04:01 Magnesium 2.70 mg/dL (1.7-2.3) H 03/11/19 18:23 Magnesium 2.70 mg/dL (1.7-2.3) H 03/11/19 18:23 Iron 59 ug/dL (49-181) 03/14/19 04:32 TIBC 155 mcg/dL (250-450) L 03/14/19 04:32 563.3 ng/mL (13.0-400.0) H 03/14/19 08:45 0.30 mg/dL (0.1-1.2) 03/15/19 04:33 AST 40 units/L (5-40) 03/15/19 04:33 ALT 22 units/L (7-56) 03/15/19 04:33 69 units/L (35-129) 03/15/19 04:33 62 units/L (55-170) 03/11/19 18:23 6.1 g/dL (6.3-8.2) L 03/15/19 04:33 3.2 g/dL (3.9-5) L 03/15/19 04:33 1.1 % 03/15/19 04:33 42 units/L (13-60) 03/11/19 18:23 Vitamin B12 886.3 pg/mL (211-911) 03/13/19 12:59 19.22 ng/mL (7.3-26.0) 03/13/19 12:59 Hepatitis A IgM Ab Non-reactive (NonReactive) 03/12/19 20:07 Hep Bs Antigen Non-reactive (Negative) 03/12/19 20:07 Hep Bs Antigen Nonreactive (Negative) 03/12/19 20:07 Hep B Core IgM Ab Non-reactive (NonReactive) 03/12/19 20:07 Non-reactive (NonReactive) 03/12/19 20:07 Non-reactive (NonReactive) 03/12/19 20:07 Blood Type O POSITIVE 03/11/19 18:23 Antibody Screen Negative 03/11/19 18:23 Active Medications - Current Medications Current Medications: Generic Name Dose Route Start Last Admin Trade Name Freq PRN Reason Stop Dose Admin Acetaminophen 650 mg 03/11/19 19:41 Tylenol PO Q4H PRN Pain MILD(1-3)/Fever >100.5/RUIZ Dextrose 50 ml 03/11/19 19:44 D50w (25gm) Syringe IV PRN PRN Hypoglycemia Sodium Chloride 100 mls @ 999 mls/hr 03/13/19 11:32 Nacl 0.9% IV MANINDER PRN Hypotension Insulin Human Regular 0 units 03/14/19 11:30 03/16/19 21:21 Humulin R SUB-Q 6 units ACHS WINSTON Administration Protocol Ondansetron HCl 4 mg 03/11/19 19:41 Zofran IV Q8H PRN Nausea And Vomiting Pantoprazole Sodium 40 mg 03/16/19 22:00 03/16/19 21:13 Protonix PO 40 mg BID WINSTON Administration Sodium Chloride 10 ml 03/11/19 22:00 03/16/19 21:18 Sodium Chloride Flush Syringe 10 Ml IV 10 ml BID WINSTON Administration Sodium Chloride 10 ml 03/11/19 19:41 Sodium Chloride Flush Syringe 10 Ml IV PRN PRN LINE FLUSH
--- NOTE | 2019-03-17 11:24 | Progress Note ---
Assessment and Plan Impression: * End stage renal disease * GI bleed * Anemia secondary to ABL * Hyperkalemia * Hypertension Plan: * Hemodiaysis per outpatient MWF schedule * UF as tolerated * prbcs prn, rec 2 units today * GI recommendations noted * Diet per GI * Dose medications from a renal standpoint * Epogen TIW prn Subjective Date of service: 03/17/19 Principal diagnosis: anemia Interval history: resting well in bed today Objective - Exam Narrative Exam: General appearance: well-developed, well-nourished EENT: ATNC Respiratory: Present: Clear to Ascultation Cardiology: regular, S1S2 Gastrointestinal: normal, no tenderness, no distended Integumentary: no rash, warm and dry Musculoskeletal: other (no edema) Psychiatric: cooperative - Vital Signs Vital signs: Vital Signs - 12hr 03/16/19 03/17/19 03/17/19 23:41 00:00 05:44 Temperature 99.0 F 99 F 97.4 F L Pulse Rate 87 86 Pulse Rate [ 87 Brachial] Pulse Rate [ Right Radial] Respiratory 18 18 Rate Blood Pressure 162/70 162/70 146/68 O2 Sat by Pulse 100 100 98 Oximetry 03/17/19 09:02 Temperature Pulse Rate Pulse Rate [ Brachial] Pulse Rate [ 86 Right Radial] Respiratory 20 Rate Blood Pressure O2 Sat by Pulse 98 Oximetry - Lab 03/17/19 07:44 03/16/19 04:01 Most recent lab results Calcium 8.2 mg/dL (8.4-10.2) L 03/16/19 04:01 Magnesium 2.70 mg/dL (1.7-2.3) H 03/11/19 18:23 Magnesium 2.70 mg/dL (1.7-2.3) H 03/11/19 18:23 Medications & Allergies - Medications Allergies/Adverse Reactions: Allergies No Known Allergies Allergy (Verified 02/09/17 17:59) Home Medications: Home Medications Medication Instructions Recorded Confirmed Last Taken Type amLODIPine [Norvasc] 10 mg PO DAILY #30 tablet 02/14/17 03/11/19 Unknown Rx B Complex W-C No.20/Folic Acid 1 mg PO QDAY 03/11/19 03/11/19 Unknown History [Virt-Caps Softgel] Calcium Acetate [Phoslo] 667 mg PO TID 03/11/19 03/11/19 Unknown History Furosemide [Lasix TAB] 80 mg PO QAM 03/11/19 03/11/19 Unknown History Sevelamer Carbonate [Renvela] 800 mg PO TIDWM 03/11/19 03/11/19 Unknown History cloNIDine [Catapres] 0.1 mg PO TID 03/11/19 03/11/19 Unknown History Active Medications: Generic Name Dose Route Start Last Admin Trade Name Freq PRN Reason Stop Dose Admin Acetaminophen 650 mg 03/11/19 19:41 Tylenol PO Q4H PRN Pain MILD(1-3)/Fever >100.5/RUIZ Dextrose 50 ml 03/11/19 19:44 D50w (25gm) Syringe IV PRN PRN Hypoglycemia Sodium Chloride 100 mls @ 999 mls/hr 03/13/19 11:32 Nacl 0.9% IV MANINDER PRN Hypotension Insulin Human Regular 0 units 03/14/19 11:30 03/16/19 21:21 Humulin R SUB-Q 6 units ACHS WINSTON Administration Protocol Ondansetron HCl 4 mg 03/11/19 19:41 Zofran IV Q8H PRN Nausea And Vomiting Pantoprazole Sodium 40 mg 03/16/19 22:00 03/16/19 21:13 Protonix PO 40 mg BID WINSTON Administration Sodium Chloride 10 ml 03/11/19 22:00 03/16/19 21:18 Sodium Chloride Flush Syringe 10 Ml IV 10 ml BID WINSTON Administration Sodium Chloride 10 ml 03/11/19 19:41 Sodium Chloride Flush Syringe 10 Ml IV PRN PRN LINE FLUSH
[2019-03-17] MEDS ORDERED: FERRLECIT 125 MG in NACL 0.9% 100 ML IV ONE (13:08)
[2019-03-18 05:18] LABS: Hemoglobin 6.5 gm/dl (11.8-15.2); Mean Corpuscular HGB Conc 34 % (32-34); Mean Corpuscular Volume 92 fl (84-94); Platelet Count 139 K/mm3 (140-440); Red Cell Distribution Width 19.3 % (13.2-15.2)
[2019-03-18 05:28] LABS: Hematocrit 19.3 % (35.5-45.6)
[2019-03-18 05:47] LABS: Calcium 8.4 mg/dL (8.4-10.2)
[2019-03-18 06:35] LABS: Basophils % (Manual) 0 % (0.0-1.8); Total Cells Counted 100
[2019-03-18 06:36] LABS: Anisocytosis Few; Platelet Estimate Consistent w Auto; Poikilocytosis Few
--- NOTE | 2019-03-18 07:40 | Hem/Onc Progress Note ---
Assessment and Plan 1. Normocytic anemia. The patient while on dialysis, usually gets erythropoietin support and iron with dialysis because of history of hematemesis. Iron has already been given. 2. The patient's platelet counts are also low. This needs to besecondary to consumption 3. End-stage renal disease, on dialysis. 4. Gastrointestinal bleed. 5. Electrolyte issue. 6. History of hypertension. 7. History of below knee amputation. 8. The patient is Confucianism and refuses transfusion support. Desmopressin has been given for platelet dysfunction and end-stage renal disease. 9. The patient took nonsteroidal medication. 10. Smear evaluation shows microcytosis. I will follow the patient during inpatient stay. I will liaise with other physicians. The patient is on dialysis, usually gets Epogen and IV iron with dialysis. SQ procrit infed - 03/16 pt had GI bleed - as per info - hb was 9 - became 6s s/p EGD and procedure by GI team for ulcer - if hb does not improve - ? if he is still bleeding??? once functional improvement and hb >7 - ok for D/c if other drs agree periodic IV iron and procrit - Patient Problems (1) Anemia Current Visit: Yes Status: Acute Subjective Date of service: 03/18/19 Principal diagnosis: anemia Interval history: feeling ok - denies dark stools Objective - Exam Narrative Exam: Pain - none General appearance no acute distress Performance status limited self care Eyes - no icterus ENT no thrush LNs cervical not palpable Neck - normal ROM Respiratory Normal Breath sounds - CTA CVS S1 S2 + Extremities normal temperature General GI Soft Rectal deferred male - deferred Skin warm Musculoskeletal moving normal - left BKA Neurologically no focal deficit - Constitutional Vitals: Last Vital Signs Temp 98.6 F 03/18/19 05:22 Pulse 84 03/18/19 05:22 Resp 18 03/18/19 05:22 BP 148/65 03/18/19 05:22 Pulse Ox 98 03/18/19 05:22 - Labs Lab Results: Laboratory Results - last 24 hr 03/17/19 03/17/19 03/17/19 05:54 07:44 07:58 WBC 5.8 RBC 2.16 L Hgb 6.5 L Hct 19.8 L* MCV 92 MCH 30 MCHC 33 RDW 18.1 H Plt Count 139 L Lymph % (Auto) 12.2 L Gila % (Auto) 12.5 H Eos % (Auto) 4.4 H Baso % (Auto) 0.7 Lymph # 0.7 L Gila # 0.7 Eos # 0.3 Baso # 0.0 Add Manual Diff Total Counted Seg Neutrophils % 70.2 H Seg Neuts % (Manual) Band Neutrophils % Lymphocytes % (Manual) Reactive Lymphs % (Man) Monocytes % (Manual) Eosinophils % (Manual) Basophils % (Manual) Metamyelocytes % Myelocytes % Promyelocytes % Blast Cells % Nucleated RBC % Seg Neutrophils # 4.0 Seg Neutrophils # Man Band Neutrophils # Lymphocytes # (Manual) Abs React Lymphs (Man) Monocytes # (Manual) Eosinophils # (Manual) Basophils # (Manual) Metamyelocytes # Myelocytes # Promyelocytes # Blast Cells # WBC Morphology Hypersegmented Neuts Hyposegmented Neuts Hypogranular Neuts Smudge Cells Toxic Granulation Toxic Vacuolation Dohle Bodies Pelger-Huet Anomaly Adolfo Rods Platelet Estimate Clumped Platelets Plt Clumps, EDTA Large Platelets Giant Platelets Platelet Satelliting Plt Morphology Comment RBC Morphology Dimorphic RBCs Polychromasia Hypochromasia Poikilocytosis Anisocytosis Microcytosis Macrocytosis Spherocytes Pappenheimer Bodies Sickle Cells Target Cells Tear Drop Cells Ovalocytes Helmet Cells Castañeda-Vayas Bodies [place] Rings Hilary Cells Bite Cells Crenated Cell Elliptocytes Acanthocytes (Spur) Rouleaux Hemoglobin C Crystals Schistocytes Malaria parasites Yohannes Bodies Hem Pathologist Commnt Sodium Potassium Chloride Carbon Dioxide Anion Gap BUN Creatinine Estimated GFR BUN/Creatinine Ratio Glucose POC Glucose 122 H 163 H Calcium 03/17/19 03/17/19 03/17/19 12:28 16:03 21:35 WBC RBC Hgb Hct MCV MCH MCHC RDW Plt Count Lymph % (Auto) Gila % (Auto) Eos % (Auto) Baso % (Auto) Lymph # Gila # Eos # Baso # Add Manual Diff Total Counted Seg Neutrophils % Seg Neuts % (Manual) Band Neutrophils % Lymphocytes % (Manual) Reactive Lymphs % (Man) Monocytes % (Manual) Eosinophils % (Manual) Basophils % (Manual) Metamyelocytes % Myelocytes % Promyelocytes % Blast Cells % Nucleated RBC % Seg Neutrophils # Seg Neutrophils # Man Band Neutrophils # Lymphocytes # (Manual) Abs React Lymphs (Man) Monocytes # (Manual) Eosinophils # (Manual) Basophils # (Manual) Metamyelocytes # Myelocytes # Promyelocytes # Blast Cells # WBC Morphology Hypersegmented Neuts Hyposegmented Neuts Hypogranular Neuts Smudge Cells Toxic Granulation Toxic Vacuolation Dohle Bodies Pelger-Huet Anomaly Adolfo Rods Platelet Estimate Clumped Platelets Plt Clumps, EDTA Large Platelets Giant Platelets Platelet Satelliting Plt Morphology Comment RBC Morphology Dimorphic RBCs Polychromasia Hypochromasia Poikilocytosis Anisocytosis Microcytosis Macrocytosis Spherocytes Pappenheimer Bodies Sickle Cells Target Cells Tear Drop Cells Ovalocytes Helmet Cells Castañeda-Vayas Bodies [place] Rings Hilary Cells Bite Cells Crenated Cell Elliptocytes Acanthocytes (Spur) Rouleaux Hemoglobin C Crystals Schistocytes Malaria parasites Yohannes Bodies Hem Pathologist Commnt Sodium Potassium Chloride Carbon Dioxide Anion Gap BUN Creatinine Estimated GFR BUN/Creatinine Ratio Glucose POC Glucose 217 H 250 H 68 L Calcium 03/17/19 03/18/19 03/18/19 22:23 04:02 04:02 WBC 5.2 RBC 2.10 L Hgb 6.5 L Hct 19.3 L* MCV 92 MCH 31 MCHC 34 RDW 19.3 H Plt Count 139 L Lymph % (Auto) Gila % (Auto) Eos % (Auto) Baso % (Auto) Lymph # Gila # Eos # Baso # Add Manual Diff Complete Total Counted 100 Seg Neutrophils % Seg Neuts % (Manual) 65.0 Band Neutrophils % 0 Lymphocytes % (Manual) 18.0 Reactive Lymphs % (Man) 0 Monocytes % (Manual) 9.0 H Eosinophils % (Manual) 8.0 H Basophils % (Manual) 0 Metamyelocytes % 0 Myelocytes % 0 Promyelocytes % 0 Blast Cells % 0 Nucleated RBC % Not Reportable Seg Neutrophils # Seg Neutrophils # Man 3.4 Band Neutrophils # 0.0 Lymphocytes # (Manual) 0.9 L Abs React Lymphs (Man) 0.0 Monocytes # (Manual) 0.5 Eosinophils # (Manual) 0.4 Basophils # (Manual) 0.0 Metamyelocytes # 0.0 Myelocytes # 0.0 Promyelocytes # 0.0 Blast Cells # 0.0 WBC Morphology Not Reportable Hypersegmented Neuts Not Reportable Hyposegmented Neuts Not Reportable Hypogranular Neuts Not Reportable Smudge Cells Not Reportable Toxic Granulation Not Reportable Toxic Vacuolation Not Reportable Dohle Bodies Not Reportable Pelger-Huet Anomaly Not Reportable Adolfo Rods Not Reportable Platelet Estimate Consistent w auto Clumped Platelets Not Reportable Plt Clumps, EDTA Not Reportable Large Platelets Not Reportable Giant Platelets Not Reportable Platelet Satelliting Not Reportable Plt Morphology Comment Not Reportable RBC Morphology Not Reportable Dimorphic RBCs Not Reportable Polychromasia Not Reportable Hypochromasia Not Reportable Poikilocytosis Few Anisocytosis Few Microcytosis Not Reportable Macrocytosis Not Reportable Spherocytes Not Reportable Pappenheimer Bodies Not Reportable Sickle Cells Not Reportable Target Cells Not Reportable Tear Drop Cells Not Reportable Ovalocytes Not Reportable Helmet Cells Not Reportable Castañeda-Vayas Bodies Not Reportable [place] Rings Not Reportable Hilary Cells Not Reportable Bite Cells Not Reportable Crenated Cell Not Reportable Elliptocytes Not Reportable Acanthocytes (Spur) Not Reportable Rouleaux Not Reportable Hemoglobin C Crystals Not Reportable Schistocytes Not Reportable Malaria parasites Not Reportable Yohannes Bodies Not Reportable Hem Pathologist Commnt No Sodium 136 L Potassium 4.8 Chloride 97.7 L Carbon Dioxide 25 Anion Gap 18 BUN 34 H Creatinine 11.1 H D Estimated GFR 6 BUN/Creatinine Ratio 3 Glucose 139 H POC Glucose 146 H Calcium 8.4 Medications & Allergies - Medications Allergies/Adverse Reactions: Allergies No Known Allergies Allergy (Verified 02/09/17 17:59) Home Medications: Home Medications Medication Instructions Recorded Confirmed Last Taken Type amLODIPine [Norvasc] 10 mg PO DAILY #30 tablet 02/14/17 03/11/19 Unknown Rx B Complex W-C No.20/Folic Acid 1 mg PO QDAY 03/11/19 03/11/19 Unknown History [Virt-Caps Softgel] Calcium Acetate [Phoslo] 667 mg PO TID 03/11/19 03/11/19 Unknown History Furosemide [Lasix TAB] 80 mg PO QAM 03/11/19 03/11/19 Unknown History Sevelamer Carbonate [Renvela] 800 mg PO TIDWM 03/11/19 03/11/19 Unknown History cloNIDine [Catapres] 0.1 mg PO TID 03/11/19 03/11/19 Unknown History Ferrous Sulfate [Feosol 325 MG tab] 325 mg PO BID #60 tablet 03/19/19 Unknown Rx Pantoprazole [Protonix TAB] 40 mg PO DAILY #30 tablet 03/19/19 Unknown Rx Active Medications: Generic Name Dose Route Start Last Admin Trade Name Freq PRN Reason Stop Dose Admin Acetaminophen 650 mg 03/11/19 19:41 Tylenol PO Q4H PRN Pain MILD(1-3)/Fever >100.5/RUIZ Dextrose 50 ml 03/11/19 19:44 D50w (25gm) Syringe IV PRN PRN Hypoglycemia Sodium Chloride 100 mls @ 999 mls/hr 03/13/19 11:32 Nacl 0.9% IV MANINDER PRN Hypotension Insulin Human Regular 0 units 03/14/19 11:30 03/17/19 22:27 Humulin R SUB-Q Not Given ACHS COUNT INCLUDES THE [facility] Protocol Ondansetron HCl 4 mg 03/11/19 19:41 Zofran IV Q8H PRN Nausea And Vomiting Pantoprazole Sodium 40 mg 03/16/19 22:00 03/17/19 22:26 Protonix PO 40 mg BID WINSTON Administration Sodium Chloride 10 ml 03/11/19 22:00 03/17/19 22:26 Sodium Chloride Flush Syringe 10 Ml IV 10 ml BID WINSTON Administration Sodium Chloride 10 ml 03/11/19 19:41 Sodium Chloride Flush Syringe 10 Ml IV PRN PRN LINE FLUSH
[2019-03-18] MEDS: HumuLIN R SUB-Q SCH ×4 (08:01→22:32)
--- NOTE | 2019-03-18 08:18 | Progress Note ---
Assessment and Plan Assessment and plan: Patient is 63-year-old -[place] man who is a Jehovah Witness with a history of ESRD on HD M/W/F, DM2 with neuropathy, HTN and left BKA who presents to [facility] ED with nausea, vomiting, hematemesis, and dark bloody stools. CXR did not show any acute cardiopulmonary abnormalities. He was found to be anemic with hemoglobin of 9.3. Drop in Hemoglobin from 9.3 on admission to 6.2, treated with iron infusion and EPO: continue to monitor h/h closely, consulted Heme/Onc And discussed with them, concerned patient is still bleeding, Reached out back to GI. Acute GI hemorrhage: EGD done and revealed gastric ulcers, treated with Epinephrine injection, continue PPI, GI input noted, advance diet per GI., check Stool for occult blood. Check haptoglobin. [place] [facility] [place] if [place] will be a good candidate for the bloodless surgery clinic no response yet Gastric Ulcers s/p epi: treat with PPI ESRD on HD M/W/F: Nephrology consulted, input noted Acute on chronic Anemia: monitor H/H closely, possibly EPO with Hemodialysis Hyperkalemia: need HD, monitor BMP closely Mild hyponatremia, resolved HTN stable: monitor sodium intake Decubitus ulcers, poa with Right 2nd and 3th toe, dry gangrene : wound care consulted, input noted Jehovah Witness, refuses blood transfusion. Refused Bleeding scan. History Interval history: Patient seen examined currently stable no acute distress refusing further testing which included nuclear scan. Heart adverse event reported to me. Hospitalist Physical - Physical exam Narrative exam: Gen: WDWN, NAD, Awake, Alert, Orientated and upsets HEENT: NCAT, EOMI, PERRL, OP Clear Neck: supple, no adenopathy, no thyromegaly, no JVD CVS/Heart: RRR, normal S1S2, pulses present bilaterally Chest/Lungs: CTA B, Symmetrical chest expansion, good air entry bilaterally GI/Abdomen: soft, NTND, good bowel sounds, no guarding or rebound /Bladder: no suprapubic tenderness, no CVA or paraspinal tenderness Extermity/Skin: right 2nd and 3rd toe dry gangrene and dry pressure ulcer on left stump MSK: FROM x 3,s/p old left BKA Neuro: CN 2-12 grossly intact, no new focal deficits Psych: calm - Constitutional Vitals: Temp Pulse Resp BP Pulse Ox 98.6 F 84 18 148/65 98 03/18/19 05:22 03/18/19 05:22 03/18/19 05:22 03/18/19 05:22 03/18/19 05:22 General appearance: Present: no acute distress Results - Labs CBC & Chem 7: 03/19/19 04:14 03/19/19 04:14 Labs: Laboratory Last Values WBC 5.2 K/mm3 (4.5-11.0) 03/18/19 04:02 RBC 2.10 M/mm3 (3.65-5.03) L 03/18/19 04:02 Hgb 6.5 gm/dl (11.8-15.2) L 03/18/19 04:02 Hct 19.3 % (35.5-45.6) L* 03/18/19 04:02 MCV 92 fl (84-94) 03/18/19 04:02 MCH 31 pg (28-32) 03/18/19 04:02 MCHC 34 % (32-34) 03/18/19 04:02 RDW 19.3 % (13.2-15.2) H 03/18/19 04:02 Plt Count 139 K/mm3 (140-440) L 03/18/19 04:02 Lymph % (Auto) 12.2 % (13.4-35.0) L 03/17/19 07:44 [place] % (Auto) 12.5 % (0.0-7.3) H 03/17/19 07:44 Eos % (Auto) 4.4 % (0.0-4.3) H 03/17/19 07:44 Baso % (Auto) 0.7 % (0.0-1.8) 03/17/19 07:44 Lymph # 0.7 K/mm3 (1.2-5.4) L 03/17/19 07:44 [place] # 0.7 K/mm3 (0.0-0.8) 03/17/19 07:44 Eos # 0.3 K/mm3 (0.0-0.4) 03/17/19 07:44 Baso # 0.0 K/mm3 (0.0-0.1) 03/17/19 07:44 Add Manual Diff Complete 03/18/19 04:02 Total Counted 100 03/18/19 04:02 Seg Neutrophils % 70.2 % (40.0-70.0) H 03/17/19 07:44 Seg Neuts % (Manual) 65.0 % (40.0-70.0) 03/18/19 04:02 0 % 03/18/19 04:02 18.0 % (13.4-35.0) 03/18/19 04:02 Reactive Lymphs % (Man) 0 % 03/18/19 04:02 9.0 % (0.0-7.3) H 03/18/19 04:02 8.0 % (0.0-4.3) H 03/18/19 04:02 0 % (0.0-1.8) 03/18/19 04:02 0 % 03/18/19 04:02 0 % 03/18/19 04:02 0 % 03/18/19 04:02 0 % 03/18/19 04:02 Nucleated RBC % Not Reportable 03/18/19 04:02 Seg Neutrophils # 4.0 K/mm3 (1.8-7.7) 03/17/19 07:44 Seg Neutrophils # Man 3.4 K/mm3 (1.8-7.7) 03/18/19 04:02 Band Neutrophils # 0.0 K/mm3 03/18/19 04:02 0.9 K/mm3 (1.2-5.4) L 03/18/19 04:02 Abs React Lymphs (Man) 0.0 K/mm3 03/18/19 04:02 0.5 K/mm3 (0.0-0.8) 03/18/19 04:02 0.4 K/mm3 (0.0-0.4) 03/18/19 04:02 0.0 K/mm3 (0.0-0.1) 03/18/19 04:02 0.0 K/mm3 03/18/19 04:02 0.0 K/mm3 03/18/19 04:02 0.0 K/mm3 03/18/19 04:02 Blast Cells # 0.0 K/mm3 03/18/19 04:02 Pathologist Review 03/14/19 04:35 WBC Morphology Not Reportable 03/18/19 04:02 Hypersegmented Neuts Not Reportable 03/18/19 04:02 Hyposegmented Neuts Not Reportable 03/18/19 04:02 Hypogranular Neuts Not Reportable 03/18/19 04:02 Not Reportable 03/18/19 04:02 Not Reportable 03/18/19 04:02 Not Reportable 03/18/19 04:02 Not Reportable 03/18/19 04:02 Not Reportable 03/18/19 04:02 Not Reportable 03/18/19 04:02 Consistent w auto 03/18/19 04:02 Not Reportable 03/18/19 04:02 Plt Clumps, EDTA Not Reportable 03/18/19 04:02 Not Reportable 03/18/19 04:02 Not Reportable 03/18/19 04:02 Not Reportable 03/18/19 04:02 Plt Morphology Comment Not Reportable 03/18/19 04:02 RBC Morphology Not Reportable 03/18/19 04:02 Dimorphic RBCs Not Reportable 03/18/19 04:02 Not Reportable 03/18/19 04:02 Not Reportable 03/18/19 04:02 Few 03/18/19 04:02 Few 03/18/19 04:02 Not Reportable 03/18/19 04:02 Not Reportable 03/18/19 04:02 Not Reportable 03/18/19 04:02 Not Reportable 03/18/19 04:02 Not Reportable 03/18/19 04:02 Not Reportable 03/18/19 04:02 Not Reportable 03/18/19 04:02 Not Reportable 03/18/19 04:02 Not Reportable 03/18/19 04:02 Not Reportable 03/18/19 04:02 Not Reportable 03/18/19 04:02 Not Reportable 03/18/19 04:02 Not Reportable 03/18/19 04:02 Not Reportable 03/18/19 04:02 Not Reportable 03/18/19 04:02 Acanthocytes (Spur) Not Reportable 03/18/19 04:02 Rouleaux Not Reportable 03/18/19 04:02 Not Reportable 03/18/19 04:02 Not Reportable 03/18/19 04:02 Not Reportable 03/18/19 04:02 Not Reportable 03/18/19 04:02 Hem Pathologist Commnt No 03/18/19 04:02 PT 14.9 Sec. (12.2-14.9) 03/11/19 18:23 INR 1.20 (0.87-1.13) H 03/11/19 18:23 Sodium 136 mmol/L (137-145) L 03/18/19 04:02 Potassium 4.8 mmol/L (3.6-5.0) 03/18/19 04:02 Chloride 97.7 mmol/L (98-107) L 03/18/19 04:02 Carbon Dioxide 25 mmol/L (22-30) 03/18/19 04:02 18 mmol/L 03/18/19 04:02 BUN 34 mg/dL (9-20) H 03/18/19 04:02 11.1 mg/dL (0.8-1.5) H D 03/18/19 04:02 Estimated GFR 6 ml/min 03/18/19 04:02 3 % 03/18/19 04:02 Glucose 139 mg/dL (75-100) H 03/18/19 04:02 POC Glucose 145 (70-105) H 03/18/19 08:13 8.0 % (4-6) H 03/11/19 Unknown Calcium 8.4 mg/dL (8.4-10.2) 03/18/19 04:02 Magnesium 2.70 mg/dL (1.7-2.3) H 03/11/19 18:23 Magnesium 2.70 mg/dL (1.7-2.3) H 03/11/19 18:23 Iron 59 ug/dL (49-181) 03/14/19 04:32 TIBC 155 mcg/dL (250-450) L 03/14/19 04:32 563.3 ng/mL (13.0-400.0) H 03/14/19 08:45 0.30 mg/dL (0.1-1.2) 03/15/19 04:33 AST 40 units/L (5-40) 03/15/19 04:33 ALT 22 units/L (7-56) 03/15/19 04:33 69 units/L (35-129) 03/15/19 04:33 62 units/L (55-170) 03/11/19 18:23 6.1 g/dL (6.3-8.2) L 03/15/19 04:33 3.2 g/dL (3.9-5) L 03/15/19 04:33 1.1 % 03/15/19 04:33 42 units/L (13-60) 03/11/19 18:23 Vitamin B12 886.3 pg/mL (211-911) 03/13/19 12:59 19.22 ng/mL (7.3-26.0) 03/13/19 12:59 Hepatitis A IgM Ab Non-reactive (NonReactive) 03/12/19 20:07 Hep Bs Antigen Non-reactive (Negative) 03/12/19 20:07 Hep Bs Antigen Nonreactive (Negative) 03/12/19 20:07 Hep B Core IgM Ab Non-reactive (NonReactive) 03/12/19 20:07 Non-reactive (NonReactive) 03/12/19 20:07 Non-reactive (NonReactive) 03/12/19 20:07 Blood Type O POSITIVE 03/11/19 18:23 Antibody Screen Negative 03/11/19 18:23 Active Medications - Current Medications Current Medications: Generic Name Dose Route Start Last Admin Trade Name Freq PRN Reason Stop Dose Admin Acetaminophen 650 mg 03/11/19 19:41 Tylenol PO Q4H PRN Pain MILD(1-3)/Fever >100.5/RUIZ Dextrose 50 ml 03/11/19 19:44 D50w (25gm) Syringe IV PRN PRN Hypoglycemia Sodium Chloride 100 mls @ 999 mls/hr 03/13/19 11:32 Nacl 0.9% IV MANINDER PRN Hypotension Insulin Human Regular 0 units 03/14/19 11:30 03/18/19 08:01 Humulin R SUB-Q Not Given ACHS COUNTS INCLUDE 234 BEDS AT THE [facility] Protocol Ondansetron HCl 4 mg 03/11/19 19:41 Zofran IV Q8H PRN Nausea And Vomiting Pantoprazole Sodium 40 mg 03/16/19 22:00 03/17/19 22:26 Protonix PO 40 mg BID WINSTON Administration Sodium Chloride 10 ml 03/11/19 22:00 03/17/19 22:26 Sodium Chloride Flush Syringe 10 Ml IV 10 ml BID WINSTON Administration Sodium Chloride 10 ml 03/11/19 19:41 Sodium Chloride Flush Syringe 10 Ml IV PRN PRN LINE FLUSH
[2019-03-18] MEDS: PROTONIX PO SCH ×2 (09:25→22:27)
[2019-03-18] MEDS: SODIUM CHLORIDE FLUSH SYRINGE 10 ML IV SCH ×2 (09:26→22:33)
--- NOTE | 2019-03-18 09:29 | Progress Note ---
Assessment and Plan Impression: * End stage renal disease * GI bleed * Anemia secondary to ABL * Hyperkalemia * Hypertension Plan: * Patient is scheduled for hemodialysis for today. Rescheduled from yesterday * His outpatient dialysis is however MWF at [facility] * UF as tolerated * Patient refuses packed RBC transfusion as he is Faith * Receiving intravenous iron * GI recommendations noted * Diet per GI * Dose medications from a renal standpoint * Epogen TIW prn Subjective Date of service: 03/18/19 Principal diagnosis: anemia - GI bleed and CKD Interval history: Patient is awake and alert. Comfortable. Having breakfast. No nausea or vomiting. Denies any blood in the stool or melena. Objective - Vital Signs Vital signs: Vital Signs - 12hr 03/17/19 03/18/19 03/18/19 23:04 05:22 08:39 Temperature 98.4 F 98.6 F Pulse Rate 78 84 Respiratory 20 18 18 Rate Blood Pressure 151/64 148/65 O2 Sat by Pulse 97 98 Oximetry - General Appearance General appearance: well-developed, well-nourished, appears stated age EENT: PERRL, mucous membranes moist Neck: no JVD, no thyromegaly, no carotid bruit, supple, other (right IJ PermCath in place) Respiratory: Present: Clear to Ascultation Cardiology: regular, normal heart rate, S1S2, no murmurs Gastrointestinal: normal, normoactive bowel sounds Integumentary: no rash, other (left below-knee amputation. AV fistula in his left upper arm. Good bruit and thrill.) - Lab 03/18/19 04:02 03/18/19 04:02 Most recent lab results Calcium 8.4 mg/dL (8.4-10.2) 03/18/19 04:02 Magnesium 2.70 mg/dL (1.7-2.3) H 03/11/19 18:23 Magnesium 2.70 mg/dL (1.7-2.3) H 03/11/19 18:23 Medications & Allergies - Medications Allergies/Adverse Reactions: Allergies No Known Allergies Allergy (Verified 02/09/17 17:59) Home Medications: Home Medications Medication Instructions Recorded Confirmed Last Taken Type amLODIPine [Norvasc] 10 mg PO DAILY #30 tablet 02/14/17 03/11/19 Unknown Rx B Complex W-C No.20/Folic Acid 1 mg PO QDAY 03/11/19 03/11/19 Unknown History [Virt-Caps Softgel] Calcium Acetate [Phoslo] 667 mg PO TID 03/11/19 03/11/19 Unknown History Furosemide [Lasix TAB] 80 mg PO QAM 03/11/19 03/11/19 Unknown History Sevelamer Carbonate [Renvela] 800 mg PO TIDWM 03/11/19 03/11/19 Unknown History cloNIDine [Catapres] 0.1 mg PO TID 03/11/19 03/11/19 Unknown History Active Medications: Generic Name Dose Route Start Last Admin Trade Name Freq PRN Reason Stop Dose Admin Acetaminophen 650 mg 03/11/19 19:41 Tylenol PO Q4H PRN Pain MILD(1-3)/Fever >100.5/RUIZ Dextrose 50 ml 03/11/19 19:44 D50w (25gm) Syringe IV PRN PRN Hypoglycemia Sodium Chloride 100 mls @ 999 mls/hr 03/13/19 11:32 Nacl 0.9% IV MANINDER PRN Hypotension Insulin Human Regular 0 units 03/14/19 11:30 03/18/19 08:01 Humulin R SUB-Q Not Given ACHS COUNT INCLUDES [facility] Protocol Ondansetron HCl 4 mg 03/11/19 19:41 Zofran IV Q8H PRN Nausea And Vomiting Pantoprazole Sodium 40 mg 03/16/19 22:00 03/18/19 09:25 Protonix PO 40 mg BID WINSTON Administration Sodium Chloride 10 ml 03/11/19 22:00 03/17/19 22:26 Sodium Chloride Flush Syringe 10 Ml IV 10 ml BID WINSTON Administration Sodium Chloride 10 ml 03/11/19 19:41 Sodium Chloride Flush Syringe 10 Ml IV PRN PRN LINE FLUSH
--- NOTE | 2019-03-18 10:52 | Gastroenterology Progress Note ---
<SHAHRZAD PAPPAS - Last Filed: 03/18/19 10:54> Assessment and Plan 1.UGIB 2.acute on chronic anemia (baseline Hgb from 8-9, likely contributed to ESRD)- not improving 3.ESRD on HD -H/H 6.5/.3-stable -continue to monitor H/H- patient is a Mu-[employer] and refuses blood transfusion (pt aware of risks) -no active signs of bleeding -currently HD stable; reports BM yesterday with brown stool -s/p EGD 03/12/19 that showed two non-bleeding gastric antral ulcer (one with red spot-treated with epi and gold probe), and gastritis -etiology- H/H stable but w/o improvement s/p iron infusion and EPO per heme. Being compromised by chronic disease, likely contributing. -will order bleeding scan to r/o active bleeding -consider repeat EGD if positive -continue PPI -avoid NSAIDs -continue supportive care -will follow Subjective Date of service: 03/18/19 Principal diagnosis: anemia - GI bleed and CKD Interval history: GI has been re-consulted on patient for evaluation of continued GI bleed given lack of improvement of H/H. This morning patient was sitting up in bed w/o acute distress receiving dialysis. Denies any active signs of GI bleeding such as hematemesis, melena, or hematocheiza. Reports last BM was yesterday with brown stool. No abd pain or N/v. Tolerating PO. Expressed his desire to be d/c as soon as possible. Objective - Constitutional Vitals: Temp Pulse Resp BP Pulse Ox 98.6 F 84 18 148/65 98 03/18/19 05:22 03/18/19 05:22 03/18/19 08:39 03/18/19 05:22 03/18/19 05:22 General appearance: no acute distress - Respiratory Respiratory effort: normal - Cardiovascular Rhythm: regular - Gastrointestinal General gastrointestinal: Present: soft, non-tender, non-distended, normal bowel sounds - Neurologic Neurological: alert and oriented x3 - Labs CBC & Chem 7: 03/18/19 04:02 03/18/19 04:02 Labs: Laboratory Results - last 24 hr 03/17/19 03/17/19 03/17/19 12:28 16:03 21:35 WBC RBC Hgb Hct MCV MCH MCHC RDW Plt Count Add Manual Diff Total Counted Seg Neuts % (Manual) Band Neutrophils % Lymphocytes % (Manual) Reactive Lymphs % (Man) Monocytes % (Manual) Eosinophils % (Manual) Basophils % (Manual) Metamyelocytes % Myelocytes % Promyelocytes % Blast Cells % Nucleated RBC % Seg Neutrophils # Man Band Neutrophils # Lymphocytes # (Manual) Abs React Lymphs (Man) Monocytes # (Manual) Eosinophils # (Manual) Basophils # (Manual) Metamyelocytes # Myelocytes # Promyelocytes # Blast Cells # WBC Morphology Hypersegmented Neuts Hyposegmented Neuts Hypogranular Neuts Smudge Cells Toxic Granulation Toxic Vacuolation Dohle Bodies Pelger-Huet Anomaly Adolfo Rods Platelet Estimate Clumped Platelets Plt Clumps, EDTA Large Platelets Giant Platelets Platelet Satelliting Plt Morphology Comment RBC Morphology Dimorphic RBCs Polychromasia Hypochromasia Poikilocytosis Anisocytosis Microcytosis Macrocytosis Spherocytes Pappenheimer Bodies Sickle Cells Target Cells Tear Drop Cells Ovalocytes Helmet Cells [place] Bodies [place] Hilary Cells Bite Cells Crenated Cell Elliptocytes Acanthocytes (Spur) Rouleaux Hemoglobin C Crystals Schistocytes Malaria parasites Yohannes Bodies Hem Pathologist Commnt Sodium Potassium Chloride Carbon Dioxide Anion Gap BUN Creatinine Estimated GFR BUN/Creatinine Ratio Glucose POC Glucose 217 H 250 H 68 L Calcium 03/17/19 03/18/19 03/18/19 22:23 04:02 04:02 WBC 5.2 RBC 2.10 L Hgb 6.5 L Hct 19.3 L* MCV 92 MCH 31 MCHC 34 RDW 19.3 H Plt Count 139 L Add Manual Diff Complete Total Counted 100 Seg Neuts % (Manual) 65.0 Band Neutrophils % 0 Lymphocytes % (Manual) 18.0 Reactive Lymphs % (Man) 0 Monocytes % (Manual) 9.0 H Eosinophils % (Manual) 8.0 H Basophils % (Manual) 0 Metamyelocytes % 0 Myelocytes % 0 Promyelocytes % 0 Blast Cells % 0 Nucleated RBC % Not Reportable Seg Neutrophils # Man 3.4 Band Neutrophils # 0.0 Lymphocytes # (Manual) 0.9 L Abs React Lymphs (Man) 0.0 Monocytes # (Manual) 0.5 Eosinophils # (Manual) 0.4 Basophils # (Manual) 0.0 Metamyelocytes # 0.0 Myelocytes # 0.0 Promyelocytes # 0.0 Blast Cells # 0.0 WBC Morphology Not Reportable Hypersegmented Neuts Not Reportable Hyposegmented Neuts Not Reportable Hypogranular Neuts Not Reportable Smudge Cells Not Reportable Toxic Granulation Not Reportable Toxic Vacuolation Not Reportable Dohle Bodies Not Reportable Pelger-Huet Anomaly Not Reportable Adolfo Rods Not Reportable Platelet Estimate Consistent w auto Clumped Platelets Not Reportable Plt Clumps, EDTA Not Reportable Large Platelets Not Reportable Giant Platelets Not Reportable Platelet Satelliting Not Reportable Plt Morphology Comment Not Reportable RBC Morphology Not Reportable Dimorphic RBCs Not Reportable Polychromasia Not Reportable Hypochromasia Not Reportable Poikilocytosis Few Anisocytosis Few Microcytosis Not Reportable Macrocytosis Not Reportable Spherocytes Not Reportable Pappenheimer Bodies Not Reportable Sickle Cells Not Reportable Target Cells Not Reportable Tear Drop Cells Not Reportable Ovalocytes Not Reportable Helmet Cells Not Reportable [place] Bodies Not Reportable [place] Rings Not Reportable Hilary Cells Not Reportable Bite Cells Not Reportable Crenated Cell Not Reportable Elliptocytes Not Reportable Acanthocytes (Spur) Not Reportable Rouleaux Not Reportable Hemoglobin C Crystals Not Reportable Schistocytes Not Reportable Malaria parasites Not Reportable Yohannes Bodies Not Reportable Hem Pathologist Commnt No Sodium 136 L Potassium 4.8 Chloride 97.7 L Carbon Dioxide 25 Anion Gap 18 BUN 34 H Creatinine 11.1 H D Estimated GFR 6 BUN/Creatinine Ratio 3 Glucose 139 H POC Glucose 146 H Calcium 8.4 03/18/19 08:13 WBC RBC Hgb Hct MCV MCH MCHC RDW Plt Count Add Manual Diff Total Counted Seg Neuts % (Manual) Band Neutrophils % Lymphocytes % (Manual) Reactive Lymphs % (Man) Monocytes % (Manual) Eosinophils % (Manual) Basophils % (Manual) Metamyelocytes % Myelocytes % Promyelocytes % Blast Cells % Nucleated RBC % Seg Neutrophils # Man Band Neutrophils # Lymphocytes # (Manual) Abs React Lymphs (Man) Monocytes # (Manual) Eosinophils # (Manual) Basophils # (Manual) Metamyelocytes # Myelocytes # Promyelocytes # Blast Cells # WBC Morphology Hypersegmented Neuts Hyposegmented Neuts Hypogranular Neuts Smudge Cells Toxic Granulation Toxic Vacuolation Dohle Bodies Pelger-Huet Anomaly Adolfo Rods Platelet Estimate Clumped Platelets Plt Clumps, EDTA Large Platelets Giant Platelets Platelet Satelliting Plt Morphology Comment RBC Morphology Dimorphic RBCs Polychromasia Hypochromasia Poikilocytosis Anisocytosis Microcytosis Macrocytosis Spherocytes Pappenheimer Bodies Sickle Cells Target Cells Tear Drop Cells Ovalocytes Helmet Cells [place] Bodies [place] Hilary Cells Bite Cells Crenated Cell Elliptocytes Acanthocytes (Spur) Rouleaux Hemoglobin C Crystals Schistocytes Malaria parasites Yohannes Bodies Hem Pathologist Commnt Sodium Potassium Chloride Carbon Dioxide Anion Gap BUN Creatinine Estimated GFR BUN/Creatinine Ratio Glucose POC Glucose 145 H Calcium <QUEENIE CINTRON - Last Filed: 03/18/19 13:39> Assessment and Plan Pt seen and examined; agree with note above. No overt bleeding (reports brown stool); doubt on going bleed as H/H has not dropped but will obtain tagged RBC scan to rule out signs of slow/active bleeding. Objective - Constitutional Vitals: Temp Pulse Resp BP Pulse Ox 99.0 F 72 18 149/68 98 03/18/19 10:00 03/18/19 12:15 03/18/19 10:00 03/18/19 12:15 03/18/19 05:22 - Labs CBC & Chem 7: 03/18/19 04:02 03/18/19 04:02 Labs: Laboratory Results - last 24 hr 03/17/19 03/17/19 03/17/19 12:28 16:03 21:35 WBC RBC Hgb Hct MCV MCH MCHC RDW Plt Count Add Manual Diff Total Counted Seg Neuts % (Manual) Band Neutrophils % Lymphocytes % (Manual) Reactive Lymphs % (Man) Monocytes % (Manual) Eosinophils % (Manual) Basophils % (Manual) Metamyelocytes % Myelocytes % Promyelocytes % Blast Cells % Nucleated RBC % Seg Neutrophils # Man Band Neutrophils # Lymphocytes # (Manual) Abs React Lymphs (Man) Monocytes # (Manual) Eosinophils # (Manual) Basophils # (Manual) Metamyelocytes # Myelocytes # Promyelocytes # Blast Cells # WBC Morphology Hypersegmented Neuts Hyposegmented Neuts Hypogranular Neuts Smudge Cells Toxic Granulation Toxic Vacuolation Dohle Bodies Pelger-Huet Anomaly Adolfo Rods Platelet Estimate Clumped Platelets Plt Clumps, EDTA Large Platelets Giant Platelets Platelet Satelliting Plt Morphology Comment RBC Morphology Dimorphic RBCs Polychromasia Hypochromasia Poikilocytosis Anisocytosis Microcytosis Macrocytosis Spherocytes Pappenheimer Bodies Sickle Cells Target Cells Tear Drop Cells Ovalocytes Helmet Cells [place] Bodies [place] Hilary Cells Bite Cells Crenated Cell Elliptocytes Acanthocytes (Spur) Rouleaux Hemoglobin C Crystals Schistocytes Malaria parasites Yohannes Bodies Hem Pathologist Commnt Sodium Potassium Chloride Carbon Dioxide Anion Gap BUN Creatinine Estimated GFR BUN/Creatinine Ratio Glucose POC Glucose 217 H 250 H 68 L Calcium 03/17/19 03/18/19 03/18/19 22:23 04:02 04:02 WBC 5.2 RBC 2.10 L Hgb 6.5 L Hct 19.3 L* MCV 92 MCH 31 MCHC 34 RDW 19.3 H Plt Count 139 L Add Manual Diff Complete Total Counted 100 Seg Neuts % (Manual) 65.0 Band Neutrophils % 0 Lymphocytes % (Manual) 18.0 Reactive Lymphs % (Man) 0 Monocytes % (Manual) 9.0 H Eosinophils % (Manual) 8.0 H Basophils % (Manual) 0 Metamyelocytes % 0 Myelocytes % 0 Promyelocytes % 0 Blast Cells % 0 Nucleated RBC % Not Reportable Seg Neutrophils # Man 3.4 Band Neutrophils # 0.0 Lymphocytes # (Manual) 0.9 L Abs React Lymphs (Man) 0.0 Monocytes # (Manual) 0.5 Eosinophils # (Manual) 0.4 Basophils # (Manual) 0.0 Metamyelocytes # 0.0 Myelocytes # 0.0 Promyelocytes # 0.0 Blast Cells # 0.0 WBC Morphology Not Reportable Hypersegmented Neuts Not Reportable Hyposegmented Neuts Not Reportable Hypogranular Neuts Not Reportable Smudge Cells Not Reportable Toxic Granulation Not Reportable Toxic Vacuolation Not Reportable Dohle Bodies Not Reportable Pelger-Huet Anomaly Not Reportable Adolfo Rods Not Reportable Platelet Estimate Consistent w auto Clumped Platelets Not Reportable Plt Clumps, EDTA Not Reportable Large Platelets Not Reportable Giant Platelets Not Reportable Platelet Satelliting Not Reportable Plt Morphology Comment Not Reportable RBC Morphology Not Reportable Dimorphic RBCs Not Reportable Polychromasia Not Reportable Hypochromasia Not Reportable Poikilocytosis Few Anisocytosis Few Microcytosis Not Reportable Macrocytosis Not Reportable Spherocytes Not Reportable Pappenheimer Bodies Not Reportable Sickle Cells Not Reportable Target Cells Not Reportable Tear Drop Cells Not Reportable Ovalocytes Not Reportable Helmet Cells Not Reportable [place] Bodies Not Reportable [place] Rings Not Reportable Hilary Cells Not Reportable Bite Cells Not Reportable Crenated Cell Not Reportable Elliptocytes Not Reportable Acanthocytes (Spur) Not Reportable Rouleaux Not Reportable Hemoglobin C Crystals Not Reportable Schistocytes Not Reportable Malaria parasites Not Reportable Yohannes Bodies Not Reportable Hem Pathologist Commnt No Sodium 136 L Potassium 4.8 Chloride 97.7 L Carbon Dioxide 25 Anion Gap 18 BUN 34 H Creatinine 11.1 H D Estimated GFR 6 BUN/Creatinine Ratio 3 Glucose 139 H POC Glucose 146 H Calcium 8.4 03/18/19 08:13 WBC RBC Hgb Hct MCV MCH MCHC RDW Plt Count Add Manual Diff Total Counted Seg Neuts % (Manual) Band Neutrophils % Lymphocytes % (Manual) Reactive Lymphs % (Man) Monocytes % (Manual) Eosinophils % (Manual) Basophils % (Manual) Metamyelocytes % Myelocytes % Promyelocytes % Blast Cells % Nucleated RBC % Seg Neutrophils # Man Band Neutrophils # Lymphocytes # (Manual) Abs React Lymphs (Man) Monocytes # (Manual) Eosinophils # (Manual) Basophils # (Manual) Metamyelocytes # Myelocytes # Promyelocytes # Blast Cells # WBC Morphology Hypersegmented Neuts Hyposegmented Neuts Hypogranular Neuts Smudge Cells Toxic Granulation Toxic Vacuolation Dohle Bodies Pelger-Huet Anomaly Adolfo Rods Platelet Estimate Clumped Platelets Plt Clumps, EDTA Large Platelets Giant Platelets Platelet Satelliting Plt Morphology Comment RBC Morphology Dimorphic RBCs Polychromasia Hypochromasia Poikilocytosis Anisocytosis Microcytosis Macrocytosis Spherocytes Pappenheimer Bodies Sickle Cells Target Cells Tear Drop Cells Ovalocytes Helmet Cells [place] Bodies [place] Rings [place] Cells Bite Cells Crenated Cell Elliptocytes Acanthocytes (Spur) Rouleaux Hemoglobin C Crystals Schistocytes Malaria parasites Yohannes Bodies Hem Pathologist Commnt Sodium Potassium Chloride Carbon Dioxide Anion Gap BUN Creatinine Estimated GFR BUN/Creatinine Ratio Glucose POC Glucose 145 H Calcium
[2019-03-18] MEDS ORDERED: FLUSH HEPARIN IV ONE (14:25)
[2019-03-18] MEDS ORDERED: NACL 0.9 (PRIMING MACHINE ONLY DIALYSIS) MC ONE (15:00)
[2019-03-19 05:12] LABS: Basophils % (Auto) 0.5 % (0.0-1.8); Eosinophils # (Auto) 0.2 K/mm3 (0.0-0.4); Eosinophils % (Auto) 3.7 % (0.0-4.3); Hemoglobin 6.6 gm/dl (11.8-15.2); Lymphocytes # (Auto) 0.5 K/mm3 (1.2-5.4); Lymphocytes % (Auto) 10.8 % (13.4-35.0); Mean Corpuscular HGB Conc 34 % (32-34); Mean Corpuscular Volume 91 fl (84-94); Monocytes # (Auto) 0.6 K/mm3 (0.0-0.8); Platelet Count 154 K/mm3 (140-440); Red Blood Count 2.12 M/mm3 (3.65-5.03); Red Cell Distribution Width 19.9 % (13.2-15.2)
[2019-03-19 05:16] LABS: Hematocrit 19.3 % (35.5-45.6)
[2019-03-19 05:36] LABS: Calcium 7.9 mg/dL (8.4-10.2)
[2019-03-19] MEDS: HumuLIN R SUB-Q SCH ×3 (08:09→16:30)
[2019-03-19] MEDS: PROTONIX PO SCH (09:05)
--- NOTE | 2019-03-19 10:15 | Progress Note ---
Assessment and Plan Impression: * End stage renal disease * GI bleed * Anemia secondary to ABL * Hyperkalemia * Hypertension Plan: * Patient had uneventful hemodialysis yesterday. * His outpatient dialysis is however MWF at [facility] . Switch his dialysis days back to MWF * UF as tolerated * Patient refuses packed RBC transfusion as he is [employer] * GI recommendations noted * Diet per GI * Dose medications from a renal standpoint * Epogen TIW prn Subjective Date of service: 03/19/19 Principal diagnosis: anemia - GI bleed and CKD Interval history: Patient is comfortable. Denies any shortness of breath. No nausea or vomiting. No hematochezia or melena. Patient refusing to have bleeding scan as it requires reinfusion of his blood. Objective - Vital Signs Vital signs: Vital Signs - 12hr 03/19/19 06:06 Temperature 98.8 F Pulse Rate 81 Respiratory 16 Rate Blood Pressure 121/65 O2 Sat by Pulse 97 Oximetry - General Appearance General appearance: well-developed, well-nourished, appears stated age EENT: PERRL, mucous membranes moist Neck: no JVD, no thyromegaly, no carotid bruit, supple, other (right IJ PermCath in place) Respiratory: Present: Clear to Ascultation Cardiology: regular, normal heart rate, S1S2, no murmurs Gastrointestinal: normal, normoactive bowel sounds Integumentary: other (left BKA. AV fistula left upper arm. Not mature yet.) - Lab 03/19/19 04:14 03/19/19 04:14 Most recent lab results Calcium 7.9 mg/dL (8.4-10.2) L 03/19/19 04:14 Magnesium 2.70 mg/dL (1.7-2.3) H 03/11/19 18:23 Magnesium 2.70 mg/dL (1.7-2.3) H 03/11/19 18:23 Medications & Allergies - Medications Allergies/Adverse Reactions: Allergies No Known Allergies Allergy (Verified 02/09/17 17:59) Home Medications: Home Medications Medication Instructions Recorded Confirmed Last Taken Type amLODIPine [Norvasc] 10 mg PO DAILY #30 tablet 02/14/17 03/11/19 Unknown Rx B Complex W-C No.20/Folic Acid 1 mg PO QDAY 03/11/19 03/11/19 Unknown History [Virt-Caps Softgel] Calcium Acetate [Phoslo] 667 mg PO TID 03/11/19 03/11/19 Unknown History Furosemide [Lasix TAB] 80 mg PO QAM 03/11/19 03/11/19 Unknown History Sevelamer Carbonate [Renvela] 800 mg PO TIDWM 03/11/19 03/11/19 Unknown History cloNIDine [Catapres] 0.1 mg PO TID 03/11/19 03/11/19 Unknown History Active Medications: Generic Name Dose Route Start Last Admin Trade Name Freq PRN Reason Stop Dose Admin Acetaminophen 650 mg 03/11/19 19:41 Tylenol PO Q4H PRN Pain MILD(1-3)/Fever >100.5/RUIZ Dextrose 50 ml 03/11/19 19:44 D50w (25gm) Syringe IV PRN PRN Hypoglycemia Sodium Chloride 100 mls @ 999 mls/hr 03/13/19 11:32 Nacl 0.9% IV MANINDER PRN Hypotension Insulin Human Regular 0 units 03/14/19 11:30 03/19/19 08:09 Humulin R SUB-Q Not Given ACHS WINSTON Protocol Ondansetron HCl 4 mg 03/11/19 19:41 Zofran IV Q8H PRN Nausea And Vomiting Pantoprazole Sodium 40 mg 03/16/19 22:00 03/19/19 09:05 Protonix PO 40 mg BID WINSTON Administration Sodium Chloride 10 ml 03/11/19 22:00 03/18/19 22:33 Sodium Chloride Flush Syringe 10 Ml IV 10 ml BID WINSTON Administration Sodium Chloride 10 ml 03/11/19 19:41 Sodium Chloride Flush Syringe 10 Ml IV PRN PRN LINE FLUSH
--- NOTE | 2019-03-19 10:35 | Gastroenterology Progress Note ---
<SHAHRZAD PAPPAS - Last Filed: 03/19/19 10:39> Assessment and Plan 1.UGIB 2.acute on chronic anemia (baseline Hgb from 8-9, likely contributed to ESRD)- not improving 3.ESRD on HD -H/H 6.6/19.3-slight trend up -continue to monitor H/H- patient is a Taoism and refuses blood transfusion (pt aware of risks) -no active signs of bleeding - last BM with brown stool -s/p EGD 03/12/19 that showed two non-bleeding gastric antral ulcer (one with red spot-treated with epi and gold probe), and gastritis -etiology- H/H stable with slight trend up. No clinical evidence of overt bleeding; doubt on going bleed as H/H has not dropped. Being compromised by chronic disease, likely contributing. -clinically, patient is stable. Denies abd pain or N/V. Tolerating PO. -patient refused tagged RBC scan yesterday due to church beliefs -no plan for repeat EGD at this time unless overt bleeding develops -continue PPI -avoid NSAIDs -continue supportive care -will defer further recommendations for anemia to hematology -patient okay to be d/c per GI standpoint on PPI with f/u in clinic -will sign off, please call if needed Subjective Date of service: 03/19/19 Principal diagnosis: anemia - GI bleed Interval history: No acute distress or GI complaints. Denies active signs of bleeding overnight or this am. Objective - Constitutional Vitals: Temp Pulse Resp BP Pulse Ox 98.8 F 81 16 121/65 97 03/19/19 06:06 03/19/19 06:06 03/19/19 06:06 03/19/19 06:06 03/19/19 06:06 General appearance: no acute distress - Respiratory Respiratory effort: normal - Cardiovascular Rhythm: regular - Gastrointestinal General gastrointestinal: Present: soft, non-tender, non-distended, normal bowel sounds - Neurologic Neurological: alert and oriented x3 - Labs CBC & Chem 7: 03/19/19 04:14 03/19/19 04:14 Labs: Laboratory Results - last 24 hr 03/18/19 03/18/19 03/19/19 17:09 21:44 04:14 WBC 4.3 L RBC 2.12 L Hgb 6.6 L Hct 19.3 L* MCV 91 MCH 31 MCHC 34 RDW 19.9 H Plt Count 154 Lymph % (Auto) 10.8 L [place] % (Auto) 15.0 H Eos % (Auto) 3.7 Baso % (Auto) 0.5 Lymph # 0.5 L [place] # 0.6 Eos # 0.2 Baso # 0.0 Seg Neutrophils % 70.0 Seg Neutrophils # 3.0 Sodium Potassium Chloride Carbon Dioxide Anion Gap BUN Creatinine Estimated GFR BUN/Creatinine Ratio Glucose POC Glucose 230 H 272 H Calcium 03/19/19 03/19/19 04:14 07:36 WBC RBC Hgb Hct MCV MCH MCHC RDW Plt Count Lymph % (Auto) [place] % (Auto) Eos % (Auto) Baso % (Auto) Lymph # [place] # Eos # Baso # Seg Neutrophils % Seg Neutrophils # Sodium 136 L Potassium 4.0 Chloride 97.2 L Carbon Dioxide 27 Anion Gap 16 BUN 22 H Creatinine 7.8 H Estimated GFR 9 BUN/Creatinine Ratio 3 Glucose 106 H POC Glucose 111 H Calcium 7.9 L <QUEENIE CINTRON - Last Filed: 03/19/19 11:31> Assessment and Plan Patient seen and examined. Agree with note above. Objective - Constitutional Vitals: Temp Pulse Resp BP Pulse Ox 97.2 F L 73 16 120/61 97 03/19/19 10:15 03/19/19 11:15 03/19/19 10:15 03/19/19 11:15 03/19/19 06:06 - Labs CBC & Chem 7: 03/19/19 04:14 03/19/19 04:14 Labs: Laboratory Results - last 24 hr 03/18/19 03/18/19 03/19/19 17:09 21:44 04:14 WBC 4.3 L RBC 2.12 L Hgb 6.6 L Hct 19.3 L* MCV 91 MCH 31 MCHC 34 RDW 19.9 H Plt Count 154 Lymph % (Auto) 10.8 L [place] % (Auto) 15.0 H Eos % (Auto) 3.7 Baso % (Auto) 0.5 Lymph # 0.5 L [place] # 0.6 Eos # 0.2 Baso # 0.0 Seg Neutrophils % 70.0 Seg Neutrophils # 3.0 Sodium Potassium Chloride Carbon Dioxide Anion Gap BUN Creatinine Estimated GFR BUN/Creatinine Ratio Glucose POC Glucose 230 H 272 H Calcium 03/19/19 03/19/19 04:14 07:36 WBC RBC Hgb Hct MCV MCH MCHC RDW Plt Count Lymph % (Auto) [place] % (Auto) Eos % (Auto) Baso % (Auto) Lymph # [place] # Eos # Baso # Seg Neutrophils % Seg Neutrophils # Sodium 136 L Potassium 4.0 Chloride 97.2 L Carbon Dioxide 27 Anion Gap 16 BUN 22 H Creatinine 7.8 H Estimated GFR 9 BUN/Creatinine Ratio 3 Glucose 106 H POC Glucose 111 H Calcium 7.9 L
--- NOTE | 2019-03-19 11:22 | Discharge Summary ---
Providers - Providers Date of Admission: 03/11/19 19:10 Attending physician: QUENTIN DAWKINS MD 03/11/19 17:52 Consult to Physician [CONS] Urgent Comment: Dr. Martinez spoke with Dr. Vee @ [phone] Consulting Provider: PIYUSH OCAMPO Physician Instructions: Reason For Exam: gi bleed 03/11/19 17:53 Consult to Physician [CONS] Stat Comment: DR MARTINEZ SPK W/ DR NELSON @[phone] Consulting Provider: DALY ESCALANTE Physician Instructions: Reason For Exam: gi bleed esrd 03/11/19 21:20 Consult to Wound/ET Nurse [CONS] Routine Reason For Exam: wound eval 03/13/19 13:30 Consult to Physician [CONS] Routine Comment: Consulting Provider: SILVIO COFFEY Physician Instructions: Reason For Exam: worsening anemia in Jehovah witness, other options Primary care physician: ANISH TAYLOR MD Hospitalization Reason for admission: anemia Condition: Stable Hospital course: Patient is 63-year-old -[place]i man who is a Jehovah Witness with a history of ESRD on HD M/W/F, DM2 with neuropathy, HTN and left BKA who presents to [facility] ED with nausea, vomiting, hematemesis, and dark bloody stools. CXR did not show any acute cardiopulmonary abnormalities. He was found to be anemic with hemoglobin of 9.3. On presentation the patient was given iron infusion and EPO, Gi was consulted and despite 2 EGD, no source was found except for gastric ulcers with no bleed. Epinephrine injection was done and PPI added. Stool did not Show any occult blood. Recommended follow-up artificial resuscitation for bloodless surgery to further evaluate to see if any other alternative chemotherapy found this was discussed with the patient was asked receptive to this. Patient refuses bleeding scan done here. During this hospitalization on A1c was checked which showed a hemoglobin A1c of 8 with it have a discussion with the patient about diabetes patient was started on low-dose glipizide continue to monitor outpatient. Precipitatious Drop in Hemoglobin Acute GI hemorrhage: Gastric Ulcers s/p epi Diabetes Mellitus ESRD on HD M/W/F: Acute on chronic Anemia: Hyperkalemia: Mild hyponatremia, r HTN stable: Decubitus ulcers, poa with Right 2nd and 3th toe, dry gangrene Jehovah Witness, Disposition: - TO HOME OR SELFCARE Time spent for discharge: 35 mins Core Measure Documentation - Palliative Care Palliative Care/ Comfort Measures: Not Applicable - Core Measures Any of the following diagnoses?: none - VTE Discharge Requirements Deep Vein Thrombosis/Pulmonary Embolism Present on Admission: No Exam - Physical Exam Narrative exam: Gen: WDWN, NAD, Awake, Alert, Orientated and upsets HEENT: NCAT, EOMI, PERRL, OP Clear Neck: supple, no adenopathy, no thyromegaly, no JVD CVS/Heart: RRR, normal S1S2, pulses present bilaterally Chest/Lungs: CTA B, Symmetrical chest expansion, good air entry bilaterally GI/Abdomen: soft, NTND, good bowel sounds, no guarding or rebound /Bladder: no suprapubic tenderness, no CVA or paraspinal tenderness Extermity/Skin: right 2nd and 3rd toe dry gangrene and dry pressure ulcer on left stump MSK: FROM x 3,s/p old left BKA Neuro: CN 2-12 grossly intact, no new focal deficits Psych: calm - Constitutional Vitals: Temp Pulse Resp BP Pulse Ox 97.2 F L 80 16 156/58 97 03/19/19 10:15 03/19/19 10:15 03/19/19 10:15 03/19/19 10:15 03/19/19 06:06 Plan Activity: advance as tolerated, fall precautions Diet: renal Special Instructions: record daily BP diary Additional Instructions: avoid all NSAIDS Follow up with: ANISH TAYLOR MD [Primary Care Provider] - 3-5 Days DALY ESCALANTE MD [Staff Physician] - 7 Days Forms: Accompanied Note Prescriptions: Ferrous Sulfate [Feosol 325 MG tab] 325 mg PO BID #60 tablet Pantoprazole [Protonix TAB] 40 mg PO DAILY #30 tablet
[2019-03-19] MEDS ORDERED: FERRLECIT 125 MG in NACL 0.9% 100 ML IV ONE (12:51)
[2019-03-19] MEDS ORDERED: PROCRIT SUB-Q ONE (13:05)
[2019-03-19] MEDS: SODIUM CHLORIDE FLUSH SYRINGE 10 ML IV SCH (15:46)
[2019-03-19 17:17] VITALS: BP 141/38
== END 2019-03-19 20:25 | disposition home or self-care (01) | DRG 377 ==
LOC: ED 17:28 → IMCU 19:10 → 3A 03-16 20:00
PROVIDERS: ADMIT Internal Medicine; ATTEND Internal Medicine
PROC: 5A1D70Z Performance of Urinary Filtration, Intermittent, Less than 6 Hours Per Day (ICD-10-PCS; principal; 2019-03-12)
PROC: 0W3P8ZZ Control Bleeding in Gastrointestinal Tract, Via Natural or Artificial Opening Endoscopic (ICD-10-PCS; 2019-03-12)
PROC: 5A1D70Z Performance of Urinary Filtration, Intermittent, Less than 6 Hours Per Day (ICD-10-PCS; 2019-03-13)
PROC: 5A1D70Z Performance of Urinary Filtration, Intermittent, Less than 6 Hours Per Day (ICD-10-PCS; 2019-03-15)
PROC: 5A1D70Z Performance of Urinary Filtration, Intermittent, Less than 6 Hours Per Day (ICD-10-PCS; 2019-03-18)
PROC: 5A1D70Z Performance of Urinary Filtration, Intermittent, Less than 6 Hours Per Day (ICD-10-PCS; 2019-03-19)
DX: K25.4 Chronic or unspecified gastric ulcer with hemorrhage (principal); N18.6 End stage renal disease; E87.1 Hypo-osmolality and hyponatremia; I12.0 Hypertensive chronic kidney disease with stage 5 chronic kidney disease or end stage renal disease; D62 Acute posthemorrhagic anemia; N25.81 Secondary hyperparathyroidism of renal origin; E11.52 Type 2 diabetes mellitus with diabetic peripheral angiopathy with gangrene; I96 Gangrene, not elsewhere classified; K29.71 Gastritis, unspecified, with bleeding; E11.22 Type 2 diabetes mellitus with diabetic chronic kidney disease; E11.40 Type 2 diabetes mellitus with diabetic neuropathy, unspecified; D64.9 Anemia, unspecified; E87.6 Hypokalemia; S91.301A Unspecified open wound, right foot, initial encounter; X58.XXXA Exposure to other specified factors, initial encounter; T39.315A Adverse effect of propionic acid derivatives, initial encounter; L89.899 Pressure ulcer of other site, unspecified stage; E87.5 Hyperkalemia; D69.6 Thrombocytopenia, unspecified; Y93.89 Activity, other specified; Y92.89 Other specified places as the place of occurrence of the external cause; Y99.8 Other external cause status; Z89.512 Acquired absence of left leg below knee; Z90.49 Acquired absence of other specified parts of digestive tract; Z99.2 Dependence on renal dialysis
CPT/HCPCS: 36415; 71045; 80048; 80053; 80074; 82271; 82550; 82607; 82728; 82747; 82962; 83010; 83036; 83550; 83690; 83735; 85007; 85014; 85018; 85025; 85027; 85610; 86706; 86803; 86850; 86900; 86901; 93005; 93010; G0378; C9113; J0171; J0610; J0885; J1642; J1815; J2250; J2405; J2597; J2704; J2916; J3010; J7030